=== PATIENT | male | born 1970 | race Caucasian/White ===

== ENCOUNTER 2023-11-08 08:13 | Outpatient (OUT) | payer BC, SELFPAY ==
[2023-11-08 09:13] LABS: Microalbumin Urine Random <1.3 mg/dL (<=30.0)
[2023-11-08 10:45] LABS: Estimated Average Glucose 171 mg/dL; Glycohemoglobin A1C 7.6 % (4.5-6.2)
== END 2023-11-08 08:14 | disposition home or self-care (01) ==
LOC: LAB 08:18
PROVIDERS: PCP Family Medicine; Visit Provider Family Medicine
DX: E11.65 Type 2 diabetes mellitus with hyperglycemia (principal)
CPT/HCPCS: 36415; 82043; 83036

== ENCOUNTER 2024-05-13 09:03 | Outpatient (OUT) | payer BC, SELFPAY ==
--- OUTSIDE RECORDS SUMMARY | 2024-05-13 09:25 | XMS_ITS | CCD ---
Author Organization [facility] Inform ion Partnership [facility] Care Team Providers Care Relay Shop Tester Name Role Phone LUIS ALFREDO, DR BETHANY Castillo Attending Unavailable LUIS ALFREDO, DR BETHANY Castillo Admitting Unavailable ROXANAEREVerenice, DR BETHANY Castillo Primary Care Unavailable LUIS ALFREDO, DR BETHANY Castillo Consulting Unavailable LUIS ALFREDO, DR BETHANY Castillo Admitting Unavailable VASQUEZR, DR BETHANY Castillo Primary Care Unavailable LUIS ALFREDO, DR BETHANY Castillo Consulting Unavailable LUIS ALFREDO, DR BETHANY Castillo Attending Unavailable KiannaGema Unavailable BETHANY LOBATO Attending Unavailable LUIS ALFREDO, BETHANY Attending Unavailable Medications Current Medications Medication Drug Class(es) Dates Sig (Normalized) Sig (Original) atorvastatin (1 source) HMG-CoA Reductase Inhibitor Lipitor Active Childrens Aspirin (1 source) Childrens Aspiri n Active glipiZIDE (1 source) Sulfonylurea glipiZIDE Active Lisinopril (1 source) Angiotensin Converting Enzyme Inhibitor Lisinopril Active metFORMIN (1 source) Biguanide metFORMIN HCl ER Active Multivitamin preparation (1 source) Multivitamin Act elizabeth pioglitazone (1 source) Peroxisome Proliferator Receptor alpha Agonist, Peroxisome Proliferator Receptor gamma Agonist, Thiazolidinedione Pioglitazone HCl Active Problems Problem Classification Problem Date Documented Da te Episodic/Chronic Coagulation and hemorrhagic disorders (1 source) Factor VIII deficiency; 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 Diabetes mellitus with complications (1 source) Type 2 diabetes mellitus with hyperglycemia; Translations: [TYPE 2 DM W/HYPERGLYCEMIA] Onset: 07-13-2022 Chronic Nutritional deficiencies (1 source) Vitamin D deficiency, unspecified; Translations: [VITAMIN D DEFICIENCY UNSPECIFIED] Onset: 07-13-2022 Chronic Other endocrine disorders (1 source) Testicular hypofunction; 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 pyogenes Org specific cx Ql (Throat) Negative cVidya Other [facility] cVidya Other TESTOSTERONE, TOTALon 2022 Testosterone [Mass/Vol] 285 ng/dL Normal 264-916 [facility] Comment on above: Result Comment: Adul t male reference interval is based on a population of healthy nonobese males (BMI <30) between 19 and 39 years old. Keyona et.al. JCEM 2017,102;0898-4742. PMID: [id number]. Performed By: #### T ESTTOT #### [facility] [address] [place] [address] Dr. Bakari Sullivan CBC AUTO DIFFon 03-18-2023 BASO # 0.1 103/ul Normal 0.0-0.1 [facility] Comment on above: Performed By: #### C BC #### [facility] [address] [place] [address] Dr. Bakari Sullivan Basophils/100 WBC (Bld) 0.8 % Normal 0.2-2.0 [facility] Comment on above: Performed By: #### C BC #### [facility] [address] [place] [address] Dr. Bakari Sullivan EO # 0.1 103/ul Normal 0.0-0.7 [facility] Comment on above: Performed By: #### C BC #### [facility] [address] [place] [address] Dr. Bakari Sullivan Eosinophils/100 WBC (Bld) 2.3 % Normal 0.9-7.0 [facility] Comment on above: Performed By: #### C BC #### [facility] [address] [place] [address] Dr. Bakari Sullivan Erythrocyte distribution width (RBC) [Ratio] 14.2 % Normal 11.0-15.0 [facility] Comment on above: Performed By: #### C BC #### [facility] [address] [place] [address] Dr. Bakari Sullivan Hematocrit (Bld) [Volume fraction] 45.2 % Normal 42.0-54.0 [facility] Comment on above: Performed By: #### C BC #### [facility] [address] [place] [address] Dr. Bakari Sullivan Hemoglobin (Bld) [Mass/Vol] 15.0 g/dL Normal 14.0-18.0 [facility] Comment on above: Performed By: #### C BC #### [facility] [address] [place] [address] Dr. Bakari Sullivan IG # 0.03 10e3/ul Normal 0.00-0.03 [facility] Comment on above: Performed By: #### C BC #### [facility] [address] [place] [address] Dr. Bakari Sullivan IG % 0.5 % Normal 0.0-0.5 [facility] Comment on above: Performed By: #### C BC #### [facility] [address] [place] [address] Dr. Bakari Sullivan LYMPH # 2.0 103/ul Normal 1.2-3.8 [facility] Comment on above: Performed By: #### C BC #### [facility] [address] [place] [address] Dr. Bakari Sullivan Lymphocytes/100 WBC (Bld) 31.6 % Normal 20.5-60.0 [facility] Comment on above: Performed By: #### C BC #### [facility] [address] [place] [address] Dr. Bakari Sullivan MANUAL DIFF REQ NO Normal [facility] Comment on above: Performed By: #### C BC #### [facility] [address] [place] [address] Dr. Bakari Sullivan MCH (RBC) [Entitic mass] 26.6 pg Normal 25.9-34.0 [facility] Comment on above: Performed By: #### C BC #### [facility] [address] [place] [address] Dr. Bakari Sullivan MCHC (RBC) [Mass/Vol] 33.2 g/dL Normal 29.9-35.2 [facility] Comment on above: Performed By: #### C BC #### [facility] [address] [place] [address] Dr. Bakari Sullivan MCV (RBC) [Entitic vol] 80.1 fL Normal 80.0-94.0 [facility] Comment on above: Performed By: #### C BC #### [facility] [address] [place] [address] Dr. Bakari Sullivan MONO # 0.5 103/ul Normal 0.3-0.8 [facility] Comment on above: Performed By: #### C BC #### [facility] [address] [place] [address] Dr. Bakari Sullivan Monocytes/100 WBC (Bld) 8.7 % Normal 1.7-12.0 [facility] Comment on above: Performed By: #### C BC #### [facility] [address] [place] [address] Dr. Bakari Sullivan NEUT # 3.5 103/ul Normal 1.4-6.5 [facility] Comment on above: Performed By: #### C BC #### [facility] [address] [place] [address] Dr. Bakari Sullivan Neutrophils/100 WBC (Bld) 56.1 % Normal 43.0-75.0 [facility] Comment on above: Performed By: #### C BC #### [facility] [address] [place] [address] Dr. Bakari Sullivan Platelet mean volume (Bld) [Entitic vol] 9.8 fL Normal 9.5-13.5 [facility] Comment on above: Performed By: #### C BC #### [facility] [address] [place] [address] Dr. Bakari Sullivan PLT 214 103/ul Normal 150-450 [facility] Comment on above: Performed By: #### C BC #### [facility] [address] [place] [address] Dr. Bakari Sullivan RBC 5.64 106/ul Normal 4.70-6.10 [facility] Comment on above: Performed By: #### C BC #### [facility] [address] [place] [address] Dr. Bakari Sullivan WBC 6.2 103/ul Normal 4.0-11.0 [facility] Comment on above: Performed By: #### C BC #### [facility] [address] [place] [address] Dr. Bakari Sullivan GLYCOHEMOGLOBIN A1Con 2022 ADA RECOMMENDATION SEE BELOW Normal [facility] Comment on above: Result Comment: ADA RECOMMENDED LIMIT 4.0 - 6.0 ADA THERAPEUTIC TARGET < 7.0 ACTION SUGGESTED > 7.0 Performed By: #### A 1C #### [facility] [address] [place] [address] Dr. Bakari Sullivan Glucose [Mass/Vol] 183 mg/dL Normal [facility] Comment on above: Performed By: #### A 1C #### [facility] [address] [place] [address] Dr. Bakari Sullivan HbA1c (Bld) [Mass fraction] 8.0 % Critically high 4.5-6.2 [facility] Comment on above: Performed By: #### A 1C #### [facility] [address] [place] [address] Dr. Bakari Sullivan LIPID PROFILEon 03-18-2023 CHOL-HDL RATIO NORM SEE BELOW Normal [facility] Comment on above: Result Comment: 3.3 - 4.4 LOW RISK 4.4 - 7.1 AVERAGE RISK 7.1 - 11.0 MODERATE RISK >11.0 HIGH RISK Performed By: #### C BC #### [facility] [address] [place] [address] Dr. Bakari Sullivan Cholesterol [Mass/Vol] 128 mg/dL Normal <=200 [facility] Comment on above: Performed By: #### C BC #### [facility] [address] [place] [address] Dr. Bakari Sullivan Cholesterol in HDL [Mass/Vol] 53 mg/dL Normal 40-60 [facility] Comment on above: Performed By: #### C BC #### [facility] [address] [address] [address] Bakari Sullivan Cholesterol in LDL [Mass/Vol] 61.4 mg/dL Normal [facility] Comment on above: Performed By: #### C BC #### [facility] [address] [address] [address] Bakari Sullivan Cholesterol.total/Ch olesterol in HDL [Mass ratio] 2.4 {ratio} Normal [facility] Comment on above: Performed By: #### C BC #### [facility] [address] [address] [address] Bakari Sullivan HDL NORMAL > or = 60 mg/dl - LOW CARDIOVASCULAR RISK <40 mg/dl - HIGH CARDIOVASCULAR RISK Normal [facility] Comment on above: Performed By: #### C BC #### [facility] [address] [place] [address] Dr. Bakari Sullivan LDL CALC NORMAL SEE BELOW Normal [facility] Comment on above: Result Comment: <100 mg/dl OPTIMAL 100 - 129 mg/dl NEAR OR ABOVE OPTIMAL 130 - 159 mg/dl BORDERLINE HIGH 160 - 189 mg/dl HIGH >190 mg/dl VERY HIGH Performed By: #### C BC #### [facility] [address] [place] [address] Dr. Bakari Sullivan Triglyceride [Mass/Vol] 68 mg/dL Normal <=150 [facility] Comment on above: Performed By: #### C BC #### [facility] [address] [address] [address] Bakari Sullivan VLDL CALC 13.6 mg/dL Normal [facility] Comment on above: Performed By: #### C BC #### [facility] [address] [address] [address] Bakari Sullivan LIVER PROFILEon 03-18-2023 Albumin [Mass/Vol] 3.5 g/dL Normal 3.4-5.[address] [facility] Comment on above: Performed By: #### C BC #### [facility] [address] [place] [address] Dr. Bakari Sullivan Albumin/Globulin [Mass ratio] 0.9 {ratio} Normal [facility] Comment on above: Performed By: #### C BC #### [facility] [address] [place] [address] Dr. Bakari Sullivan ALP [Catalytic activity/Vol] 65 U/L Normal 46-116 [facility] Comment on above: Performed By: #### C BC #### [facility] [address] [address] [address] Bakari Sullivan ALT [Catalytic activity/Vol] 26 U/L Normal 16-63 [facility] Comment on above: Performed By: #### C BC #### [facility] [address] [address] [address] Bakari Sullivan AST [Catalytic activity/Vol] 17 U/L Normal 15-37 [facility] Comment on above: Performed By: #### C BC #### [facility] [address] [place] [address] Dr. Bakari Sullivan BILI, CONJUGATED 0.2 mg/dL Normal 0.0-0.2 [facility] Comment on above: Performed By: #### C BC #### [facility] [address] [address] [address] Bakari Sullivan Bilirubin [Mass/Vol] 1.1 mg/dL Critically high 0.2-1.0 [facility] Comment on above: Performed By: #### C BC #### [facility] [address] [place] [address] Dr. Bakari Sullivan Globulin (S) [Mass/Vol] 3.8 g/dL Normal [facility] Comment on above: Performed By: #### C BC #### [facility] [address] [place] [address] Dr. Bakari Sullivan Protein [Mass/Vol] 7.3 g/dL Normal 6.4-8.[address] [facility] Comment on above: Performed By: #### C BC #### [facility] [address] [place] [address] Dr. Bakari Sullivan PROF CHEM 8 (BAS METB)on Anion gap [Moles/Vol] 8.4 mmol/L Normal [facility] Comment on above: Performed By: #### C BC #### [facility] [address] [address] [address] Bakari Sullivan Calcium [Mass/Vol] 9.1 mg/dL Normal 8.5-10.[address] [facility] Comment on above: Performed By: #### C BC #### [facility] [address] [address] [address] Bakari Sullivan Chloride [Moles/Vol] 103 mmol/L Normal 98-107 [facility] Comment on above: Performed By: #### C BC #### [facility] [address] [place] [address] Dr. Bakari Sullivan CO2 [Moles/Vol] 28.8 mmol/L Normal 21.0-32.0 [facility] Comment on above: Performed By: #### C BC #### [facility] [address] [place] [address] Dr. Bakari Sullivan Creatinine [Mass/Vol] 0.95 mg/dL Normal 0.70-1.30 [facility] Comment on above: Performed By: #### C BC #### [facility] [address] [place] [address] Dr. Bakari Sullivan EGFR-AF HUNGARIAN >60 Normal >=60 [facility] Comment on above: Performed By: #### C BC #### [facility] [address] [place] [address] Dr. Bakari Sulliavn EGFR-NON AF HUNGARIAN >60 Normal >=60 [facility] Comment on above: Performed By: #### C BC #### [facility] [address] [place] [address] Dr. Bakari Sullivan Glucose [Mass/Vol] 230 mg/dL Critically high 74-106 [facility] Comment on above: Performed By: #### C BC #### [facility] [address] [place] [address] Dr. Bakari Sullivan Potassium [Moles/Vol] 4.2 mmol/L Normal 3.5-5.1 [facility] Comment on above: Performed By: #### C BC #### [facility] [address] [address] [address] Bakari Sullivan Sodium [Moles/Vol] 136 mmol/L Normal 136-[address] [facility] Comment on above: Performed By: #### C BC #### [facility] [id number] Bakari Sullivan Urea nitrogen [Mass/Vol] 16.0 mg/dL Normal 7.0-18.0 [facility] Comment on above: Performed By: #### C BC #### [facility] [address] [address] [address] Bakari Sullivan Urea nitrogen/Creatinine [Mass ratio] 16.8 mg/mg Normal [facility] Comment on above: Performed By: #### C BC #### [facility] [address] [address] [address] Bakari Sullivan TSHon 03-18-2023 TSH 2.528 uIU/mL Normal 0.358-3.740 [facility] Comment on above: Performed By: #### C BC #### [facility] [id number] Bakari Sullivan MICROALBUMIN URINEon 022 Albumin, Urine <3.0 Normal Not Estab. [facility] Comment on above: Result Comment: Ve rified by repeat analysis Performed By: #### M ALBLC #### [facility] [address] [address] [address] Bakari Sullivan TESTOSTERONE, TOTALon 2021 Testosterone [Mass/Vol] 215 ng/dL Critically low 264-916 [facility] Comment on above: Result Comment: Adul t male reference interval is based on a population of healthy nonobese males (BMI <30) between 19 and 39 years old. desiree Rand.al. JCEM 2017,102;2291-3130. PMID: [id number]. Performed By: #### T ESTTOT #### [facility] [address] [address] [address] Bakari Sullivan VIT D 25-OH LABCORPon 2021 Vitamin D, 25-Hydroxy 36.7 ng/mL Normal 30.0-100.0 [facility] Comment on above: Result Comment: Concepcion min D deficiency has been defined by the [place] of [employer] and an Endocrine Society practice guideline as a level of serum 25-OH vitamin D less than 20 ng/mL (1,2). The Endocrine Society went on to further define vitamin D insufficiency as a level between 21 and 29 ng/mL (2). 1. IOM ([place] of [employer]). 2010. Dietary reference intakes for calcium and D. Richard [place]: The National Academies Press. 2. Janet MF, Nancy SÁNCHEZ, Palmoo LERMA, et al. Evaluation, treatment, and prevention of vitamin D deficiency: an Endocrine Society clinical practice guideline. JCEM. 2010; 96(7):1911-30. Performed By: #### V ITADLC #### [facility] [address] [place] [address] Dr. Bakari Sullivan CBC AUTO DIFFon 07-12-2022 BASO # 0.1 103/ul Normal 0.0-0.1 [facility] Comment on above: Performed By: #### C BC #### [facility] [address] [address] [address] Bakari Sullivan Basophils/100 WBC (Bld) 0.9 % Normal 0.2-2.0 [facility] Comment on above: Performed By: #### C BC #### [facility] [address] [place] [address] Dr. Bakari Sullivan EO # 0.1 103/ul Normal 0.0-0.7 [facility] Comment on above: Performed By: #### C BC #### [facility] [address] [address] [address] Bakari Sullivan Eosinophils/100 WBC (Bld) 1.6 % Normal 0.9-7.0 [facility] Comment on above: Performed By: #### C BC #### [facility] [address] [place] [address] Dr. Bakari Sullivan Erythrocyte distribution width (RBC) [Ratio] 14.5 % Normal 11.0-15.0 [facility] Comment on above: Performed By: #### C BC #### [facility] [address] [address] [address] Bakari Sullivan Hematocrit (Bld) [Volume fraction] 47.5 % Normal 42.0-54.0 [facility] Comment on above: Performed By: #### C BC #### [facility] [address] [place] [address] Dr. Bakari Sullivan Hemoglobin (Bld) [Mass/Vol] 15.8 g/dL Normal 14.0-18.0 [facility] Comment on above: Performed By: #### C BC #### [facility] [address] [place] [address] Dr. Bakari Sullivan IG # 0.02 10e3/ul Normal 0.00-0.03 [facility] Comment on above: Performed By: #### C BC #### [facility] [address] [place] [address] Dr. Bakari Sullivan IG % 0.3 % Normal 0.0-0.5 [facility] Comment on above: Performed By: #### C BC #### [facility] [address] [place] [address] Dr. Bakari Sullivan LYMPH # 1.9 103/ul Normal 1.2-3.8 [facility] Comment on above: Performed By: #### C BC #### [facility] [address] [place] [address] Dr. Bakari Sullivan Lymphocytes/100 WBC (Bld) 27.9 % Normal 20.5-60.0 [facility] Comment on above: Performed By: #### C BC #### [facility] [address] [place] [address] Dr. Bakari Sullivan MANUAL DIFF REQ NO Normal [facility] Comment on above: Performed By: #### C BC #### [facility] [address] [place] [address] Dr. Bakari Sullivan MCH (RBC) [Entitic mass] 27.1 pg Normal 25.9-34.0 [facility] Comment on above: Performed By: #### C BC #### [facility] [address] [address] [address] Bakari Sullivan MCHC (RBC) [Mass/Vol] 33.3 g/dL Normal 29.9-35.2 [facility] Comment on above: Performed By: #### C BC #### [facility] [address] [address] [address] Bakari Sullivan MCV (RBC) [Entitic vol] 81.5 fL Normal 80.0-94.0 [facility] Comment on above: Performed By: #### C BC #### [facility] [address] [address] [address] Bakari Sullivan MONO # 0.6 103/ul Normal 0.3-0.8 [facility] Comment on above: Performed By: #### C BC #### [facility] [address] [place] [address] Dr. Bakari Sullivan Monocytes/100 WBC (Bld) 8.4 % Normal 1.7-12.0 [facility] Comment on above: Performed By: #### C BC #### [facility] [address] [place] [address] Dr. Bakari Sullivan NEUT # 4.2 103/ul Normal 1.4-6.5 [facility] Comment on above: Performed By: #### C BC #### [facility] [address] [place] [address] Dr. Bakari Sullivan Neutrophils/100 WBC (Bld) 60.9 % Normal 43.0-75.0 [facility] Comment on above: Performed By: #### C BC #### [facility] [address] [place] [address] Dr. Bakari Sullivan Platelet mean volume (Bld) [Entitic vol] 10.3 fL Normal 9.5-13.5 [facility] Comment on above: Performed By: #### C BC #### [facility] [address] [place] [address] Dr. Bakari Sullivan PLT 237 103/ul Normal 150-450 [facility] Comment on above: Performed By: #### C BC #### [facility] [address] [address] [address] Bakari Sullivan RBC 5.83 106/ul Normal 4.70-6.10 [facility] Comment on above: Performed By: #### C BC #### [facility] [address] [place] [address] Dr. Bakari Sullivan WBC 6.9 103/ul Normal 4.0-11.0 [facility] Comment on above: Performed By: #### C BC #### [facility] [address] [place] [address] Dr. Bakari Sullivan GLYCOHEMOGLOBIN A1Con 2021 ADA RECOMMENDATION SEE BELOW Normal [facility] Comment on above: Result Comment: ADA RECOMMENDED LIMIT 4.0 - 6.0 ADA THERAPEUTIC TARGET < 7.0 ACTION SUGGESTED > 7.0 Performed By: #### C BC #### [facility] [address] [place] [address] Dr. Bakari Sullivan Glucose [Mass/Vol] 143 mg/dL Normal [facility] Comment on above: Performed By: #### C BC #### [facility] [address] [place] [address] Dr. Bakari Sullivan HbA1c (Bld) [Mass fraction] 6.6 % Critically high 4.5-6.2 [facility] Comment on above: Performed By: #### C BC #### [facility] [address] [place] [address] Dr. Bakari Sullivan LIPID PROFILEon 07-12-2022 CHOL-HDL RATIO NORM SEE BELOW Normal [facility] Comment on above: Result Comment: 3.3 - 4.4 LOW RISK 4.4 - 7.1 AVERAGE RISK 7.1 - 11.0 MODERATE RISK >11.0 HIGH RISK Performed By: #### T SH, LIPID, LIVER, BMP #### [facility] [address] [place] [address] Dr. Bakari Sullivan Cholesterol [Mass/Vol] 140 mg/dL Normal <=200 [facility] Comment on above: Performed By: #### T SH, LIPID, LIVER, BMP #### [facility] [address] [place] [address] Dr. Bakari Sullivan Cholesterol in HDL [Mass/Vol] 55 mg/dL Normal 40-60 [facility] Comment on above: Performed By: #### T SH, LIPID, LIVER, BMP #### [facility] [address] [address] [address] Bakari Sullivan Cholesterol in LDL [Mass/Vol] 63.8 mg/dL Normal [facility] Comment on above: Performed By: #### T SH, LIPID, LIVER, BMP #### [facility] [address] [address] [address] Bakari Sullivan Cholesterol.total/Ch olesterol in HDL [Mass ratio] 2.5 {ratio} Normal [facility] Comment on above: Performed By: #### T SH, LIPID, LIVER, BMP #### [facility] [address] [address] [address] Bkaari Sullivan HDL NORMAL > or = 60 mg/dl - LOW CARDIOVASCULAR RISK <40 mg/dl - HIGH CARDIOVASCULAR RISK Normal [facility] Comment on above: Performed By: #### T SH, LIPID, LIVER, BMP #### [facility] [address] [place] [address] Dr. Bakari Sullivan LDL CALC NORMAL SEE BELOW Normal [facility] Comment on above: Result Comment: <100 mg/dl OPTIMAL 100 - 129 mg/dl NEAR OR ABOVE OPTIMAL 130 - 159 mg/dl BORDERLINE HIGH 160 - 189 mg/dl HIGH >190 mg/dl VERY HIGH Performed By: #### T SH, LIPID, LIVER, BMP #### [facility] [address] [address] [address] Bakari Sullivan Triglyceride [Mass/Vol] 106 mg/dL Normal <=150 [facility] Comment on above: Performed By: #### T SH, LIPID, LIVER, BMP #### [facility] [address] [place] [address] Dr. Bakari Sullivan VLDL CALC 21.2 mg/dL Normal [facility] Comment on above: Performed By: #### T SH, LIPID, LIVER, BMP #### [facility] [address] [address] [address] Bakari Sullivan LIVER PROFILEon 07-12-2022 Albumin [Mass/Vol] 4.1 g/dL Normal 3.4-5.[address] [facility] Comment on above: Performed By: #### T SH, LIPID, LIVER, BMP #### [facility] [address] [place] [address] Dr. Bakari Sullivan Albumin/Globulin [Mass ratio] 1.1 {ratio} Normal [facility] Comment on above: Performed By: #### T SH, LIPID, LIVER, BMP #### [facility] [address] [place] [address] Dr. Bakari Sullivan ALP [Catalytic activity/Vol] 73 U/L Normal 46-116 [facility] Comment on above: Performed By: #### T SH, LIPID, LIVER, BMP #### [facility] [address] [place] [address] Dr. Bakari Sullivan ALT [Catalytic activity/Vol] 21 U/L Normal 16-63 [facility] Comment on above: Performed By: #### T SH, LIPID, LIVER, BMP #### [facility] [address] [place] [address] Dr. Bakari Sullivan AST [Catalytic activity/Vol] 17 U/L Normal 15-37 [facility] Comment on above: Performed By: #### T SH, LIPID, LIVER, BMP #### [facility] [address] [place] [address] Dr. Bakari Sullivan BILI, CONJUGATED 0.3 mg/dL Critically high 0.0-0.2 [facility] Comment on above: Performed By: #### T SH, LIPID, LIVER, BMP #### [facility] [address] [place] [address] Dr. Bakari Sullivan Bilirubin [Mass/Vol] 1.6 mg/dL Critically high 0.2-1.0 [facility] Comment on above: Performed By: #### T SH, LIPID, LIVER, BMP #### [facility] [address] [place] [address] Dr. Bakari Sullivan Globulin (S) [Mass/Vol] 3.8 g/dL Normal [facility] Comment on above: Performed By: #### T SH, LIPID, LIVER, BMP #### [facility] [address] [place] [address] Dr. Bakari Sullivan Protein [Mass/Vol] 7.9 g/dL Normal 6.4-8.2 [facility] Comment on above: Performed By: #### T SH, LIPID, LIVER, BMP #### [facility] [address] [place] [address] Dr. Bakari Sullivan PROF CHEM 8 (BAS METB)on Anion gap [Moles/Vol] 13.0 mmol/L Normal [facility] Comment on above: Performed By: #### T SH, LIPID, LIVER, BMP #### [facility] [address] [place] [address] Dr. Bakari Sullivan Calcium [Mass/Vol] 9.3 mg/dL Normal 8.5-10.1 [facility] Comment on above: Performed By: #### T SH, LIPID, LIVER, BMP #### [facility] [address] [place] [address] Dr. Bakari Sullivan Chloride [Moles/Vol] 101 mmol/L Normal 98-107 [facility] Comment on above: Performed By: #### T SH, LIPID, LIVER, BMP #### [facility] [address] [place] [address] Dr. Bakari Sullivan CO2 [Moles/Vol] 28.3 mmol/L Normal 21.0-32.0 [facility] Comment on above: Performed By: #### T SH, LIPID, LIVER, BMP #### [facility] [address] [place] [address] Dr. Bakari Sullivan Creatinine [Mass/Vol] 0.87 mg/dL Normal 0.70-1.30 [facility] Comment on above: Performed By: #### T SH, LIPID, LIVER, BMP #### [facility] [address] [place] [address] Dr. Bakari Sullivan EGFR-AF HUNGARIAN >60 Normal >=60 [facility] Comment on above: Performed By: #### T SH, LIPID, LIVER, BMP #### [facility] [address] [address] [address] Bakari Sullivan EGFR-NON AF HUNGARIAN >60 Normal >=60 [facility] Comment on above: Performed By: #### T SH, LIPID, LIVER, BMP #### [facility] [address] [place] [address] Dr. Bakari Sullivan Glucose [Mass/Vol] 133 mg/dL Critically high 74-106 [facility] Comment on above: Performed By: #### T SH, LIPID, LIVER, BMP #### [facility] [address] [place] [address] Dr. Bakari Sullivan Potassium [Moles/Vol] 4.3 mmol/L Normal 3.5-5.1 [facility] Comment on above: Performed By: #### T SH, LIPID, LIVER, BMP #### [facility] [address] [place] [address] Dr. Bakari Sullivan Sodium [Moles/Vol] 138 mmol/L Normal 136-[address] [facility] Comment on above: Performed By: #### T SH, LIPID, LIVER, BMP #### [facility] [address] [place] [address] Dr. Bakari Sullivan Urea nitrogen [Mass/Vol] 16.0 mg/dL Normal 7.0-18.0 [facility] Comment on above: Performed By: #### T SH, LIPID, LIVER, BMP #### [facility] [address] [place] [address] Dr. Bakari Sullivan Urea nitrogen/Creatinine [Mass ratio] 18.4 mg/mg Normal [facility] Comment on above: Performed By: #### T SH, LIPID, LIVER, BMP #### [facility] [address] [place] [address] Dr. Bakari Sullivan TSHon 07-12-2022 TSH 2.381 uIU/mL Normal 0.358-3.740 [facility] Comment on above: Performed By: #### T YASMIN, LIPID, LIVER, BMP #### [facility] [address] [place] [address] Dr. Bakari Sullivan Vital Signs Date Time Vital Sign Value Performing Clinician Facility 07-29-2023 11:55-0400 Body height 175.26 cm Gema Hutchison Other [facility] Other 07-29-2023 11:55-0400 Body mass index (BMI) [Ratio] 35.44 kg/m2 Gema Hutchison Other [facility] Other 07-29-2023 11:55-0400 Body temperature 98.1 [degF] Gema Hutchison Other [facility] Other 07-29-2023 11:55-0400 Body weight 108.86 kg Gema Hutchison Other [facility] Other 07-29-2023 11:55-0400 Diastolic blood pressure 80 mm[Hg] Gema Lindseymond Other [facility] Other 07-29-2023 11:55-0400 Respiratory rate 18 /min Gema Hutchison Other [facility] Other 07-29-2023 11:55-0400 SaO2% (BldA) [Mass fraction] 98 % Gema Hutchison Other [facility] Other 07-29-2023 11:55-0400 Systolic blood pressure 133 mm[Hg] Gema Kianna Other [facility] Other Encounters Encounter Date Encounter Type Care Provider Facility Start: 04-17-2024 End: 04-17-2024 ambulatory BETHANY NADERER Not Available Start: 10-26-2023 End: 10-26-2023 ambulatory BETHANY NADERER Not Available Start: 07-29-2023 End: 07-29-2023 ambulatory Gema Kianna Other [facility] Other Start: 07-29-2023 Office outpatient vi sit 15 minutes Gema Hutchison [facility] Start: 03-23-2023 Encounter for genera l adult medical examination without abnormal findings DR BETHANY LOBATO [facility] Start: 03-18-2023 End: 03-19-[address] BETHANY LOBATO Facility:[facility] Start: 03-18-2023 End: 03-19-2023 Encounter for general adult medical examination without abnormal findings DR BETHANY LOBATO Facility:[facility] Start: 07-12-2022 End: 07-13-[address] BETHANY LOBATO Facility:[facility] Procedures Date Procedure Procedure Detail Performing Clinician Start: 07-12-[address] BETHANY ROMO Comment on above: Performed By: #### C BC #### [facility] [address] [place] [address] Dr. Bakari Sullivan Payers Date Payer Category Payer Unknown [id number] [id number] 1970 Unknown [id number] 1970 Unknown [id number] 1969 Unknown [id number] 1959 Unknown [id number] Social History Date Type Detail Facility Unknown if ever smoked [facility] Other Sex Assigned At Sex Assigned At Bir [facility] Other Evaluation note 07-29-2023 Note Date & Type Note Facility 07-29-2023 Evaluation note Encounter Date Diagnosis Assessment Notes Jul, Sore throat (ICD-10 - J02.9) Jul, Viral upper respiratory infection (ICD-10 - J06.9) Drink plenty fluids, get plenty of rest. Take Tylenol or Motrin for aches pains or fevers. Consider taking Mucinex and/or Sudafed for congestion. Follow-up with your family physician if no improvement in 2 to 3 days [facility] Other History general Narrative - Reported Note Date & Type Note Facility History general Narrative - Reported Type Medical History diabetes type II Medical History factor 8 bleeding disorder Medical History Hypercholesteremia Medical History HTN (hypertension) [facility] Other Summary Purpose Family History No Family History Records FoundNo Family History Records Found Advance Directives No Advanced Directives Records FoundNo Advanced Directives Records Found Additional Source Comments (unrecognized sect ion and content) No Status Records FoundNo Status Records Found INFORMATION SOURCE (unrecogn ized section and content) DATE CREATED AUTHOR 03/24/2023 [facility] DATE CREATED AUTHOR AUTHOR'S ORGANIZ ATION 04/18/2024 [facility] EPIC REASON FOR VISIT (unrecogniz ed section and content) SORE THROAT, SCRATCHY, RUNNY NOSE FOR RECORDS PERTAINING TO PATIENTS WHO ARE OR HAVE BEEN ENROLLED IN A CHEMICAL DEPENDENCY/SUBSTANCEABUSE PROGRAM, SOME INFORMATION MAY BE OMITTED. This clinical summary was aggregated from multiple sources. Caution should be exercised in using it in the provision of clinical care. This summary normalizes information from multiple sources, and as a consequence, information in this document may materially change the coding, format and clinical context of patient data. In addition, data may be omitted in some cases. CLINICAL DECISIONS SHOULD BE BASED ON THE PRIMARY CLINICAL RECORDS. [employer] provides no warranty or guarantee of the accuracy or completeness of information in this document.
[2024-05-13 09:37] LABS: Basophils Absolute Auto 0.1 10^3/uL (0.0-0.1); Basophils Percent Auto 0.7 % (0.2-2.0); Eosinophils Absolute Auto 0.1 10^3/uL (0.0-0.7); Eosinophils Percent Auto 1.9 % (0.9-7.0); Hematocrit 48.2 % (42.0-54.0); Hemoglobin 15.8 g/dL (14.0-18.0); Immature Granulocytes Abs Auto 0.01 10^3/uL (0.00-0.03); Immature Granulocytes Pct Auto 0.1 % (0.0-0.5); Lymphocytes Absolute Auto 1.8 10^3/uL (1.2-3.8); Lymphocytes Percent Auto 26.6 % (20.5-60.0); Mean Corpuscular HGB Conc 32.8 g/dL (29.9-35.2); Mean Corpuscular Hemoglobin 26.6 pg (25.9-34.0); Mean Corpuscular Volume 81.3 fL (80.0-94.0); Mean Platelet Volume 9.8 fL (9.5-13.5); Monocytes Absolute Auto 0.6 10^3/uL (0.3-0.8); Monocytes Percent Auto 8.9 % (1.7-12.0); Neutrophils Absolute Auto 4.3 10^3/uL (1.4-6.5); Neutrophils Percent Auto 61.8 % (43.0-75.0); Platelet Count 222 10^3/uL (150-450); Red Blood Count 5.93 10^6/uL (4.70-6.10); Red Cell Distribution Width 14.2 % (11.0-15.0); White Blood Count 6.9 10^3/uL (4.0-11.0)
[2024-05-13 09:46] LABS: Estimated Average Glucose 163 mg/dL; Glycohemoglobin A1C 7.3 % (4.5-6.2)
[2024-05-13 11:17] LABS: Prostate Specific Antigen Scrn 1.07 ng/mL (<=4.00)
[2024-05-13 11:34] LABS: Alanine Aminotransferase 23 U/L (16-63); Albumin Globulin Ratio 0.9; Albumin Level 3.7 g/dL (3.4-5.0); Alkaline Phosphatase 73 U/L (46-116); Anion Gap 13.2; Aspartate Amino Transferase 21 U/L (15-37); BUN Creatinine Ratio 21.1; Bilirubin Direct 0.4 mg/dL (0.0-0.2); Bilirubin Total 2.3 mg/dL (0.2-1.0); Calcium 9.1 mg/dL (8.5-10.1); Carbon Dioxide 26.8 mmol/L (21.0-32.0); Chloride 102 mmol/L (98-107); Chol HDL Ratio 2.1; Cholesterol 122 mg/dL (<=200); Estimated GFR (African America >60 (>=60); Estimated GFR (Non-African Ame >60 (>=60); Globulin 3.9 g/dL; Glucose 199 mg/dL (74-106); HDL Cholesterol 57 mg/dL (40-60); Sodium 138 mmol/L (136-145); Thyroid Stimulating Hormone 1.656 uIU/mL (0.358-3.740); Total Protein 7.6 g/dL (6.4-8.2); Triglycerides 70 mg/dL (<=150)
== END 2024-05-13 09:04 | disposition home or self-care (01) ==
LOC: LAB 09:04
PROVIDERS: PCP Family Medicine; Visit Provider Family Medicine
DX: Z00.00 Encounter for general adult medical examination without abnormal findings (principal)
CPT/HCPCS: 36415; 80048; 80061; 80076; 83036; 84443; 85025; G0103

== ENCOUNTER 2024-11-02 08:24 | Outpatient (OUT) | payer BC, SELFPAY ==
--- OUTSIDE RECORDS SUMMARY | 2024-11-02 08:27 | XMS_ITS | CCD ---
Author Organization [facility] Inform ion Partnership [facility] Care Team Providers Care Community Service Technician Name Role Phone LUIS ALFREDO, DR WILLY Castillo Attending Unavailable ROXANAERER, DR WILLY Castillo Admitting Unavailable ROXANAEREVerenice, DR WILLY Castillo Primary Care Unavailable LUIS ALFREDO, DR WILLY Castillo Consulting Unavailable ROXANAEREVerenice, DR WILLY Castillo Admitting Unavailable NADERER, DR WILYL Castillo Primary Care Unavailable LUIS ALFREDO, DR WILLY Castillo Consulting Unavailable LUIS ALFREDO, DR WILLY Castillo Attending Unavailable Gema Hutchison Unavailable Willy Lobato MD Primary Care Provider [phone] Willy Lobato MD Unavailable WILLY LOBATO Attending Unavailable LUIS ALFREDO, WILLY Attending Unavailable LUIS ALFREDO, WILLY Attending Unavailable Medications Current Medications Medication Drug Class(es) Dates Sig (Normalized) Sig (Original) atorvastatin 40 mg oral tablet (7 sources) HMG-CoA Reductase Inhibitor Start: 07-02-2024 take 1 tablet by mouth once daily at bedtime atorvastatin (Lipitor) 40 MG tablet Indications: Hyperlipidemia, unspecified (CMS/HCC) TAKE 1 TABLET BY MOUTH EVERYDAY AT BEDTIME 90 tablet 1 07/02/2024 Active Lipitor Active Childrens Aspirin (1 source) Childrens Aspiri n Active glipiZIDE 10 mg oral tablet (11 sources) Sulfonylurea Start: 10-23-2024 take 1 tablet by mouth once daily glipiZIDE (Glucotrol) 10 MG tablet Indications: Type 2 diabetes mellitus with hyperglycemia, without long-term current use of insulin (CMS/HCC) Take 1 tablet (10 mg) by mouth Daily 10/23/2024 Active Start: 10-23-2024 take 1 tablet by alexandria th once daily glipiZIDE (Glucotrol) 10 MG tablet Indications: Type 2 diabetes mellitus with hyperglycemia, without long-term current use of insulin (CMS/[facility]) Take 1 tablet (10 mg) by mouth Daily 10/23/2024 Active Start: 10-01-2024 End: 10-23-2024 take 1 tablet by mouth twice daily glipiZIDE (Glucotrol) 10 MG tablet Indications: Type 2 diabetes mellitus with hyperglycemia, without long-term current use of insulin (CMS/HCC) TAKE 1 TABLET BY MOUTH TWICE A DAY 180 tablet 3 10/01/2024 10/23/2024 Discontinued (Dose adjustment) Start: 07-19-2024 take 1 tablet by alexandria th once daily glipiZIDE (Glucotrol) 10 MG tablet Indications: Type 2 diabetes mellitus with hyperglycemia, without long-term current use of insulin ([facility]) Take 1 tablet (10 mg) by mouth Daily 07/19/2024 Active Start: 07-19-2024 take 1 tablet by alexand[place] th once daily glipiZIDE (Glucotrol) 10 MG tablet Indications: Type 2 diabetes mellitus with hyperglycemia, without long-term current use of insulin ([facility]) Take 1 tablet (10 mg) by mouth Daily 07/19/2024 Active Start: 10-31-2023 End: 07-19-2024 take 1 tablet by mouth twice daily glipiZIDE (Glucotrol) 10 MG tablet Indications: Type 2 diabetes mellitus with hyperglycemia, without long-term current use of insulin ([facility]) TAKE 1 TABLET BY MOUTH TWICE A DAY 180 tablet 3 10/31/2023 07/19/2024 Discontinued (Dose adjustment) glipiZIDE Active lisinopril 10 mg oral tablet (7 sources) Angiotensin Converting Enzyme Inhibitor Start: 07-04-2024 take 1 tablet by mouth once daily lisinopril 10 MG tablet Indications: Essential (primary) hypertension (CMS/HCC) , Benign essential hypertension (CMS/HCC) TAKE 1 TABLET BY MOUTH EVERY DAY 90 tablet 1 07/04/2024 Active Lisinopril Activ e metFORMIN (1 source) Biguanide metFORMIN HCl ER Active methocarbamol 750 mg oral tablet (6 sources) Muscle Relaxant Start: End: take 1 tablet by mouth four times daily as needed for muscle spasms methocarbamol (Robaxin) 750 MG tablet Indications: Chronic right-sided thoracic back pain Take 1 tablet (750 mg) by mouth 4 (four) times a day as needed for muscle spasms 60 tablet 2 04/17/2024 10/23/2024 Discontinued Multivitamin preparation (1 source) Multivitamin Act elizabeth pioglitazone 30 mg oral tablet (7 sources) Peroxisome Proliferator Receptor alpha Agonist, Peroxisome Proliferator Receptor gamma Agonist, Thiazolidinedione Start: 024 take 1 tablet by mouth once daily pioglitazone (Actos) 30 MG tablet Indications: Type 2 diabetes mellitus with hyperglycemia (CMS/HCC) TAKE 1 TABLET BY MOUTH EVERY DAY 90 tablet 1 07/02/2024 Active Pioglitazone HCl Active 0.25 mg, 0.5 mg dose 1.5 ml semaglutide 1.34 mg/ml pen injector (3 sources) Start: 04-17-2024 End: 07-19-2024 semaglutide (Ozempic, 0.25 or 0.5 MG/DOSE,) 2 MG/1.5ML solution pen-injector Indications: Type 2 diabetes mellitus with hyperglycemia, without long-term current use of insulin (CMS/HCC) 0.25 mg SC weekly x 4 weeks, then 0.5 mg weekly 1 each 3 04/17/2024 07/19/2024 Discontinued semaglutide (Ozempic, 1 MG/DOSE,) 4 MG/3ML solution pen-injector (5 sources) Start: 07-19-2024 inject 1 mg by subcutaneous injection every week semaglutide (Ozempic, 1 MG/DOSE,) 4 MG/3ML solution pen-injector Indications: Type 2 diabetes mellitus with hyperglycemia, without long-term current use of insulin (CMS/HCC) Inject 1 mg under the skin 1 (one) time per week 1 each 5 07/19/2024 Active Problems Active Problems Problem Classification Problem Date Documented Da te Episodic/Chronic Coagulation and hemorrhagic disorders (1 source) Factor VIII deficiency; 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 Diabetes mellitus with complications (11 sources) Type 2 diabetes mellitus with hyperglycemia; Translations: [Hyperglycemia due to type 2 diabetes mellitus] Onset: 07-13-2022 10-26-2023 Chronic Disorders of lipid metabolism (6 sources) Dyslipidemia; Translations: [Hyperlipidemia, unspecified] Onset: 10-26-2023 10-26-2023 Chronic Essential hypertension (10 sources) Benign hypertension; Translations: [Essential (primary) hypertension] Onset: 10-26-2023 10-26-2023 Chronic Other endocrine disorders (1 source) Testicular hypofunction; Translations: [TESTICULAR HYPOFUNCTION] Onset: 03-23-2023 Chronic Other endocrine disorders (6 sources) Testicular hypofunction; Translations: [Testicular hypofunction] Onset: 10-26-2023 10-26-2023 Chronic Other non-traumatic joint disorders (4 sources) Chronic pain of right upper limb; Translations: [Pain in right shoulder] Onset: 10-23-2024 10-23-2024 Episodic Other nutritional; endocrine; and metabolic disorders (7 sources) Body mass index 30+ - obesity; Translations: [Obesity, unspecified] Onset: 07-19-2024 07-19-2024 Chronic Other nutritional; endocrine; and metabolic disorders (4 sources) Obesity caused by energy imbalance; Translations: [Class 1 obesity due to excess calories with serious comorbidity and body mass index (BMI) of 34.0 to 34.9 in adult] Onset: 07-19-2024 10-23-2024 Chronic Other screening for suspected conditions (not mental disorders or infectious disease) (2 sources) Patient encounter status; Translations: [Encounter for screening for malignant neoplasm of colon] 10-23-2024 Episodic Other upper respiratory infections (2 sources) Acute pharyngitis, unspecified; Translations: [Acute upper respiratory infection, unspecified] Episodic Past or Other Problems Problem Classification Problem Date Documented Da te Episodic/Chronic Nutritional deficiencies (7 sources) Vitamin D deficiency, unspecified; Translations: [Vitamin D deficiency] Onset: 07-13-2022 Resolved: 04-17-2024 04-17-2024 Chronic Phlebitis; thrombophlebitis and thromboembolism (6 sources) H/O: Deep vein thrombosis; Translations: [Personal history of other venous thrombosis and embolism] Onset: 10-26-2023 10-26-2023 Episodic Spondylosis; intervertebral disc disorders; other back problems (12 sources) Chronic thoracic back pain; Translations: [Pain in thoracic spine] Onset: 04-17-2024 Resolved: 04-17-2024 04-17-2024 Episodic Results Test Name Value Interpretation Reference Range Facility [facility] 07-29-2023 S. pyogenes Org specific cx Ql (Throat) Negative [employer] Other [employer] Other TESTOSTERONE, TOTALon 2022 Testosterone [Mass/Vol] 285 ng/dL Normal 264-916 [facility] Comment on above: Result Comment: Adul t male reference interval is based on a population of healthy nonobese males (BMI <30) between 19 and 39 years old. Keyona, et.al. JCEM 2017,102;6830-7880. PMID: [id number]. Performed By: #### T ESTTOT #### [facility] [address] [place] [address] Dr. Bakari Sullivan CBC AUTO DIFFon 03-18-2023 BASO # 0.1 103/ul Normal 0.0-0.1 [facility] Comment on above: Performed By: #### C BC #### [facility] [address] [place] [address] Dr. Bakari Sullivan Basophils/100 WBC (Bld) 0.8 % Normal 0.2-2.0 [facility] Comment on above: Performed By: #### C BC #### [facility] [address] [place] [address] Dr. Bakari Sullivan EO # 0.1 103/ul Normal 0.0-0.7 [facility] Comment on above: Performed By: #### C BC #### [facility] [address] [place] [address] Dr. Bakari Sullivan Eosinophils/100 WBC (Bld) 2.3 % Normal 0.9-7.0 [facility] Comment on above: Performed By: #### C BC #### [facility] [address] [place] [address] Dr. Bakari Sullivan Erythrocyte distribution width (RBC) [Ratio] 14.2 % Normal 11.0-15.0 [facility] Comment on above: Performed By: #### C BC #### [facility] [address] [place] [address] Dr. Bakari Sullivan Hematocrit (Bld) [Volume fraction] 45.2 % Normal 42.0-54.0 [facility] Comment on above: Performed By: #### C BC #### [facility] [address] [place] [address] Dr. Bakari Sullivan Hemoglobin (Bld) [Mass/Vol] 15.0 g/dL Normal 14.0-18.0 [facility] Comment on above: Performed By: #### C BC #### [facility] [address] [place] [address] Dr. Bakari Sullivan IG # 0.03 10e3/ul Normal 0.00-0.03 [facility] Comment on above: Performed By: #### C BC #### [facility] [address] [place] [address] Dr. Bakari Sullivan IG % 0.5 % Normal 0.0-0.5 [facility] Comment on above: Performed By: #### C BC #### [facility] [address] [place] [address] Dr. Bakari Sullivan LYMPH # 2.0 103/ul Normal 1.2-3.8 [facility] Comment on above: Performed By: #### C BC #### [facility] [address] [place] [address] Dr. Bakari Sullivan Lymphocytes/100 WBC (Bld) 31.6 % Normal 20.5-60.0 [facility] Comment on above: Performed By: #### C BC #### [facility] [address] [place] [address] Dr. Bakari Sullivan MANUAL DIFF REQ NO Normal [facility] Comment on above: Performed By: #### C BC #### [facility] [address] [place] [address] Dr. Bakari Sullivan MCH (RBC) [Entitic mass] 26.6 pg Normal 25.9-34.0 [facility] Comment on above: Performed By: #### C BC #### [facility] [address] [place] [address] Dr. Bakari Sullivan MCHC (RBC) [Mass/Vol] 33.2 g/dL Normal 29.9-35.2 [facility] Comment on above: Performed By: #### C BC #### [facility] [address] [place] [address] Dr. Bakari Sullivan MCV (RBC) [Entitic vol] 80.1 fL Normal 80.0-94.0 [facility] Comment on above: Performed By: #### C BC #### [facility] [address] [place] [address] Dr. Bakari Sullivan MONO # 0.5 103/ul Normal 0.3-0.8 [facility] Comment on above: Performed By: #### C BC #### [facility] [address] [place] [address] Dr. Bakari Sullivan Monocytes/100 WBC (Bld) 8.7 % Normal 1.7-12.0 [facility] Comment on above: Performed By: #### C BC #### [facility] [address] [place] [address] Dr. Bakari Sullivan NEUT # 3.5 103/ul Normal 1.4-6.5 [facility] Comment on above: Performed By: #### C BC #### [facility] [address] [place] [address] Dr. Bakari Sullivan Neutrophils/100 WBC (Bld) 56.1 % Normal 43.0-75.0 [facility] Comment on above: Performed By: #### C BC #### [facility] [address] [place] [address] Dr. Bakari Sullivan Platelet mean volume (Bld) [Entitic vol] 9.8 fL Normal 9.5-13.5 [facility] Comment on above: Performed By: #### C BC #### [facility] [address] [place] [address] Dr. Bakari Sullivan PLT 214 103/ul Normal 150-450 [facility] Comment on above: Performed By: #### C BC #### [facility] [address] [place] [address] Dr. Bakari Sullivan RBC 5.64 106/ul Normal 4.70-6.10 [facility] Comment on above: Performed By: #### C BC #### [facility] [address] [place] [address] Dr. Bakari Sullivan WBC 6.2 103/ul Normal 4.0-11.0 [facility] Comment on above: Performed By: #### C BC #### [facility] [address] [place] [address] Dr. Bakari Sullivan GLYCOHEMOGLOBIN A1Con 2022 ADA RECOMMENDATION SEE BELOW Normal [facility] Comment on above: Result Comment: ADA RECOMMENDED LIMIT 4.0 - 6.0 ADA THERAPEUTIC TARGET < 7.0 ACTION SUGGESTED > 7.0 Performed By: #### A 1C #### [facility] [address] [place] [address] Dr. Bakari Sullivan Glucose [Mass/Vol] 183 mg/dL Normal [facility] Comment on above: Performed By: #### A 1C #### [facility] [address] [place] [address] Dr. Bakari Sullivan HbA1c (Bld) [Mass fraction] 8.0 % Critically high 4.5-6.2 [facility] Comment on above: Performed By: #### A 1C #### [facility] [address] [place] [address] Dr. Bakari Sullivan LIPID PROFILEon 03-18-2023 CHOL-HDL RATIO NORM SEE BELOW Normal [facility] Comment on above: Result Comment: 3.3 - 4.4 LOW RISK 4.4 - 7.1 AVERAGE RISK 7.1 - 11.0 MODERATE RISK >11.0 HIGH RISK Performed By: #### C BC #### [facility] [address] [place] [address] Dr. Bakari Sullivan Cholesterol [Mass/Vol] 128 mg/dL Normal <=200 [facility] Comment on above: Performed By: #### C BC #### [facility] [address] [place] [address] Dr. Bakari Sullivan Cholesterol in HDL [Mass/Vol] 53 mg/dL Normal 40-60 [facility] Comment on above: Performed By: #### C BC #### [facility] [address] [place] [address] Dr. Bakari Sullivan Cholesterol in LDL [Mass/Vol] 61.4 mg/dL Normal [facility] Comment on above: Performed By: #### C BC #### [facility] [address] [address] [address] Bakari Sullivan Cholesterol.total/Ch olesterol in HDL [Mass ratio] 2.4 {ratio} Normal [facility] Comment on above: Performed By: #### C BC #### [facility] [address] [place] [address] Dr. Bakari Sullivan HDL NORMAL > or = 60 mg/dl - LOW CARDIOVASCULAR RISK <40 mg/dl - HIGH CARDIOVASCULAR RISK Normal [facility] Comment on above: Performed By: #### C BC #### [facility] [address] [address] [address] Bakari Sullivan LDL CALC NORMAL SEE BELOW Normal [facility] Comment on above: Result Comment: <100 mg/dl OPTIMAL 100 - 129 mg/dl NEAR OR ABOVE OPTIMAL 130 - 159 mg/dl BORDERLINE HIGH 160 - 189 mg/dl HIGH >190 mg/dl VERY HIGH Performed By: #### C BC #### [facility] [address] [place] [address] Dr. Bakari Sullivan Triglyceride [Mass/Vol] 68 mg/dL Normal <=150 [facility] Comment on above: Performed By: #### C BC #### [facility] [address] [place] [address] Dr. Bakari Sullivan VLDL CALC 13.6 mg/dL Normal [facility] Comment on above: Performed By: #### C BC #### [facility] [address] [place] [address] Dr. Bakari Sullivan LIVER PROFILEon 03-18-2023 Albumin [Mass/Vol] 3.5 g/dL Normal 3.4-5.0 [facility] Comment on above: Performed By: #### C BC #### [facility] [address] [place] [address] Dr. Bakari Sullivan Albumin/Globulin [Mass ratio] 0.9 {ratio} Normal [facility] Comment on above: Performed By: #### C BC #### [facility] [address] [place] [address] Dr. Bakari Sullivan ALP [Catalytic activity/Vol] 65 U/L Normal 46-116 [facility] Comment on above: Performed By: #### C BC #### [facility] [address] [place] [address] Dr. Bakari Sullivan ALT [Catalytic activity/Vol] 26 U/L Normal 16-63 [facility] Comment on above: Performed By: #### C BC #### [facility] [address] [address] [address] Bakari Sullivan AST [Catalytic activity/Vol] 17 U/L Normal 15-37 [facility] Comment on above: Performed By: #### C BC #### [facility] [address] [address] [address] Bakari Sullivan BILI, CONJUGATED 0.2 mg/dL Normal 0.0-0.[address] [facility] Comment on above: Performed By: #### C BC #### [facility] [address] [address] [address] Bakari Sullivan Bilirubin [Mass/Vol] 1.1 mg/dL Critically high 0.2-1.0 [facility] Comment on above: Performed By: #### C BC #### [facility] [address] [address] [address] Bakari Sullivan Globulin (S) [Mass/Vol] 3.8 g/dL Normal [facility] Comment on above: Performed By: #### C BC #### [facility] [address] [address] [address] Bakari Sullivan Protein [Mass/Vol] 7.3 g/dL Normal 6.4-8.2 [facility] Comment on above: Performed By: #### C BC #### [facility] [address] [address] [address] Bakari Sullivan PROF CHEM 8 (BAS METB)on Anion gap [Moles/Vol] 8.4 mmol/L Normal [facility] Comment on above: Performed By: #### C BC #### [facility] [address] [address] [address] Bakari Sullivan Calcium [Mass/Vol] 9.1 mg/dL Normal 8.5-10.1 [facility] Comment on above: Performed By: #### C BC #### [facility] [address] [place] [address] Dr. Bakari Sullivan Chloride [Moles/Vol] 103 mmol/L Normal 98-107 [facility] Comment on above: Performed By: #### C BC #### [facility] [address] [place] [address] Dr. Bakari Sullivan CO2 [Moles/Vol] 28.8 mmol/L Normal 21.0-32.[address] [facility] Comment on above: Performed By: #### C BC #### [facility] [address] [place] [address] Dr. Bakari Sullivan Creatinine [Mass/Vol] 0.95 mg/dL Normal 0.70-1.30 [facility] Comment on above: Performed By: #### C BC #### [facility] [address] [place] [address] Dr. Bakari Sullivan EGFR-AF DANISH >60 Normal >=[address] [facility] Comment on above: Performed By: #### C BC #### [facility] [address] [place] [address] Dr. Bakari Sullivan EGFR-NON AF DANISH >60 Normal >=60 [facility] Comment on above: Performed By: #### C BC #### [facility] [address] [place] [address] Dr. Bakari Sullivan Glucose [Mass/Vol] 230 mg/dL Critically high 74-106 [facility] Comment on above: Performed By: #### C BC #### [facility] [address] [place] [address] Dr. Bakari Sullivan Potassium [Moles/Vol] 4.2 mmol/L Normal 3.5-5.1 [facility] Comment on above: Performed By: #### C BC #### [facility] [address] [place] [address] Dr. Bakari Sullivan Sodium [Moles/Vol] 136 mmol/L Normal 136-145 [facility] Comment on above: Performed By: #### C BC #### [facility] [address] [address] [address] Bakari Sullivan Urea nitrogen [Mass/Vol] 16.0 mg/dL Normal 7.0-18.0 [facility] Comment on above: Performed By: #### C BC #### [facility] [address] [address] [address] Bakari Sullivan Urea nitrogen/Creatinine [Mass ratio] 16.8 mg/mg Normal [facility] Comment on above: Performed By: #### C BC #### [facility] [address] [address] [address] Bakari Sullivan TSHon 03-18-2023 TSH 2.528 uIU/mL Normal 0.358-3.740 [facility] Comment on above: Performed By: #### C BC #### [facility] [address] [place] [address] Dr. Bakari Sullivan MICROALBUMIN URINEon 022 Albumin, Urine <3.0 Normal Not Estab. [facility] Comment on above: Result Comment: Ve rified by repeat analysis Performed By: #### M ALBLC #### [facility] [address] [place] [address] Dr. Bakari Sullivan TESTOSTERONE, TOTALon 2021 Testosterone [Mass/Vol] 215 ng/dL Critically low 264-916 [facility] Comment on above: Result Comment: Adul t male reference interval is based on a population of healthy nonobese males (BMI <30) between 19 and 39 years old. Keyona et.al. JCEM 2017,102;4798-6407. PMID: [id number]. Performed By: #### T ESTTOT #### [facility] [address] [place] [address] Dr. Bakari Sullivan VIT D 25-OH LABCORPon 2021 Vitamin D, 25-Hydroxy 36.7 ng/mL Normal 30.0-100.0 [facility] Comment on above: Result Comment: Concepcion min D deficiency has been defined by the [place] [employer] and an Endocrine Society practice guideline as a level of serum 25-OH vitamin D less than 20 ng/mL (1,2). The Endocrine Society went on to further define vitamin D insufficiency as a level between 21 and 29 ng/mL (2). 1. IOM ([place] [employer]). 2010. Dietary reference intakes for calcium and D. [place]: The National Academies Press. 2. Janet MF, Nancy NC, [place] LERMA, et al. Evaluation, treatment, and prevention of vitamin D deficiency: an Endocrine Society clinical practice guideline. JCEM. 2010; 96(7):1911-30. Performed By: #### V ITADLC #### [facility] [address] [place] [address] Dr. Bakari Sullivan CBC AUTO DIFFon 07-12-2022 BASO # 0.1 103/ul Normal 0.0-0.1 [facility] Comment on above: Performed By: #### C BC #### [facility] [address] [place] [address] Dr. Bakari Sullivan Basophils/100 WBC (Bld) 0.9 % Normal 0.2-2.0 [facility] Comment on above: Performed By: #### C BC #### [facility] [facility] [address] [place] [address] Dr. Bakari Sullivan EO # 0.1 103/ul Normal 0.0-0.7 [facility] Comment on above: Performed By: #### C BC #### [facility] [address] [place] [address] Dr. Bakari Sullivan Eosinophils/100 WBC (Bld) 1.6 % Normal 0.9-7.0 [facility] Comment on above: Performed By: #### C BC #### [facility] [address] [place] [address] Dr. Bakari Sullivan Erythrocyte distribution width (RBC) [Ratio] 14.5 % Normal 11.0-15.0 [facility] Comment on above: Performed By: #### C BC #### [facility] [address] [place] [address] Dr. Bakari Sullivan Hematocrit (Bld) [Volume fraction] 47.5 % Normal 42.0-54.0 [facility] Comment on above: Performed By: #### C BC #### [facility] [address] [address] [address] Bakari Sullivan Hemoglobin (Bld) [Mass/Vol] 15.8 g/dL Normal 14.0-18.0 [facility] Comment on above: Performed By: #### C BC #### [facility] [address] [address] [address] Bakari Sullivan IG # 0.02 10e3/ul Normal 0.00-0.03 [facility] Comment on above: Performed By: #### C BC #### [facility] [address] [place] [address] Dr. Bakari Sullivan IG % 0.3 % Normal 0.0-0.5 [facility] Comment on above: Performed By: #### C BC #### [facility] [address] [place] [address] Dr. Bakari Sullivan LYMPH # 1.9 103/ul Normal 1.2-3.8 [facility] Comment on above: Performed By: #### C BC #### [facility] [address] [place] [address] Dr. Bakari Sullivan Lymphocytes/100 WBC (Bld) 27.9 % Normal 20.5-60.0 [facility] Comment on above: Performed By: #### C BC #### [facility] [address] [place] [address] Dr. Bakari Sullivan MANUAL DIFF REQ NO Normal [facility] Comment on above: Performed By: #### C BC #### [facility] [address] [place] [address] Dr. Bakari Sullivan MCH (RBC) [Entitic mass] 27.1 pg Normal 25.9-34.0 [facility] Comment on above: Performed By: #### C BC #### [facility] [address] [place] [address] Dr. Bakari Sullivan MCHC (RBC) [Mass/Vol] 33.3 g/dL Normal 29.9-35.2 [facility] Comment on above: Performed By: #### C BC #### [facility] [address] [address] [address] Bakari Sullivan MCV (RBC) [Entitic vol] 81.5 fL Normal 80.0-94.0 [facility] Comment on above: Performed By: #### C BC #### [facility] [address] [address] [address] Bakari Sullivan MONO # 0.6 103/ul Normal 0.3-0.8 The [facility] Comment on above: Performed By: #### C BC #### [facility] [address] [address] [address] Bakari Sullivan Monocytes/100 WBC (Bld) 8.4 % Normal 1.7-12.0 [facility] Comment on above: Performed By: #### C BC #### [facility] [address] [place] [address] Dr. Bakari Sullivan NEUT # 4.2 103/ul Normal 1.4-6.5 [facility] Comment on above: Performed By: #### C BC #### [facility] [address] [place] [address] Dr. Bakari Sullivan Neutrophils/100 WBC (Bld) 60.9 % Normal 43.0-75.0 [facility] Comment on above: Performed By: #### C BC #### [facility] [address] [place] [address] Dr. Bakari Sullivan Platelet mean volume (Bld) [Entitic vol] 10.3 fL Normal 9.5-13.5 The [facility] Comment on above: Performed By: #### C BC #### [facility] [address] [place] [address] Dr. Bakari Sullivan PLT 237 103/ul Normal 150-450 The [facility] Comment on above: Performed By: #### C BC #### [facility] [address] [place] [address] Dr. Bakari Sullivan RBC 5.83 106/ul Normal 4.70-6.10 The [facility] Comment on above: Performed By: #### C BC #### [facility] [address] [address] [address] Bakari Sullivan WBC 6.9 103/ul Normal 4.0-11.0 [facility] Comment on above: Performed By: #### C BC #### [facility] [address] [address] [address] Bakari Sullivan GLYCOHEMOGLOBIN A1Con 2021 ADA RECOMMENDATION SEE BELOW Normal [facility] Comment on above: Result Comment: ADA RECOMMENDED LIMIT 4.0 - 6.0 ADA THERAPEUTIC TARGET < 7.0 ACTION SUGGESTED > 7.0 Performed By: #### C BC #### [facility] [address] [address] [address] Bakari Sullivan Glucose [Mass/Vol] 143 mg/dL Normal [facility] Comment on above: Performed By: #### C BC #### [facility] [address] [place] [address] Dr. Bakari Sullivan HbA1c (Bld) [Mass fraction] 6.6 % Critically high 4.5-6.2 [facility] Comment on above: Performed By: #### C BC #### [facility] [address] [place] [address] Dr. Bakari Sullivan LIPID PROFILEon 07-12-2022 CHOL-HDL RATIO NORM SEE BELOW Normal [facility] Comment on above: Result Comment: 3.3 - 4.4 LOW RISK 4.4 - 7.1 AVERAGE RISK 7.1 - 11.0 MODERATE RISK >11.0 HIGH RISK Performed By: #### T SH, LIPID, LIVER, BMP #### [facility] [address] [place] [address] Dr. Bakari Sullivan Cholesterol [Mass/Vol] 140 mg/dL Normal <=200 [facility] Comment on above: Performed By: #### T SH, LIPID, LIVER, BMP #### [facility] [address] [address] [address] Bakari Sullivan Cholesterol in HDL [Mass/Vol] 55 mg/dL Normal 40-60 [facility] Comment on above: Performed By: #### T SH, LIPID, LIVER, BMP #### [facility] [address] [address] [address] Bakari Sullivan Cholesterol in LDL [Mass/Vol] 63.8 mg/dL Normal [facility] Comment on above: Performed By: #### T SH, LIPID, LIVER, BMP #### [facility] [address] [place] [address] Dr. Bakari Sullivan Cholesterol.total/Ch olesterol in HDL [Mass ratio] 2.5 {ratio} Normal [facility] Comment on above: Performed By: #### T SH, LIPID, LIVER, BMP #### [facility] [address] [place] [address] Dr. Bakari Sullivan HDL NORMAL > or = 60 mg/dl - LOW CARDIOVASCULAR RISK <40 mg/dl - HIGH CARDIOVASCULAR RISK Normal [facility] Comment on above: Performed By: #### T YASMIN, LIPID, LIVER, BMP #### [facility] [address] [place] [address] Dr. Bakari Sullivan LDL CALC NORMAL SEE BELOW Normal [facility] Comment on above: Result Comment: <100 mg/dl OPTIMAL 100 - 129 mg/dl NEAR OR ABOVE OPTIMAL 130 - 159 mg/dl BORDERLINE HIGH 160 - 189 mg/dl HIGH >190 mg/dl VERY HIGH Performed By: #### T YASMIN, LIPID, LIVER, BMP #### [facility] [address] [place] [address] Dr. Bakari Sullivan Triglyceride [Mass/Vol] 106 mg/dL Normal <=150 [facility] Comment on above: Performed By: #### T YASMIN, LIPID, LIVER, BMP #### [facility] [address] [place] [address] Dr. Bakari Sullivan VLDL CALC 21.2 mg/dL Normal [facility] Comment on above: Performed By: #### T SH, LIPID, LIVER, BMP #### [facility] [address] [place] [address] Dr. Bakari Sullivan LIVER PROFILEon 07-12-2022 Albumin [Mass/Vol] 4.1 g/dL Normal 3.4-5.0 [facility] Comment on above: Performed By: #### T SH, LIPID, LIVER, BMP #### [facility] [address] [address] [address] Bakari Sullivan Albumin/Globulin [Mass ratio] 1.1 {ratio} Normal [facility] Comment on above: Performed By: #### T SH, LIPID, LIVER, BMP #### [facility] [address] [address] [address] Bakari Sullivan ALP [Catalytic activity/Vol] 73 U/L Normal 46-116 [facility] Comment on above: Performed By: #### T SH, LIPID, LIVER, BMP #### [facility] [address] [place] [address] Dr. Bakari Sullivan ALT [Catalytic activity/Vol] 21 U/L Normal 16-63 [facility] Comment on above: Performed By: #### T SH, LIPID, LIVER, BMP #### [facility] [address] [place] [address] Dr. Bakari Sullivan AST [Catalytic activity/Vol] 17 U/L Normal 15-37 [facility] Comment on above: Performed By: #### T SH, LIPID, LIVER, BMP #### [facility] [address] [place] [address] Dr. Bakari Sullivan BILI, CONJUGATED 0.3 mg/dL Critically high 0.0-0.2 [facility] Comment on above: Performed By: #### T SH, LIPID, LIVER, BMP #### [facility] [address] [place] [address] Dr. Bakari Sullivan Bilirubin [Mass/Vol] 1.6 mg/dL Critically high 0.2-1.0 [facility] Comment on above: Performed By: #### T SH, LIPID, LIVER, BMP #### [facility] [address] [place] [address] Dr. Bakari Sullivan Globulin (S) [Mass/Vol] 3.8 g/dL Normal [facility] Comment on above: Performed By: #### T SH, LIPID, LIVER, BMP #### [facility] [address] [place] [address] Dr. Bakari Sullivan Protein [Mass/Vol] 7.9 g/dL Normal 6.4-8.2 [facility] Comment on above: Performed By: #### T SH, LIPID, LIVER, BMP #### [facility] [address] [address] [address] Bakari Sullivan PROF CHEM 8 (BAS METB)on Anion gap [Moles/Vol] 13.0 mmol/L Normal [facility] Comment on above: Performed By: #### T SH, LIPID, LIVER, BMP #### [facility] [address] [place] [address] Dr. Bakari Sullivan Calcium [Mass/Vol] 9.3 mg/dL Normal 8.5-10.1 [facility] Comment on above: Performed By: #### T SH, LIPID, LIVER, BMP #### [facility] [address] [place] [address] Dr. Bakari Sullivan Chloride [Moles/Vol] 101 mmol/L Normal 98-107 The [facility] Comment on above: Performed By: #### T SH, LIPID, LIVER, BMP #### [facility] [address] [place] [address] Dr. Bakari Sullivan CO2 [Moles/Vol] 28.3 mmol/L Normal 21.0-32.0 [facility] Comment on above: Performed By: #### T SH, LIPID, LIVER, BMP #### [facility] [address] [place] [address] Dr. Bakari Sullivan Creatinine [Mass/Vol] 0.87 mg/dL Normal 0.70-1.30 The [facility] Comment on above: Performed By: #### T SH, LIPID, LIVER, BMP #### [facility] [address] [place] [address] Dr. Bakari Sullivan EGFR-AF DANISH >60 Normal >=60 [facility] Comment on above: Performed By: #### T SH, LIPID, LIVER, BMP #### [facility] [address] [place] [address] Dr. Bakari Sullivan EGFR-NON AF DANISH >60 Normal >=60 The [facility] Comment on above: Performed By: #### T SH, LIPID, LIVER, BMP #### [facility] [address] [address] [address] Bakari Sullivan Glucose [Mass/Vol] 133 mg/dL Critically high 74-106 [facility] Comment on above: Performed By: #### T SH, LIPID, LIVER, BMP #### [facility] [address] [address] [address] Bakari Sullivan Potassium [Moles/Vol] 4.3 mmol/L Normal 3.5-5.1 [facility] Comment on above: Performed By: #### T SH, LIPID, LIVER, BMP #### [facility] [address] [address] [address] Bakari Sullivan Sodium [Moles/Vol] 138 mmol/L Normal 136-145 [facility] Comment on above: Performed By: #### T SH, LIPID, LIVER, BMP #### [facility] [address] [place] [address] Dr. Bakari Sullivan Urea nitrogen [Mass/Vol] 16.0 mg/dL Normal 7.0-18.0 [facility] Comment on above: Performed By: #### T SH, LIPID, LIVER, BMP #### [facility] [address] [address] [address] Bakari Sullivan Urea nitrogen/Creatinine [Mass ratio] 18.4 mg/mg Normal [facility] Comment on above: Performed By: #### T SH, LIPID, LIVER, BMP #### [facility] [address] [address] [address] Bakari Sullivan TSHon 07-12-2022 TSH 2.381 uIU/mL Normal 0.358-3.740 [facility] Comment on above: Performed By: #### T SH, LIPID, LIVER, BMP #### [facility] [address] [address] [address] Bakari Sullivan Vital Signs Date Time Vital Sign Value Performing Clinician Facility 10-23-2024 09:18-0500 Body height 175.3 cm Willy Lobato MD Work Phone: [facility] 10-23-2024 09:18-0500 Body mass index (BMI) [Ratio] 34.7 kg/m2 Willy Lobato MD Work Phone: [facility] 10-23-2024 09:18-0500 Body temperature 97.11 [degF] Willy Lobato MD Work Phone: [facility] 10-23-2024 09:18-0500 Body weight 106.59 kg Willy Lobato MD Work Phone: [facility] 10-23-2024 09:18-0500 Diastolic blood pressure 66 mm[Hg] Willy Lobato MD Work Phone: [facility] 10-23-2024 09:18-0500 Heart rate 75 /min Willy Lobato MD Work Phone: [facility] 10-23-2024 09:18-0500 Respiratory rate 18 /min Willy Lobato MD Work Phone: [facility] 10-23-2024 09:18-0500 SaO2% (BldA) [Mass fraction] 99 % Willy Lobato MD Work Phone: [facility] 10-23-2024 09:18-0500 Systolic blood pressure 116 mm[Hg] Willy Lobato MD Work Phone: [facility] 07-19-2024 10:18-0400 Body height 175.3 cm Willy Lobato MD Work Phone: [facility] 07-19-2024 10:18-0400 Body mass index (BMI) [Ratio] 35.59 kg/m2 Willy Lobato MD Work Phone: [facility] 07-19-2024 10:18-0400 Body temperature 97.11 [degF] Willy Lobato MD Work Phone: [facility] 07-19-2024 10:18-0400 Body weight 109.32 kg Willy Lobato MD Work Phone: [facility] 07-19-2024 10:18-0400 Diastolic blood pressure 66 mm[Hg] Willy Lobato MD Work Phone: [facility] 07-19-2024 10:18-0400 Heart rate 85 /min Willy Lobato MD Work Phone: [facility] 07-19-2024 10:18-0400 Respiratory rate 18 /min Willy Lobato MD Work Phone: [facility] 07-19-2024 10:18-0400 SaO2% (BldA) [Mass fraction] 98 % Willy Lobato MD Work Phone: [facility] 07-19-2024 10:18-0400 Systolic blood pressure 132 mm[Hg] Willy Lobato MD Work Phone: [facility] 07-29-2023 11:55-0400 Body height 175.26 cm Gema Kianna Other [employer] Other 07-29-2023 11:55-0400 Body mass index (BMI) [Ratio] 35.44 kg/m2 Gema Kianna Other [employer] Other 07-29-2023 11:55-0400 Body temperature 98.1 [degF] Gema Kianna Other [employer] Other 07-29-2023 11:55-0400 Body weight 108.86 kg Gema Kianna Other [employer] Other 07-29-2023 11:55-0400 Diastolic blood pressure 80 mm[Hg] Gema Kianna Other [employer] Other 07-29-2023 11:55-0400 Respiratory rate 18 /min Gema Kianna Other [employer] Other 07-29-2023 11:55-0400 SaO2% (BldA) [Mass fraction] 98 % Gema Hutchison Other [employer] Other 07-29-2023 11:55-0400 Systolic blood pressure 133 mm[Hg] Gema Hutchison Other [employer] Other Encounters Encounter Date Encounter Type Care Provider Facility Start: 10-23-2024 End: 10-23-2024 [employer] Willy Lobato MD Work Phone: [facility] Start: 10-23-2024 End: 10-23-2024 [employer] Willy Lobato MD Work Phone: [facility] Start: 10-23-2024 End: 10-23-2024 Office outpatient visit 25 minutes Willy Lobato MD Work Phone: [facility] Comment on above: Type 2 diabetes helena itus with hyperglycemia, without long-term current use of insulin (CMS/HCC) (Primary Dx); Benign hypertension (CMS/HCC); Chronic right shoulder pain; Class 1 obesity due to excess calories with serious comorbidity and body mass index (BMI) of 34.0 to 34.9 in adult; Colon cancer screening Start: 10-23-2024 End: 10-23-2024 ambulatory WILLY LOBATO Not Available Start: 07-19-2024 End: 07-19-2024 [employer] Willy Lobato MD Work Phone: [facility] Start: 07-19-2024 End: 07-19-2024 [employer] Willy Lobato MD Work Phone: [facility] Start: 07-19-2024 End: 07-19-2024 Office outpatient visit 25 minutes Willy Lobato MD Work Phone: [facility] Comment on above: Type 2 diabetes helena itus with hyperglycemia, without long-term current use of insulin (CMS/HCC) (Primary Dx); Benign hypertension (CMS/HCC); Obesity (BMI 30-39.9); Body mass index (BMI) 36.0-36.9, adult Start: 07-19-2024 End: 07-19-2024 ambulatory WILLY LOBATO Not Available Start: 04-17-2024 End: 04-17-2024 ambulatory WILLY LOBATO Not Available Start: 10-26-2023 Patient encounter procedure Willy Lobato MD Work Phone: [facility] Start: 07-29-2023 End: 07-29-2023 ambulatory Gema Hutchison Other [employer] Other Start: 07-29-2023 Office outpatient vi sit 15 minutes Gema Hutchison [facility] Start: 03-23-2023 Encounter for genera l adult medical examination without abnormal findings DR WILLY LOBATO [facility] Start: 03-18-2023 End: 03-19-[address] WILLY LOBATO Facility:[facility] Start: 03-18-2023 End: 03-19-2023 Encounter for general adult medical examination without abnormal findings DR WILLY LOBATO Facility:[facility] Start: 07-12-2022 End: 07-13-[address] WILLY LOBATO Facility:[facility] Procedures Date Procedure Procedure Detail Performing Clinician Start: 07-12-[address] WILLY ROMO Comment on above: Performed By: #### C BC #### [facility] [address] [place] [address] Dr. Bakari Sullivan Plan of Treatment Date Care Activity Detail Author Start: 06-19-2025 Glaucoma screening Diabetes: R etinopathy Screening [facility] Start: 04-22-2025 End: 04-22-2025 Patient encounter procedure 04/22/2025 9:15 AM EDT Office Visit [facility] [address] [place] [id number] Willy Lobato MD [address] [place] [phone] [facility] Start: 11-15-2024 Hemoglobin A1c measurement Diabetes: Hemoglobin A1C [facility] Start: 11-08-2024 Urine screening for protein Diabetes: Urine Protein Screening [facility] Start: 10-23-2024 End: 10-23-2025 Hemoglobin A1c/Hemoglobin.total in Blood Hemoglobin A1c Lab Routine Type 2 diabetes mellitus with hyperglycemia, without long-term current use of insulin ([facility]) Expected: 10/23/2024 (Approximate), Expires: 10/23/2025 [facility] Work Phone: Comment on above: Expected: 10/23/2024 (Approximate), Expires: 10/23/2025 Start: 10-23-2024 End: 10-23-2025 Noninvasive colorectal cancer DNA and occult blood screening [Presence] in Stool Cologuard colon cancer screening Lab Routine Colon cancer screening Expected: 10/23/2024 (Approximate), Expires: 10/23/2025 [facility] Comment on above: Expected: 10/23/2024 (Approximate), Expires: 10/23/2025 Start: 10-23-2024 End: 10-23-2024 Patient encounter procedure [facility] Comment on above: Arrived Start: 07-28-2024 Screening for malign ant neoplasm of colon [facility] Start: 07-19-2024 End: 07-19-2024 Patient encounter procedure 07/19/2024 10:15 AM EDT Office Visit [facility] [address] [place] [address] Willy Lobato MD [address] [place] [address] Arrived [facility] Comment on above: Arrived Start: 07-14-2024 Influenza vaccination Influenza Vacc ine (#1) [facility] Start: 10-06-2018 Hemoglobin A1c measurement Diabetes: Hemoglobin A1C [facility] Start: 1979 Glaucoma screening Diabetes: R etinopathy Screening [facility] Start: 1969 Screening for malign ant neoplasm of colon [facility] Payers Date Payer Category Payer [facility] [id number] 2023 Unknown BCBS BCBS [id number] [id number] 2023-Present [phone] [address] [place] [address] [id number] 1969 Unknown [id number] 1969 Unknown [id number] 1969 Unknown [id number] 1969 Unknown [id number] 1969 Unknown [id number] 1959 Unknown [id number] Social History Date Type Detail Facility Unknown if ever smoked [employer] Other Start: 04-16-2024 End: 04-17-2024 Sex Assigned At [facility] Start: 11-20-2023 Tobacco smoking status NHIS Ex-smoker [facility] History of tobacco use Current smoker [facility] History of tobacco use Cigarette Smoker [facility] Start: 11-20-2023 Tobacco use and exposure Smokeless tobacco non-user [facility] Start: 04-17-2024 End: 07-19-2024 Alcoholic beverage intake Current drinker of alcohol (finding) [facility] Start: 04-16-2024 End: 04-17-2024 History of Social function [facility] Do you belong to any clubs or organizations such as muslim groups, unions, fraternal or athletic groups, or school groups? No [facility] Are you now , , , , never or living with a partner? [facility] How often to you hav e a drink containing alcohol? Never [facility] How many standard dr inks containing alcohol do you have on a typical day? Patient does not drink [facility] How hard is it for y ou to pay for the very basics like food, housing, medical care, and heating Not very hard [facility] Do you feel stress - tense, restless, nervous, or anxious, or unable to sleep at night because your mind is troubled all the time - these days [OSQ] Rather much [facility] (I/We) worried wheroel er (my/our) food would run out before (I/we) got money to buy more. Never true [facility] Start: 11-20-2023 Alcohol Comment caffeine intake : 1-2 cups per day [facility] Start: 1970 Sex assigned at Male [facility] Start: 10-22-2023 Gender identity Identifies as male gender (finding) [facility] Start: 10-22-2023 Sexual orientation Heterosexual (finding) [facility] History of Present illness Narrative 10-23-2024 Willy Lobato MD - 10/23/2024 10:13 AM Miguel Lobato MD - 10/23/2024 10:13 AM Miguel Lobato MD - 10/23/2024 10:12 AM Miguel Lobato MD - 10/23/2024 10:12 AM EST Note Date & Type Note Facility 10-23-2024 History of Presen t illness Narrative Associated Problem(s): Type 2 diabetes mellitus with hyperglycemia, without long-term current use of insulin ([facility]) BS controlled and due for A1C. Stick to ADA diet and limit carbs. Associated Problem(s): Class 1 obesity due to excess calories with serious comorbidity and body mass index (BMI) of 34.0 to 34.9 in adult Weight down 11 pounds. Associated Problem(s): Chronic right shoulder pain Pain for months and likely muscular. Follow with chiropractor. Associated Problem(s): Benign hypertension (CMS/HCC) BP controlled and monitor PRN. Images from the original note were not included. Subjective Patient ID: Francisco Britton is a 54 y.o. male who presents for Follow-up (3 m) and Shoulder Pain (Right shoulder). Follow up DM, HTN, and weight. BS improved with increased ozempic and 87-280. BS typically around 120-150. Tries to eat well and stick to ADA diet. Denies signs of elevated BS such as polyuria, polyphagia or polydipsia. Checking BP PRN and typically controlled. BP normal today. Taking medication daily and tolerating without side effects. C/o pain in right shoulder for months. No fall, injury or trauma. Pain in top shoulder and up towards neck. Full ROM but pain to raise arm. Starting to avoid using arm due to pain and mild weakness. Scheduled with chiropractor later today. Weight down 6 pounds since last visit. Tries to walk and stay active. Tries to watch diet and eat healthy. Increased fruits and vegetables. Smaller portions and limits snacking. Tries to limit total daily calories. Review of Systems Constitutional: Negative for fatigue. Respiratory: Negative for cough, shortness of breath and wheezing. Cardiovascular: Negative for chest pain and palpitations. Gastrointestinal: Negative for abdominal pain, diarrhea, nausea and vomiting. Genitourinary: Negative for dysuria. Objective Physical Exam Constitutional: General: He is not in acute distress. Appearance: Normal appearance. HENT: Head: Normocephalic. Right Ear: Tympanic membrane and ear canal normal. Left Ear: Tympanic membrane and ear canal normal. Eyes: Extraocular Movements: Extraocular movements intact. Pupils: Pupils are equal, round, and reactive to light. Cardiovascular: Rate and Rhythm: Normal rate and regular rhythm. Heart sounds: No murmur heard. No friction rub. No gallop. Pulmonary: Breath sounds: Normal breath sounds. No wheezing, rhonchi or rales. Abdominal: General: Bowel sounds are normal. There is no distension. Palpations: Abdomen is soft. Tenderness: There is no abdominal tenderness. There is no guarding or rebound. Musculoskeletal: Left lower leg: No edema. Neurological: Mental Status: He is alert. Assessment/Plan Problem List Items Addressed This Visit Benign hypertension (CMS/HCC) BP controlled and monitor PRN. Type 2 diabetes mellitus with hyperglycemia, without long-term current use of insulin ([facility]) - Primary BS controlled and due for A1C. Stick to ADA diet and limit carbs. Relevant Medications glipiZIDE (Glucotrol) 10 MG tablet Other Relevant Orders Hemoglobin A1c Class 1 obesity due to excess calories with serious comorbidity and body mass index (BMI) of 34.0 to 34.9 in adult Weight down 11 pounds. Chronic right shoulder pain Pain for months and likely muscular. Follow with chiropractor. Other Visit Diagnoses Colon cancer screening Relevant Orders Cologuard colon cancer screening documented in this encounter [facility] History of Present illness Narrative 07-19-2024 Willy Lobato MD - 07/19/2024 10:53 AM Mirta Lobato MD - 07/19/2024 10:52 AM Mirta Lobato MD - 07/19/2024 10:52 AM Mirta Lobato MD - 07/19/2024 10:15 AM EDT Note Date & Type Note Facility 07-19-2024 History of Presen t illness Narrative Associated Problem(s): Type 2 diabetes mellitus with hyperglycemia, without long-term current use of insulin ([facility]) BS improved and starting to go low. Decrease glipizide to once a day and take with food. Increase ozempic. Likely will be able to stop glipizide in future. Associated Problem(s): Obesity (BMI 30-39.9) Weight down 5 pounds. Associated Problem(s): Benign hypertension (CMS/HCC) BP controlled and monitor PRN. Images from the original note were not included. Subjective Patient ID: Francisco Britton is a 54 y.o. male who presents for Follow-up (3 m). Follow up DM, HTN, and weight. Patient feels well today. Started ozempic last visit and BS much improved. Now BS typically 120-130. Last A1C 7.3. Notice appetite decreased and not eating as much. Reports 2 occasions with low BS from not eating. Tries to stick to ADA diet and limit carbs. Denies signs of elevated BS such as polyuria, polyphagia or polydipsia. Weight down 5 pounds since last visit. Checking BP PRN and typically controlled. BP normal today. Taking medication daily and tolerating without side effects. Review of Systems Constitutional: Negative for fatigue. Respiratory: Negative for cough, shortness of breath and wheezing. Cardiovascular: Negative for chest pain and palpitations. Gastrointestinal: Negative for abdominal pain, diarrhea, nausea and vomiting. Genitourinary: Negative for dysuria. Objective Physical Exam Constitutional: General: He is not in acute distress. Appearance: Normal appearance. HENT: Head: Normocephalic. Right Ear: Tympanic membrane and ear canal normal. Left Ear: Tympanic membrane and ear canal normal. Eyes: Extraocular Movements: Extraocular movements intact. Pupils: Pupils are equal, round, and reactive to light. Cardiovascular: Rate and Rhythm: Normal rate and regular rhythm. Heart sounds: No murmur heard. No friction rub. No gallop. Pulmonary: Breath sounds: Normal breath sounds. No wheezing, rhonchi or rales. Abdominal: General: Bowel sounds are normal. There is no distension. Palpations: Abdomen is soft. Tenderness: There is no abdominal tenderness. There is no guarding or rebound. Musculoskeletal: Left lower leg: No edema. Neurological: Mental Status: He is alert. Assessment/Plan Problem List Items Addressed This Visit Benign hypertension (CMS/HCC) BP controlled and monitor PRN. Type 2 diabetes mellitus with hyperglycemia, without long-term current use of insulin ([facility]) - Primary BS improved and starting to go low. Decrease glipizide to once a day and take with food. Increase ozempic. Likely will be able to stop glipizide in future. Relevant Medications glipiZIDE (Glucotrol) 10 MG tablet semaglutide (Ozempic, 1 MG/DOSE,) 4 MG/3ML solution pen-injector Obesity (BMI 30-39.9) Weight down 5 pounds. documented in this encounter [facility] Evaluation note 07-29-2023 Note Date & Type [...] no improvement in 2 to 3 days [employer] Other Evaluation note Note Date & Type Note Facility Evaluation note Diagnosis Type 2 diabetes mellitus with hyperglycemia, without long-term current use of insulin ([facility])- Primary Annual physical exam Routine general medical examination at a health care facility Benign hypertension (CMS/HCC) Essential hypertension, benign Type 2 diabetes mellitus with hyperglycemia, without long-term current use of insulin (CMS/HCC)- Primary Benign hypertension (CMS/HCC) Essential hypertension, benign Chronic right-sided thoracic back pain Annual physical exam Routine general medical examination at a health care facility Body mass index [BMI] 36.0-36.9, adult (Z68.36) Type 2 diabetes mellitus with hyperglycemia, without long-term current use of insulin (CMS/HCC)- Primary Benign hypertension (CMS/HCC) Essential hypertension, benign Obesity (BMI 30-39.9) Body mass index (BMI) 36.0-36.9, adult Type 2 diabetes mellitus with hyperglycemia, without long-term current use of insulin (CMS/HCC)- Primary Benign hypertension (CMS/HCC) Essential hypertension, benign Chronic right shoulder pain Pain in joint, shoulder region Class 1 obesity due to excess calories with serious comorbidity and body mass index (BMI) of 34.0 to 34.9 in adult Colon cancer screening Special screening for malignant neoplasms, colon documented in this encounter [facility] Evaluation note Note Date & Type Note Facility Evaluation note Diagnosis Type 2 diabetes mellitus with hyperglycemia, without long-term current use of insulin (CMS/HCC)- Primary Benign hypertension (CMS/HCC) Essential hypertension, benign Obesity (BMI 30-39.9) Body mass index (BMI) 36.0-36.9, adult documented in this encounter [facility] History general Narrative - Reported Note Date & Type Note Facility History general Narrative - Reported Type Medical History diabetes type II Medical History factor 8 bleeding disorder Medical History Hypercholesteremia Medical History HTN (hypertension) [employer] Other Summary Purpose Family History No Family History Records FoundNo Family History Records Found Advance Directives No Advanced Directives Records FoundNo Advanced Directives Records Found Additional Source Comments (unrecognized sect ion and content) No Status Records FoundNo Status Records Found INFORMATION SOURCE (unrecogn ized section and content) DATE CREATED AUTHOR 03/24/2023 Elenita Carlson [facility] DATE CREATED AUTHOR 'S ORGANIZ ATION 10/26/2024 [facility] EPIC REASON FOR VISIT (unrecogniz ed section and content) Reason Comments Follow-up 3 m Shoulder Pain Right shoulder Reason Comments Follow-up 3 m Care Teams (unrecognized sec tion and content) Community Service Technician Relationship Specialty Start Date End Date Willy Lobato MD [address] [place] [address] PCP - General Family Medicine 04/17/24 Willy Lobato MD [address] [place] [address] [facility] 08[facility]13/24 Community Service Technician Relationship Specialty Start Date End Date Willy Lobato MD [address] [place] [address] PCP - [facility] 04/17/24 Willy Lobato MD [address] [place] [address] PCP [facility] 08/13/24 Community Service Technician Relationship Specialty Start Date End Date Willy Lobato MD [address] [place] [address] PCP - [facility] 04/17/24 Community Service Technician Relationship Specialty Start Date End Date Willy Lobato MD [address] [place] [address] PCP - [facility] 04/17/24 FOR RECORDS PERTAINING TO PATIENTS WHO ARE [...] BE BASED ON THE PRIMARY CLINICAL RECORDS. [facility]. provides no warranty or guarantee of the accuracy or completeness of information in this document.
[2024-11-02 08:47] LABS: Estimated Average Glucose 114 mg/dL; Glycohemoglobin A1C 5.6 % (4.5-6.2)
== END 2024-11-02 08:25 | disposition home or self-care (01) ==
LOC: LAB 08:26
PROVIDERS: PCP Family Medicine; Visit Provider Family Medicine
DX: E11.65 Type 2 diabetes mellitus with hyperglycemia (principal)
CPT/HCPCS: 36415; 83036

== ENCOUNTER 2025-04-26 09:00 | Outpatient (OUT) | payer BC, SELFPAY ==
--- OUTSIDE RECORDS SUMMARY | 2025-04-26 09:03 | XMS_ITS | Encounter Summary ---
Author Organization [facility] Address [address] [place] [address] Care Team Providers Care Foreign Language Interpreter Name Role Phone Willy Gunderson MD Primary Care Provider [phone] Encounter Details Date Type Department Care Team (Late st Contact Info) Description 04/22/2025 Orders Only [facility] [address] [place] [address] Willy Gunderson MD [address] [place] [address] Social History Tobacco Use Types Packs/Day Years Used Date Smoking Tobacco: Former Cigarettes Smokeless Tobacco: Never Alcohol Use Standard Drinks/Week Comments Yes 1 (1 standard drink = 0.6 oz pure alcohol) caffeine intake : 1-2 cups per day Social Connection and Isolation Panel [NHANES] A nswer Date Recorded In a typical week, how many times do you talk on the phone with family, friends, or neighbors? Never 04/16/2024 How often do you get together with friends or re latives? Never 04/16/2024 How often do you attend judaism or anabaptist serv ices? Never 04/16/2024 Do you belong to any clubs o r organizations such as judaism groups, unions, fraternal or athletic groups, or school groups? No 04/16/2024 How often do you attend meet ings of the clubs or organizations you belong to? Never 04/16/2024 Are you , , di vorced, , never , or living with a partner? 04/16/2024 AUDIT-C Answer Date Recorded Q1: How often do you have a drink containing alcohol? Never 04/16/2024 Q2: How many drinks containi ng alcohol do you have on a typical day when you are drinking? Patient does not drink Q3: How often do you have si x or more drinks on one occasion? Never 04/16/2024 Overall Financial Resource Strain (CARDIA) Answe r Date Recorded How hard is it for you to pa y for the very basics like food, housing, medical care, and heating? Not very hard 04/16/2024 [facility] [place] of Occupat ional Health - Occupational Stress Questionnaire Answer Date Recorded Do you feel stress - tense, restless, nervous, or anxious, or unable to sleep at night because your mind is troubled all the time - these days? Rather much 04/16/2024 Exercise Vital Sign Answer Date Recorde d On average, how many days pe r week do you engage in moderate to strenuous exercise (like a brisk walk)? 5 days 04/16/2024 On average, how many minutes do you engage in exercise at this level? 120 min 04/16/2024 Hunger Vital Sign Answer Date Recorded Within the past 12 months, y ou worried that your food would run out before you got the money to buy more. Never true 04/16/20 24 Within the past 12 months, t he food you bought just didn't last and you didn't have money to get more. Never true 04/16/2024 PRAPARE - Transportation Answer Date Re corded In the past 12 months, has l ack of transportation kept you from medical appointments or from getting medications? No 02/2024 In the past 12 months, has l ack of transportation kept you from meetings, work, or from getting things needed for daily living? No 04/16/2024 Housing Stability Vital Sign Answer Heath e Recorded In the last 12 months, was t here a time when you were not able to pay the mortgage or rent on time? No 04/16/2024 In the last 12 months, how many places have you lived? 1 04/16/2024 In the last 12 months, was t here a time when you did not have a steady place to sleep or slept in a senior living (including now)? No 04/16/2024 Sex and Gender Information Value Date Recorded Sex Assigned at Male 10/22/2023 6:58 PM EST Legal Sex Male 7:26 PM EDT Gender Identity Male 10/22/2023 6:58 PM EST Sexual Orientation Straight 10/22/2023 6: 58 PM EST documented as of this encounter Plan of Treatment Upcoming Encounters Date Type Department Care Team (Late st Contact Info) Description 04/28/2025 4:30 PM EDT Evaluation [facility] [address] [facility] [address] [place] [address] Zafar Anne T, PT [address] [facility] [address] [place] [address] 05/12/2025 2:30 PM EDT Office Visit [facility] [address] [place] [phone] Jermaine Barron, AVIONICS ENGINEER [address] [place] [address] 10/22/2025 7:15 AM EST Office Visit [facility] [address] [place] [phone] Willy Gunderson MD [address] [place] [address] documented as of this encounter Procedures Procedure Name Priority Date/Time Associated Diagnosis Comments DIABETIC RETINOPATHY SCREENING - OU - BOTH EYES Routine 04/22/2025 10:38 AM EDT documented in this encounter Results * Diabetic Retinopathy Screening - OU - Both Eyes (04/22/2025 10:38 AM EDT) Anatomical Region Laterality Modality Head Other Willy Gunderson MD OPHTH PHOTOGRAPHY Final Result documented in this encounter Visit Diagnoses Not on filedocumented in this encounter Care Teams Foreign Language Interpreter Relationship Specialty Start Date End Date Willy Gunderson MD [address] [place] [address] PCP - General Family Medicine 04/17/24 documented as of this encounter
--- OUTSIDE RECORDS SUMMARY | 2025-04-26 09:03 | XMS_ITS | Encounter Summary ---
Author Organization [facility] Address [address] [place] [address] Care Team Providers Care Industrial Machinery Mechanic Name Role Phone Willy Gunderson MD Primary Care Provider [phone] Encounter Details Date Type Department Care Team (Latest Contact Info) Description 04/23/2025 Travel Social History Tobacco Use Types Packs/Day Years [...] Never 04/16/2024 How often do you attend latter-day or mu-ism serv ices? Never 04/16/2024 Do you belong to any clubs o r organizations such as latter-day groups, unions, fraternal or athletic groups, or [...] care, and heating? Not very hard 04/16/2024 [facility] [place] of Occupat ional Health - Occupational Stress [...] place to sleep or slept in a long-term (including now)? No 04/16/2024 Sex and Gender [...] Evaluation [facility] [address] [facility] [address] [place] [address] Omid Zafar Nancy, PT [address] [facility] [address] [place] [address] 05/12/2025 2:30 PM EDT Office Visit [facility] [address] [place] [phone] Jermaine Barron, FRONT END SPECIALIST [address] [facility], [place] [phone] 10/22/2025 7:15 AM EST Office Visit [facility] [address] [place] [address] Willy Gunderson MD [address] [place] [address] documented as of this encounter Visit Diagnoses Not on filedocumented in this encounter Care Teams Industrial Machinery Mechanic Relationship Specialty Start Date End Date Willy Gunderson MD [address] [place] [address] PCP - General Family Medicine 04/17/24 documented as of this encounter
--- OUTSIDE RECORDS SUMMARY | 2025-04-26 09:03 | XMS_ITS | Encounter Summary ---
Author Organization [facility] Address [address] [place] [address] Care Team Providers Care Basketball Commentator Name Role Phone Willy Gunderson MD Primary Care Provider [phone] Encounter Details Date Type Department Care Team (Late st Contact Info) Description 04/22/2025 [facility] [address] [place] [address] Willy Gunderson MD [address] [place] [address] Social History Tobacco Use Types Packs/Day Years [...] Never 04/16/2024 How often do you attend worship or bahai serv ices? Never 04/16/2024 Do you belong to any clubs o r organizations such as worship groups, unions, fraternal or athletic groups, or [...] care, and heating? Not very hard 04/16/2024 [facility] [place] of Occupat ional Health - Occupational Stress [...] place to sleep or slept in a alf (including now)? No 04/16/2024 Sex and Gender [...] Evaluation [facility] [address] [facility] [address] [place] [address] Zafar Anne, PT [address] [facility] [address] [place] [address] 05/12/2025 2:30 PM EDT Office Visit [facility] [address] [place] [phone] Jermaine Barron, PRINTING PLATE MAKER [address] [place] [address] 10/22/2025 7:15 AM EST Office Visit [facility] [address] [place] [address] Willy Gunderson MD [address] [place] [address] documented as of this encounter Visit Diagnoses Not on filedocumented in this encounter Care Teams Basketball Commentator Relationship Specialty Start Date End Date Willy Gunderson MD [address] [place] [address] PCP - General Family Medicine 04/17/24 documented as of this encounter
--- OUTSIDE RECORDS SUMMARY | 2025-04-26 09:03 | XMS_ITS | Encounter Summary ---
Author Organization [facility] Address [address] [place] [address] Care Team Providers Care Round Up Ring Hand Name Role Phone Willy Gunderson MD Primary Care Provider [phone] Willy Gunderson MD Unavailable Encounter Details Date Type Department Care Team (Late st Contact Info) Description 05/13/2024 Orders Only [facility] [address] [place] [address] Willy Gunderson MD [address] [place] [address] Social History Tobacco Use Types Packs/Day Years [...] Never 04/16/2024 How often do you attend episcopal or buddhist serv ices? Never 04/16/2024 Do you belong to any clubs o r organizations such as episcopal groups, unions, fraternal or athletic groups, or [...] care, and heating? Not very hard 04/16/2024 [facility] [place] of Occupat ional Health - Occupational Stress [...] place to sleep or slept in a [place] (including now)? No 04/16/2024 Sex and Gender [...] Evaluation [facility] [address] [facility] [address] [place] [address] Zafar Anne, PT [address] [facility] [address] [place] [address] 05/12/2025 2:30 PM EDT Office Visit [facility] [address] [place] [phone] Jermaine Barron, AQUATIC DIRECTOR [address] [place] [address] 10/22/2025 7:15 AM EST Office Visit [facility] [address] [place] [address] Willy Gunderson MD [address] [place] [address] documented as of this encounter Visit Diagnoses Not on filedocumented in this encounter Care Teams Round Up Ring Hand Relationship Specialty Start Date End Date Willy Gunderson MD [address] [place] [address] PCP - General Family Medicine 04/17/24 Willy Gunderson MD [address] [place] [address] PCP - [facility] [employer] 08/13/24 documented as of this encounter
--- OUTSIDE RECORDS SUMMARY | 2025-04-26 09:03 | XMS_ITS | Clinical Summary ---
Author Organization [facility] Healthcare Address [address] [place] [address] Care Team Providers Care Assistive Technology Specialist Name Role Phone Willy Gunderson MD Primary Care Provider [phone] Allergies No known active allergies Medications pioglitazone (Actos) 30 MG tabletIndications :Type 2 diabetes mellitus with hyperglycemia (HCC) TAKE 1 TABLET BY MOUTH EVERY DAY 90 tablet 1 12/30/19 25 Active atorvastatin (Lipitor) 40 MG tabletIndications :Hyperlipidemia, unspecified TAKE 1 TABLET BY MOUTH EVERYDAY AT BEDTIME 90 tablet 1 12/30/19 25 Active lisinopril 10 MG tabletIndications :Essential (primary) hypertension,Kendrick gn essential hypertension TAKE 1 TABLET BY MOUTH EVERY DAY 90 tablet 1 12/30/19 25 Active aspirin 81 MG EC tablet Take 81 mg by mouth Daily Active Semaglutide, 2 MG/DOSE, (Ozempic, 2 MG/DOSE,) 8 MG/3ML solution pen-injectorIndic ations:Type 2 diabetes mellitus with hyperglycemia, without long-term current use of insulin (HCC) Inject 2 mg under the skin 1 (one) time per week 3 mL 5 04/22/20 25 Active glipiZIDE (Glucotrol) 10 MG tabletIndications :Type 2 diabetes mellitus with hyperglycemia, without long-term current use of insulin (HCC) Take 1 tablet (10 mg) by mouth Daily 10/23/20 24 025 Discontinued semaglutide (Ozempic, 1 MG/DOSE,) 4 MG/3ML solution pen-injectorIndic ations:Type 2 diabetes mellitus with hyperglycemia, without long-term current use of insulin (HCC) INJECT 1 MG UNDER THE SKIN 1 (ONE) TIME PER WEEK 3 mL 5 12/25/19 25 025 Discontinued Active Problems Problem Noted Date Diagnosed Date Chronic right shoulder pain 10/23/2024 Assessment & Plan (04/22/2025 10:02 AM EDT): Continued pain and start PT. Refer to ortho for possible injection. Assessment & Plan (10/23/2024 10:12 AM EST): Pain for months and likely muscular. Follow with chiropractor. Class 1 obesity due to exces s calories with serious comorbidity and body mass index (BMI) of 34.0 to 34.9 in adult 07/19/2024 Assessment & Plan (04/22/2025 10:02 AM EDT): Weight loss indicated. Assessment & Plan (10/23/2024 10:13 AM EST): Weight down 11 pounds. Assessment & Plan (07/19/2024 10:52 AM EDT): Weight down 5 pounds. Chronic right-sided thoracic back pain Assessment & Plan (04/17/2024 7:40 AM EDT): Increased pain and likely muscular. Start robaxin PRN. Use heat and massage PRN. Benign hypertension 10/26/2023 Assessment & Plan (04/22/2025 10:02 AM EDT): BP controlled and monitor PRN. Assessment & Plan (10/23/2024 10:12 AM EST): BP controlled and monitor PRN. Assessment & Plan (07/19/2024 10:52 AM EDT): BP controlled and monitor PRN. Assessment & Plan (04/17/2024 7:39 AM EDT): BP controlled and monitor PRN. Assessment & Plan (10/26/2023 11:36 AM EST): BP controlled and monitor PRN. Dyslipidemia 10/26/2023 History of deep vein thrombosis (DVT) of lower e xtremity 10/26/2023 Primary hypogonadism in male 10/26/2023 Type 2 diabetes mellitus wit h hyperglycemia, without long-term current use of insulin 10/26/2023 Assessment & Plan (04/22/2025 10:03 AM EDT): BS controlled and due for A1C. Weight unchanged and increase ozempic. Stop glipizide. Stick to ADA diet and limit carbs. Assessment & Plan (10/23/2024 10:13 AM EST): BS controlled and due for A1C. Stick to ADA diet and limit carbs. Assessment & Plan (07/19/2024 10:53 AM EDT): BS improved and starting to go low. Decrease glipizide to once a day and take with food. Increase ozempic. Likely will be able to stop glipizide in future. Assessment & Plan (04/17/2024 7:40 AM EDT): BS not controlled and stop januvia. Start ozempic. Due for A1C. Stick to ADA diet and limit carbs. Assessment & Plan (10/26/2023 11:36 AM EST): Reports BS controlled and due for A1C. C/o diarrhea from metformin and stop. Add januvia. Stick to ADA diet and limit carbs. Annual physical exam 10/26/2023 Assessment & Plan (04/22/2025 10:02 AM EDT): Due for labs. Discussed proper diet and regular aerobic exercise. Need aerobic exercise 5-6 days a week for 30 minutes at a time. Smaller portions and limit total calories. Cologuard normal in October 2024. Tetanus every 10 years. Advised not to smoke. Assessment & Plan (10/26/2023 11:36 AM EST): Reviewed labs from summer. Discussed proper diet and regular aerobic exercise. Need aerobic exercise 5-6 days a week for 30 minutes at a time. Smaller portions and limit total calories. Cologuard normal in 2020. Tetanus every 10 years. Advised not to smoke. Discussed daily Aspirin therapy. Resolved Problems Problem Noted Date Diagnosed Date Resolved Date Right-sided low back pain without sciatica 04/17/2024 04/17/2024 Vitamin D deficiency 10/26/2023 024 Encounters Date Type Department Care Team Description 04/23/2025 Travel 04/22/2025 9:15 AM EDT Office Visit [facility] [address] [place] [address] Willy Gunderson MD Annual physical exam (Primary Dx); Type 2 diabetes mellitus with hyperglycemia, without long-term current use of insulin (HCC); Benign hypertension ; Class 1 obesity due to excess calories with serious comorbidity and body mass index (BMI) of 34.0 to 34.9 in adult; Chronic right shoulder pain 04/22/2025 Orders Only [facility] [address] [place] [address] Willy Gunderson MD 04/22/2025 Bamboo flowsheet [facility] [address] [place] [address] Willy Gunderson MD 04/15/2025 Travel from Last 3 Months Family History Medical History Relation Name Comments No Known Problems Daughter Diabetes Father Hypertension Father Prostate cancer Father Breast cancer Mother Heart murmur Mother Lymphoma Mother Diabetes Other siblings Breast cancer Sister Relation Name Status Comments Brother 1 brother Daughter 1 daughter Father Alive Mother Other siblings Sister 3 sisters Social History Tobacco Use Types Packs/Day Years Used Date Smoking Tobacco: Former Cigarettes Smokeless Tobacco: Never Tobacco Cessation:Counseling Given: Not Answered Alcohol Use Standard Drinks/Week Comments Yes 1 [...] Never 04/16/2024 How often do you attend religion or roman catholic serv ices? Never 04/16/2024 Do you belong to any clubs o r organizations such as religion groups, unions, fraternal or athletic groups, or [...] care, and heating? Not very hard 04/16/2024 [facility] [place] of Occupat ional Health - Occupational Stress [...] place to sleep or slept in a fpc (including now)? No 04/16/2024 Sex and Gender Information Value Date Recorded Sex Assigned at Male 10/22/2023 6:58 PM EST Legal Sex Male 7:26 PM EDT Gender Identity Male 10/22/2023 6:58 PM EST Sexual Orientation Straight 10/22/2023 6: 58 PM EST Last Filed Vital Signs Vital Sign Reading Time Taken Comments Blood Pressure 118/70 04/22/2025 9:19 AM EDT Pulse 74 04/22/2025 9:19 AM EDT Temperature 36.4 C (97.5 F) 04/22/2025 9:19 AM EDT Respiratory Rate 18 04/22/2025 9:19 AM EDT Oxygen Saturation 98% 04/22/2025 9:19 AM EDT Inhaled Oxygen Concentration - - Weight 107 kg (235 lb) 04/22/2025 9:19 AM EDT Height 175.3 cm (5' 9 ) 04/22/2025 9:19 AM EDT Body Mass Index 34.7 04/22/2025 9:19 AM EDT Plan of Treatment Upcoming Encounters Date Type Department Care Team (Late st Contact Info) Description 04/28/2025 4:30 PM EDT Evaluation [facility] [address] [facility] [address] [place] [phone] Zafar Anne T, PT [address] [facility] [address] [place] [address] 05/12/2025 2:30 PM EDT Office Visit [facility] [address] [address] Jermaine Barron, CONTENT DEVELOPER [address] [place] [address] 10/22/2025 7:15 AM EST Office Visit [facility] [address] [place] [address] Willy Gunderson MD [address] [place] [address] Health Maintenance Due Date Last Done Comments CT Colonography 1969 Colonoscopy 1969 FIT 1969 FOBT 1969 Sigmoidoscopy 1969 Diabetes: Urine Protein Screening 11/08/2024 023, 07/06/2018 Diabetes: Hemoglobin A1C 11/15/2024 024, 07/06/2018, 07/06/2018, Additional history exists Influenza Vaccine (Season Ended) 2025 Diabetes: Retinopathy Screening 04/22/2027 04/22/2025, 01/20/2025, 06/19/2023 Colorectal Cancer Screening 11/07/2027 FIT-DNA 11/07/2027 11/07/2024, 07/28/2021 Procedures Procedure Name Priority Date/Time Associated Diagnosis Comments DIABETIC RETINOPATHY SCREENING - OU - BOTH EYES Routine 04/22/2025 10:38 AM EDT LAB COLOGUARD COLON CANCER SCREEN Routine 11/07/2024 6:30 AM EST Colon cancer screening HEMOGLOBIN A1C* Routine 07/06/2018 12:00 PM EDT MICROALBUMIN / CREATININE URINE RATIO Routine 07/06/2018 from Last 3 Months or Most Recently Relevant to Health Maintenance Results * Diabetic Retinopathy Screening - OU - Both Eyes (04/22/2025 10:38 AM EDT) Anatomical Region Laterality Modality Head Other Willy Gunderson MD OPHTH PHOTOGRAPHY Final Result * Cologuard?? colon cancer screening (11/07/2024 6:30 AM EST) NONINV COLON CA DNA+OCC BLD SCRN STL-IMP Negative Negative 11/15/2024 1:27 PM EST [facility] (CLIA #:[id number]) Comment: NEGATIVE TEST RESULT. A negative Cologuard result indicates a low likelihood that a colorectal cancer (CRC) or advanced adenoma (adenomatous polyps with more advanced pre-malignant features) is present. The chance that a person with a negative Cologuard test has a colorectal cancer is less than 1 in 1500 (negative predictive value >99.9%) or has an advanced adenoma is less than 5.3% (negative predictive value 94.7%). These data are based on a prospective cross-sectional study of 10,000 individuals at average risk for colorectal cancer who were screened with both Cologuard and colonoscopy. (Trevor Garcia al, N Engl J Med 2014;370(14):8716-2886) The normal value (reference range) for this assay is negative. COLOGUARD RE-SCREENING RECOMMENDATION: Periodic colorectal cancer screening is an important part of preventive healthcare for asymptomatic individuals at average risk for colorectal cancer. Following a negative Cologuard result, the [place] [employer] Society and U.S. Multi-Society Task Force screening guidelines recommend a Cologuard re-screening interval of 3 years. References: [place] [employer] Guideline for Colorectal Cancer Screening: https://www.cancer.org/cancer/qceww-iiljcm-juzzcy/zjiiubvlr-qcsmehmnu-uomstwh/ac s-rec ommendations.html.; Leandro DK, Jyotsna CR, Quique FarrK, Colorectal Cancer Screening: Recommendations for Physicians and Patients from the U.S. Multi-Society Task Force on Colorectal Cancer Screening , Am J Gastroenterology 2017; 112:8895-2972. TEST DESCRIPTION: Composite algorithmic analysis of stool DNA-biomarkers with hemoglobin immunoassay. Quantitative values of individual biomarkers are not reportable and are not associated with individual biomarker result reference ranges. Cologuard is intended for colorectal cancer screening of adults of either sex, 45 years or older, who are at average-risk for colorectal cancer (CRC). Cologuard has been approved for use by the U.S. FDA. The performance of Cologuard was established in a cross sectional study of average-risk adults aged 50-84. Cologuard performance in patients ages 45 to 49 years was estimated by sub-group analysis of near-age groups. Colonoscopies performed for a positive result may find as the most clinically significant lesion: colorectal cancer [4.0%], advanced adenoma (including sessile serrated polyps greater than or equal to 1cm diameter) [20%] or non- advanced adenoma [31%]; or no colorectal neoplasia [45%]. These estimates are derived from a prospective cross-sectional screening study of 10,000 individuals at average risk for colorectal cancer who were screened with both Cologuard and colonoscopy. (Trevor Vilchis et al, N Engl J Med 2014;370(14):6500-9488.) Cologuard may produce a false negative or false positive result (no colorectal cancer or precancerous polyp present at colonoscopy follow up). A negative Cologuard test result does not guarantee the absence of CRC or advanced adenoma (pre-cancer). The current Cologuard screening interval is every 3 years. ([place] [employer] and U.S. Multi-Society Task Force). Cologuard performance data in a 10,000 patient pivotal study using colonoscopy as the reference method can be accessed at the following location: www.OnGreen.BigBarn/results. Additional description of the Cologuard test process, warnings and precautions can be found at www.WorkWith.meogAlien Technologyrd.BigBarn. Stool specimen (specimen) 11/07/2024 6:30 AM EST 11/11/2024 11:00 AM EST Willy Gunderson MD LAB MOLECULAR DIAGNOSTICS ORDERA BLES Final Result .[facility] (CLIA #:[id number]) [address] [id number], [facility] (CLIA #:[id number]) [address] [id number] * HEMOGLOBIN A1C* (07/06/2018 12:00 PM EDT) Pathologist [facility] GENERIC LEGACY COMPONENT INTERNAL 7.0 [facility] NONXML LABS 07/06/2018 12:0 0 PM EDT Aniceto Carl ECW LABS Final Result Performing Organization Address [facility] de Phone Number [facility] NONXML LABS * Microalbumin / creatinine urine ratio (07/06/2018) 2176 149 20 - 370 [facility] 3779 0.4 NOT ESTABLISHED [facility] 4064 2.7 0.0 - 29.9 [facility] Comment: THE ADA (DIABETES CARE 26:S94-S98, 2003) DEFINES ABNORMALITIES IN ALBUMIN EXCRETION FOLLOWS: CATEGORY RESULT (MCG/MG CREATININE) -------- NORMAL <30 MICROALBUMINURIA 30 - 299 CLINICAL ALBUMINURIA > OR = 300 THE ADA RECOMMENDS THAT AT LEAST TWO OF THREE SPECIMENS COLLECTED WITHIN A 3-6 MONTH PERIOD BE ABNORMAL BEFORE CONSIDERING A PATIENT TO BE WITHIN A DIAGNOSTICS CATEGORY. 07/06/2018 Aniceto Carl LAB URINE ORDERABLES Final Resul t Performing Organization Address [facility] de Phone Number [facility] from Last 3 Months or Most Recently Relevant to Health [place] [address] [facility] Care Teams Assistive Technology Specialist Relationship Specialty Start Date End Date Willy Gunderson MD [address] [place] [phone] PCP - General Family Medicine 04/17/24
--- OUTSIDE RECORDS SUMMARY | 2025-04-26 09:03 | XMS_ITS | Clinical Summary ---
Author Organization [facility] Address [id number] [address] [place] [address] Care Team Providers Care Public Relations Studies Director Name Role Phone Aniceto Carl MD Primary Care Provider [phone] Allergies No known active allergies Medications canagliflozin (INVOKANA) 100 mg tablet Take 100 mg by mouth daily. Active sitaGLIPtin (JANUVIA) 100 mg tablet Take 100 mg by mouth daily. Active Active Problems No known active problems Family History Medical History Relation Name Comments Cancer Mother Relation Name Status Comments Mother Social History Tobacco Use Types Packs/Day Years Used Date Smoking Tobacco: Former Childcare Answer Date Recorded Childcare Unknown 04/24/2019 Employment Answer Date Recorded Employment Unknown 04/24/2019 Purpose - Life Answer Date Recorded Purpose and direction in life Unknown Sex and Gender Information Value Date Recorded Sex Assigned at Not on file Legal Sex Male 12:05 PM EDT Gender Identity Not on file Sexual Orientation Not on file Last Filed Vital Signs Vital Sign Reading Time Taken Comments Blood Pressure 142/96 03/15/2017 4:43 PM EDT Pulse 88 03/15/2017 4:43 PM EDT Temperature - - Respiratory Rate 20 03/15/2017 4:43 PM EDT Oxygen Saturation - - Inhaled Oxygen Concentration - - Weight 96.2 kg (212 lb) 03/15/2017 4:43 PM EDT Height 177.8 cm (5' 10 ) 03/15/2017 4:43 PM EDT Body Mass Index 30.42 03/15/2017 4:43 PM EDT Plan of Treatment Health Maintenance Due Date Last Done Comments Depression Screening 1981 Tobacco Screening 1981 Adult BMI Screening 1987 DTaP,Tdap and Td Vaccines (1 - Tdap) 1988 Zoster (Shingles) Vaccine (1 of 2) 2019 Influenza Vaccine 07/14/2025 Goals Goal Patient Goal Type Associated Problems Recent Progress Patient-Stated? Author Reduce carb intake to 60-75 grams per meal Diet No Adrianne Beckham RN Note: Evaluation of progress towards goal: new goal Increase physical activity Lifestyle No Adrianne Beckham RN Note: Evaluation of progress towards goal: goal is to exercise 30 min 3 to 5 times weekly Medical Devices Not on file Insurance [employer] Care Teams Public Relations Studies Director Relationship Specialty Start Date End Date Aniceto Carl MD [address] [place] [address] PCP - General Family Medicine 03/15/17
--- OUTSIDE RECORDS SUMMARY | 2025-04-26 09:03 | XMS_ITS | Encounter Summary ---
Author Organization [facility] Address [address] [place] [address] Care Team Providers Care Christian Science Healer Name Role Phone Willy Gunderson MD Primary Care Provider [phone] Willy Gunderson MD Unavailable Encounter Details Date Type Department Care Team (Late st Contact Info) Description 01/20/2025 Orders Only [facility] [address] [place] [address] Willy Gunderson MD [address] [place] [address] Social History Tobacco Use Types Packs/Day Years [...] How often do you attend latter-day or yarsani serv ices? Never 04/16/2024 Do you belong [...] care, and heating? Not very hard 04/16/2024 [facility] [place] of Occupat ional Health - Occupational Stress [...] place to sleep or slept in a jail (including now)? No 04/16/2024 Sex and Gender [...] EDT Evaluation [facility] [address] [facility] [address] [place] [address] Zafar Anne, PT [address] [facility] [address] [place] [address] 05/12/2025 2:30 PM EDT Office Visit [facility] [address] [place] [phone] Jermaine Barron, CANAL LOCK TENDER CHIEF OPERATOR [address] [place] [address] 10/22/2025 7:15 AM EST Office Visit [facility] [address] [place] [phone] Willy Gunderson MD [address] [place] [address] documented as of this encounter Procedures Procedure Name Priority Date/Time Associated Diagnosis Comments DIABETIC RETINOPATHY SCREENING - OU - BOTH EYES Routine 01/20/2025 4:34 PM EDT documented in this encounter Results * Diabetic Retinopathy Screening - OU - Both Eyes (01/20/2025 4:34 PM EDT) Anatomical Region Laterality Modality Head Other Willy Gunderson MD OPHTH PHOTOGRAPHY Final Result documented in this encounter Visit Diagnoses Not on filedocumented in this encounter Care Teams Christian Science Healer Relationship Specialty Start Date End Date Willy Gunderson MD [address] [place] [address] PCP - General Family Medicine 04/17/24 Willy Gunderson MD [address] [place] [address] PCP - [employer] 08/13/24 documented as of this encounter
--- OUTSIDE RECORDS SUMMARY | 2025-04-26 09:03 | XMS_ITS | Encounter Summary ---
Author Organization [facility] Address [address] [place] [address] Care Team Providers Care Sr Account Executive Name Role Phone Willy Gunderson MD Primary Care Provider [phone] Encounter Details Date Type Department Care Team (Latest Contact Info) Description 04/15/2025 Travel Social History Tobacco Use Types Packs/Day [...] Never 04/16/2024 How often do you attend hinduism or cheondoism serv ices? Never 04/16/2024 Do you belong to any clubs o r organizations such as hinduism groups, unions, fraternal or athletic groups, or [...] care, and heating? Not very hard 04/16/2024 [facility] of Occupat ional Health - Occupational Stress [...] place to sleep or slept in a half-way (including now)? No 04/16/2024 Sex and Gender [...] Evaluation [facility] [address] [facility] [address] [place] [address] Omid Zafar Nancy, PT [address] [facility] [address] [place] [address] 05/12/2025 2:30 PM EDT Office Visit [facility] [address] [place] [phone] Jermaine Barron, PRACTICE MANAGER [address] [place], [place] [phone] 10/22/2025 7:15 AM EST Office Visit [facility] [address] [place] [phone] Willy Gunderson MD [address] [place] [address] documented as of this encounter Visit Diagnoses Not on filedocumented in this encounter Care Teams Sr Account Executive Relationship Specialty Start Date End Date Willy Gunderson MD [address] [place] [address] PCP - General Family Medicine 04/17/24 documented as of this encounter
--- OUTSIDE RECORDS SUMMARY | 2025-04-26 09:04 | XMS_ITS | CCD ---
Author Organization [facility] Inform ion Partnership [facility] Care Team Providers Care Utility System Repairer Name Role Phone DR WILLY LOBATO Attending Unavailable LUIS ALFREDO, DR WILLY Csatillo Admitting Unavailable LUIS ALFREDO, DR WILLY Castillo Primary Care Unavailable LUIS ALFREDO, DR WILLY Castillo Consulting Unavailable LUIS ALFREDO, DR WILLY Castillo Admitting Unavailable LUIS ALFREDO, DR WILLY Castillo Primary Care Unavailable LUIS ALFREDO, DR WILLY Castillo Consulting Unavailable LUIS ALFREDO, DR WILLY Castillo Attending Unavailable Gema Hutchison Unavailable Willy Lobato MD Primary Care Provider Willy Lobato MD Unavailable Simone Torre M.D. Attending Provider WILLY LOBATO Attending Unavailable LUIS ALFREDO, WILLY Attending Unavailable WILLY LOBATO Attending Unavailable Medications Current Medications Medication Drug Class(es) Dates Sig (Normalized) Sig (Original) aspirin 81 mg delayed release oral tablet (2 sources) Platelet Aggregation Inhibitor, Nonsteroidal Anti-inflammatory Drug take 1 tablet by mouth once daily aspirin 81 MG EC tablet Take 81 mg by mouth Daily Active atorvastatin 40 mg oral tablet (12 sources) HMG-CoA Reductase Inhibitor Start: 12-30-2024 take 1 tablet by mouth once daily at bedtime atorvastatin (Lipitor) 40 MG tablet Indications: Hyperlipidemia, unspecified (CMS/HCC) TAKE 1 TABLET BY MOUTH EVERYDAY AT BEDTIME 90 tablet 1 12/30/2024 Active Start: 07-02-2024 take 1 tablet by alexandria th once daily at bedtime atorvastatin (Lipitor) 40 MG tablet Indications: Hyperlipidemia, unspecified (CMS/HCC) TAKE 1 TABLET BY MOUTH EVERYDAY AT BEDTIME 90 tablet 1 07/02/2024 Active Lipitor Active Childrens Aspirin (1 source) Childrens Aspiri n Active glipiZIDE 10 mg oral tablet (16 sources) Sulfonylurea Start: 10-23-2024 End: 04-22-2025 take 1 tablet by mouth once daily glipiZIDE (Glucotrol) 10 MG tablet Indications: Type 2 diabetes mellitus with hyperglycemia, without long-term current use of insulin (CMS/HCC) Take 1 tablet (10 mg) by mouth Daily 10/23/2024 04/22/2025 Discontinued Start: 10-01-2024 End: 10-23-2024 take 1 tablet [...] glipiZIDE Active lisinopril 10 mg oral tablet (12 sources) Angiotensin Converting Enzyme Inhibitor Start: 12-30-2024 take 1 tablet by mouth once daily lisinopril 10 MG tablet Indications: Essential (primary) hypertension (CMS/HCC) , Benign essential hypertension (CMS/HCC) TAKE 1 TABLET BY MOUTH EVERY DAY 90 tablet 1 12/30/2024 Active Start: 07-04-2024 take 1 tablet by alexandria th once daily lisinopril 10 MG tablet Indications: [...] Act elizabeth pioglitazone 30 mg oral tablet (12 sources) Peroxisome Proliferator Receptor alpha Agonist, Peroxisome Proliferator Receptor gamma Agonist, Thiazolidinedione Start: take 1 tablet by mouth once daily pioglitazone (Actos) 30 MG tablet Indications: Type 2 diabetes mellitus with hyperglycemia (CMS/HCC) TAKE 1 TABLET BY MOUTH EVERY DAY 90 tablet 1 12/30/2024 Active Start: 07-02-2024 take 1 tablet by alexandria th once daily pioglitazone (Actos) 30 MG tablet [...] weekly 1 each 3 04/17/2024 07/19/2024 Discontinued Semaglutide (1 source) Start: 01-21-2025 Semaglutide (O zempic) 1 mg/dose (4 mg/3 mL) pen injector Active MG SUBCUT January 21, 2025 12:00am semaglutide (Ozempic, 1 MG/DOSE,) 4 MG/3ML solution pen-injector (9 sources) Start: 12-25-2024 End: 04-22-2025 inject 1 mg by subcutaneous injection every week semaglutide (Ozempic, 1 MG/DOSE,) 4 MG/3ML solution pen-injector Indications: Type 2 diabetes mellitus with hyperglycemia, without long-term current use of insulin (CMS/HCC) INJECT 1 MG UNDER THE SKIN 1 (ONE) TIME PER WEEK 3 mL 5 12/25/2024 04/22/2025 Discontinued Start: 12-25-2024 inject 1 mg by subcu taneous injection every week semaglutide (Ozempic, 1 MG/DOSE,) 4 MG/3ML solution pen-injector Indications: Type 2 diabetes mellitus with hyperglycemia, without long-term current use of insulin (CMS/HCC) INJECT 1 MG UNDER THE SKIN 1 (ONE) TIME PER WEEK 3 mL 5 12/25/2024 Active Start: 07-19-2024 inject 1 mg by subcu taneous injection every week semaglutide (Ozempic, 1 MG/DOSE,) 4 MG/3ML solution pen-injector Indications: Type 2 diabetes mellitus with hyperglycemia, without long-term current use of insulin (CMS/HCC) Inject 1 mg under the skin 1 (one) time per week 1 each 5 07/19/2024 Active Semaglutide, 2 MG/DOSE, (Ozempic, 2 MG/DOSE,) 8 MG/3ML solution pen-injector (2 sources) Start: 04-22-2025 inject 2 mg by subcutaneous injection every week Semaglutide, 2 MG/DOSE, (Ozempic, 2 MG/DOSE,) 8 MG/3ML solution pen-injector Indications: Type 2 diabetes mellitus with hyperglycemia, without long-term current use of insulin (CMS/HCC) Inject 2 mg under the skin 1 (one) time per week 3 mL 04/22/2025 Active Problems Active Problems Problem Classification Problem Date Documented Da te Episodic/Chronic Coagulation and hemorrhagic disorders (1 source) Factor VIII deficiency; 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 Diabetes mellitus with complications (17 sources) Type 2 diabetes mellitus with hyperglycemia; Translations: [Hyperglycemia due to type 2 diabetes mellitus] Onset: 07-13-2022 10-26-2023 Chronic Disorders of lipid metabolism (10 sources) Dyslipidemia; Translations: [Hyperlipidemia, unspecified] Onset: 10-26-2023 10-26-2023 Chronic Essential hypertension (16 sources) Benign hypertension; Translations: [Essential (primary) hypertension] Onset: 10-26-2023 10-26-2023 Chronic Other endocrine disorders (1 source) Testicular hypofunction; Translations: [TESTICULAR HYPOFUNCTION] Onset: 03-23-2023 Chronic Other endocrine disorders (10 sources) Testicular hypofunction; Translations: [Testicular hypofunction] Onset: 10-26-2023 10-26-2023 Chronic Other non-traumatic joint disorders (10 sources) Chronic pain of right upper limb; Translations: [Pain in right shoulder] Onset: 10-23-2024 10-23-2024 Episodic Other nutritional; endocrine; and metabolic disorders (7 sources) Body mass index 30+ - obesity; Translations: [Obesity, unspecified] Onset: 07-19-2024 07-19-2024 Chronic Other nutritional; endocrine; and metabolic disorders (10 sources) Obesity caused by energy imbalance; Translations: [...] Translations: [Acute upper respiratory infection, unspecified] Episodic Unclassified (4 sources) Chronic pain of right upper limb 04-22-2025 Past or Other Problems Problem Classification Problem Date Documented Da te Episodic/Chronic Nutritional deficiencies (11 sources) Vitamin D deficiency, unspecified; Translations: [Vitamin D deficiency] Onset: 07-13-2022 Resolved: 04-17-2024 04-17-2024 Chronic Phlebitis; thrombophlebitis and thromboembolism (10 sources) H/O: Deep vein thrombosis; Translations: [Personal history of other venous thrombosis and embolism] Onset: 10-26-2023 10-26-2023 Episodic Spondylosis; intervertebral disc disorders; other back problems (20 sources) Chronic thoracic back pain; Translations: [Pain in thoracic spine] Onset: 04-17-2024 Resolved: 04-17-2024 04-17-2024 Episodic Results Test Name Value Interpretation Reference Range Facility [facility] HEMOGLOBIN A1Con 024 Glucose [Mass/Vol] 114 mg/dL [facility] HbA1c (Bld) [Mass fraction] 5.6 % 4.5 - 6.2 % [facility] Comment on above: ADA RECOMMENDED LIMI T 4.0 - 6.0 ADA THERAPEUTIC TARGET < 7.0 ACTION SUGGESTED > 7.0 [facility] Quick Strepon 07-29-2023 S. pyogenes Org specific cx Ql (Throat) Negative [employer] Other Quick Strep [facility] [employer] Other TESTOSTERONE, TOTALon 2022 Testosterone [Mass/Vol] 285 ng/dL Normal 264-916 [facility] Comment on above: Result Comment: Adul t male reference interval is based on a population of healthy nonobese males (BMI <30) between 19 and 39 years old. Keyona et.al. JCEM 2017,102;4639-9270. PMID: [id number]. Performed By: #### T ESTTOT #### [facility] [address] [place] [address] Dr. Bakari Sullivan CBC AUTO DIFFon 03-18-2023 BASO # 0.1 103/ul Normal 0.0-0.1 [facility] Comment on above: Performed By: #### C BC #### [facility] [address] [place] [address] Dr. Bakari Sullivan Basophils/100 WBC (Bld) 0.8 % Normal 0.2-2.0 [facility] Comment on above: Performed By: #### C BC #### [facility] [address] [place] [address] Dr. Bakari Sullivan EO # 0.1 103/ul Normal 0.0-0.7 [facility] Comment on above: Performed By: #### C BC #### [facility] [address] [place] [address] Dr. Bakari Sullivan Eosinophils/100 WBC (Bld) 2.3 % Normal 0.9-7.0 [facility] Comment on above: Performed By: #### C BC #### [facility] [address] [place] [address] Dr. Bakari Sullivan Erythrocyte distribution width (RBC) [Ratio] 14.2 % Normal 11.0-15.0 [facility] Comment on above: Performed By: #### C BC #### [facility] [address] [place] [address] Dr. Bakari Sullivan Hematocrit (Bld) [Volume fraction] 45.2 % Normal 42.0-54.0 [facility] Comment on above: Performed By: #### C BC #### [facility] [address] [place] [address] Dr. Bakari Sullivan Hemoglobin (Bld) [Mass/Vol] 15.0 g/dL Normal 14.0-18.0 [facility] Comment on above: Performed By: #### C BC #### [facility] [address] [place] [address] Dr. Bakari Sullivan IG # 0.03 10e3/ul Normal 0.00-0.03 [facility] Comment on above: Performed By: #### C BC #### [facility] [address] [place] [address] Dr. Bakari Sullivan IG % 0.5 % Normal 0.0-0.5 [facility] Comment on above: Performed By: #### C BC #### [facility] [address] [place] [address] Dr. Bakari Sullivan LYMPH # 2.0 103/ul Normal 1.2-3.8 [facility] Comment on above: Performed By: #### C BC #### [facility] [address] [place] [address] Dr. Bakari Sullivan Lymphocytes/100 WBC (Bld) 31.6 % Normal 20.5-60.0 [facility] Comment on above: Performed By: #### C BC #### [facility] [address] [place] [address] Dr. Bakari Sullivan MANUAL DIFF REQ NO Normal [facility] Comment on above: Performed By: #### C BC #### [facility] [address] [address] [address] Bakari Sullivan MCH (RBC) [Entitic mass] 26.6 pg Normal 25.9-34.0 [facility] Comment on above: Performed By: #### C BC #### [facility] [address] [address] [address] Bakari Sullivan MCHC (RBC) [Mass/Vol] 33.2 g/dL Normal 29.9-35.2 [facility] Comment on above: Performed By: #### C BC #### [facility] [address] [place] [address] Dr. Bakari Sullivan MCV (RBC) [Entitic vol] 80.1 fL Normal 80.0-94.0 [facility] Comment on above: Performed By: #### C BC #### [facility] [address] [place] [address] Dr. Bakari Sullivan MONO # 0.5 103/ul Normal 0.3-0.8 [facility] Comment on above: Performed By: #### C BC #### [facility] [address] [place] [address] Dr. Bakari Sullivan Monocytes/100 WBC (Bld) 8.7 % Normal 1.7-12.0 [facility] Comment on above: Performed By: #### C BC #### [facility] [address] [place] [address] Dr. Bakari Sullivan NEUT # 3.5 103/ul Normal 1.4-6.5 [facility] Comment on above: Performed By: #### C BC #### [facility] [address] [place] [address] Dr. Bakari Sullivan Neutrophils/100 WBC (Bld) 56.1 % Normal 43.0-75.0 [facility] Comment on above: Performed By: #### C BC #### [facility] [address] [place] [address] Dr. Bakari Sullivan Platelet mean volume (Bld) [Entitic vol] 9.8 fL Normal 9.5-13.5 [facility] Comment on above: Performed By: #### C BC #### [facility] [address] [place] [address] Dr. Bakari Sullivan PLT 214 103/ul Normal 150-450 [facility] Comment on above: Performed By: #### C BC #### [facility] [address] [place] [address] Dr. Bakari Sullivan RBC 5.64 106/ul Normal 4.70-6.10 [facility] Comment on above: Performed By: #### C BC #### [facility] [address] [place] [address] Dr. Bakari Sullivan WBC 6.2 103/ul Normal 4.0-11.0 [facility] Comment on above: Performed By: #### C BC #### [facility] [address] [place] [address] Dr. Bakari Sullivan GLYCOHEMOGLOBIN A1Con 2022 ADA RECOMMENDATION SEE BELOW Normal [facility] Comment on above: Result Comment: ADA RECOMMENDED LIMIT 4.0 - 6.0 ADA THERAPEUTIC TARGET < 7.0 ACTION SUGGESTED > 7.0 Performed By: #### A 1C #### [facility] [address] [place] [address] Dr. Bakari Sullivan Glucose [Mass/Vol] 183 mg/dL Normal [facility] Comment on above: Performed By: #### A 1C #### [facility] [address] [place] [address] Dr. Bakari Sullivan HbA1c (Bld) [Mass fraction] 8.0 % Critically high 4.5-6.2 [facility] Comment on above: Performed By: #### A 1C #### [facility] [address] [place] [address] Dr. Bakari Sullivan LIPID PROFILEon 03-18-2023 CHOL-HDL RATIO NORM SEE BELOW Normal [facility] Comment on above: Result Comment: 3.3 - 4.4 LOW RISK 4.4 - 7.1 AVERAGE RISK 7.1 - 11.0 MODERATE RISK >11.0 HIGH RISK Performed By: #### C BC #### [facility] [address] [address] [address] Bakari Sullivan Cholesterol [Mass/Vol] 128 mg/dL Normal <=200 [facility] Comment on above: Performed By: #### C BC #### [facility] [address] [address] [address] Bakari Sullivan Cholesterol in HDL [Mass/Vol] 53 mg/dL Normal 40-60 [facility] Comment on above: Performed By: #### C BC #### [facility] [address] [address] [address] Bakari Sullivan Cholesterol in LDL [Mass/Vol] 61.4 mg/dL Normal [facility] Comment on above: Performed By: #### C BC #### [facility] [address] [address] [address] Bakari Sullivan Cholesterol.total/Ch olesterol in HDL [Mass ratio] 2.4 {ratio} Normal [facility] Comment on above: Performed By: #### C BC #### [facility] [address] [address] [address] Bakari Sullivan HDL NORMAL > or = 60 mg/dl - LOW CARDIOVASCULAR RISK <40 mg/dl - HIGH CARDIOVASCULAR RISK Normal [facility] Comment on above: Performed By: #### C BC #### [facility] [address] [address] [address] Bakari Sullivan LDL CALC NORMAL SEE BELOW Normal [facility] Comment on above: Result Comment: <100 mg/dl OPTIMAL 100 - 129 mg/dl NEAR OR ABOVE OPTIMAL 130 - 159 mg/dl BORDERLINE HIGH 160 - 189 mg/dl HIGH >190 mg/dl VERY HIGH Performed By: #### C BC #### [facility] [address] [address] [address] Bakari Sullivan Triglyceride [Mass/Vol] 68 mg/dL Normal <=150 [facility] Comment on above: Performed By: #### C BC #### [facility] [address] [address] [address] Bakari Sullivan VLDL CALC 13.6 mg/dL Normal [facility] Comment on above: Performed By: #### C BC #### [facility] [address] [place] [address] Dr. Bakari Sullivan LIVER PROFILEon 03-18-2023 Albumin [Mass/Vol] 3.5 g/dL Normal 3.4-5.0 [facility] Comment on above: Performed By: #### C BC #### [facility] [address] [place] [address] Dr. Bakari Sullivan Albumin/Globulin [Mass ratio] 0.9 {ratio} Normal [facility] Comment on above: Performed By: #### C BC #### [facility] [address] [place] [address] Dr. Bakari Sullivan ALP [Catalytic activity/Vol] 65 U/L Normal 46-116 [facility] Comment on above: Performed By: #### C BC #### [facility] [address] [place] [address] Dr. Bakari Sullivan ALT [Catalytic activity/Vol] 26 U/L Normal 16-63 [facility] Comment on above: Performed By: #### C BC #### [facility] [address] [place] [address] Dr. Bakari Sullivan AST [Catalytic activity/Vol] 17 U/L Normal 15-37 [facility] Comment on above: Performed By: #### C BC #### [facility] [address] [place] [address] Dr. Bakari Sullivan BILI, CONJUGATED 0.2 mg/dL Normal 0.0-0.2 [facility] Comment on above: Performed By: #### C BC #### [facility] [address] [place] [address] Dr. Bakari Sullivan Bilirubin [Mass/Vol] 1.1 mg/dL Critically high 0.2-1.0 [facility] Comment on above: Performed By: #### C BC #### [facility] [address] [place] [address] Dr. Bakari Sullivan Globulin (S) [Mass/Vol] 3.8 g/dL Normal [facility] Comment on above: Performed By: #### C BC #### [facility] [address] [place], [place] [id number] Dr. Bakari Sullivan Protein [Mass/Vol] 7.3 g/dL Normal 6.4-8.2 [facility] Comment on above: Performed By: #### C BC #### [facility] [address] [place] [address] Dr. Bakari Sullivan PROF CHEM 8 (BAS METB)on Anion gap [Moles/Vol] 8.4 mmol/L Normal [facility] Comment on above: Performed By: #### C BC #### [facility] [address] [place] [address] Dr. Bakari Sullivan Calcium [Mass/Vol] 9.1 mg/dL Normal 8.5-10.1 [facility] Comment on above: Performed By: #### C BC #### [facility] [address] [place] [address] Dr. Bakari Sullivan Chloride [Moles/Vol] 103 mmol/L Normal 98-107 [facility] Comment on above: Performed By: #### C BC #### [facility] [address] [place] [address] Dr. Bakari Sullivan CO2 [Moles/Vol] 28.8 mmol/L Normal 21.0-32.0 [facility] Comment on above: Performed By: #### C BC #### [facility] [address] [place] [address] Dr. Bakari Sullivan Creatinine [Mass/Vol] 0.95 mg/dL Normal 0.70-1.30 [facility] Comment on above: Performed By: #### C BC #### [facility] [address] [place] [address] Dr. Bakari Sullivan EGFR-AF THAI >60 Normal >=60 [facility] Comment on above: Performed By: #### C BC #### [facility] [address] [place] [address] Dr. Bakari Sullivan EGFR-NON AF THAI >60 Normal >=60 [facility] Comment on above: Performed By: #### C BC #### [facility] [address] [place] [address] Dr. Bakari Sullivan Glucose [Mass/Vol] 230 mg/dL Critically high 74-106 [facility] Comment on above: Performed By: #### C BC #### [facility] [address] [address] [address] Bakari Sullivan Potassium [Moles/Vol] 4.2 mmol/L Normal 3.5-5.1 [facility] Comment on above: Performed By: #### C BC #### [facility] [address] [address] [address] Bakari Sullivan Sodium [Moles/Vol] 136 mmol/L Normal 136-145 [facility] Comment on above: Performed By: #### C BC #### [facility] [address] [address] [address] Bakari Sullivan Urea nitrogen [Mass/Vol] 16.0 mg/dL Normal 7.0-18.0 [facility] Comment on above: Performed By: #### C BC #### [facility] [address] [address] [address] Bakari Sullivan Urea nitrogen/Creatinine [Mass ratio] 16.8 mg/mg Normal [facility] Comment on above: Performed By: #### C BC #### [facility] [address] [address] [address] Bakari Sullivan TSHon 03-18-2023 TSH 2.528 uIU/mL Normal 0.358-3.740 [facility] Comment on above: Performed By: #### C BC #### [facility] [address] [address] [address] Bakari Sullivan MICROALBUMIN URINEon 022 Albumin, Urine <3.0 Normal Not Estab. [facility] Comment on above: Result Comment: Ve rified by repeat analysis Performed By: #### M ALBLC #### [facility] [address] [place] [address] Dr. Bakari Sullivan TESTOSTERONE, TOTALon 2021 Testosterone [Mass/Vol] 215 ng/dL Critically low 264-916 [facility] Comment on above: Result Comment: Adul t male reference interval is based on a population of healthy nonobese males (BMI <30) between 19 and 39 years old. Keyona, et.al. JCEM 2017,102;6928-4869. PMID: [id number]. Performed By: #### T ESTTOT #### [facility] [address] [address] [address] Bakari Sullivan VIT D 25-OH LABCORPon 2021 Vitamin D, 25-Hydroxy 36.7 ng/mL Normal 30.0-100.0 [facility] Comment on above: Result Comment: Concepcion min D deficiency has been defined by the [place] [employer] and an Endocrine Society practice guideline as a level of serum 25-OH vitamin D less than 20 ng/mL (1,2). The Endocrine Society went on to further define vitamin D insufficiency as a level between 21 and 29 ng/mL (2). 1. IOM ([place] [employer]). 2010. Dietary reference intakes for calcium and D. Richard [place]: The National Academies Press. 2. Janet MF, Nancy NC, [place] LERMA, et al. Evaluation, treatment, and prevention of vitamin D deficiency: an Endocrine Society clinical practice guideline. JCEM. 2010; 96(7):1911-30. Performed By: #### V ITADLC #### [facility] [address] [place] [address] Dr. Bakari Sullivan CBC AUTO DIFFon 07-12-2022 BASO # 0.1 103/ul Normal 0.0-0.1 [facility] Comment on above: Performed By: #### C BC #### [facility] [address] [place] [address] Dr. Bakari Sullivan Basophils/100 WBC (Bld) 0.9 % Normal 0.2-2.0 [facility] Comment on above: Performed By: #### C BC #### [facility] [address] [place] [address] Dr. Bakari Sullivan EO # 0.1 103/ul Normal 0.0-0.7 [facility] Comment on above: Performed By: #### C BC #### [facility] [address] [place] [address] Dr. Bakari Sullivan Eosinophils/100 WBC (Bld) 1.6 % Normal 0.9-7.0 [facility] Comment on above: Performed By: #### C BC #### [facility] [address] [place] [address] Dr. Bakari Sullivan Erythrocyte distribution width (RBC) [Ratio] 14.5 % Normal 11.0-15.0 [facility] Comment on above: Performed By: #### C BC #### [facility] [address] [place] [address] Dr. Bakari Sullivan Hematocrit (Bld) [Volume fraction] 47.5 % Normal 42.0-54.0 [facility] Comment on above: Performed By: #### C BC #### [facility] [address] [place] [address] Dr. Bakari Sullivan Hemoglobin (Bld) [Mass/Vol] 15.8 g/dL Normal 14.0-18.0 [facility] Comment on above: Performed By: #### C BC #### [facility] [address] [place] [address] Dr. Bakari Sullivan IG # 0.02 10e3/ul Normal 0.00-0.03 [facility] Comment on above: Performed By: #### C BC #### [facility] [address] [place] [address] Dr. Bakari Sullivan IG % 0.3 % Normal 0.0-0.5 [facility] Comment on above: Performed By: #### C BC #### [facility] [address] [place] [address] Dr. Bakari Sullivan LYMPH # 1.9 103/ul Normal 1.2-3.8 [facility] Comment on above: Performed By: #### C BC #### [facility] [address] [place] [address] Dr. Bakari Sullivan Lymphocytes/100 WBC (Bld) 27.9 % Normal 20.5-60.0 [facility] Comment on above: Performed By: #### C BC #### [facility] [address] [place] [address] Dr. Bakari Sullivan MANUAL DIFF REQ NO Normal [facility] Comment on above: Performed By: #### C BC #### [facility] [address] [place] [address] Dr. Bakari Sullivan MCH (RBC) [Entitic mass] 27.1 pg Normal 25.9-34.0 [facility] Comment on above: Performed By: #### C BC #### [facility] [address] [place] [address] Dr. Bakari Sullivan MCHC (RBC) [Mass/Vol] 33.3 g/dL Normal 29.9-35.2 [facility] Comment on above: Performed By: #### C BC #### [facility] [address] [place] [address] Dr. Bakari Sullivan MCV (RBC) [Entitic vol] 81.5 fL Normal 80.0-94.0 [facility] Comment on above: Performed By: #### C BC #### [facility] [address] [place] [address] Dr. Bakari Sullivan MONO # 0.6 103/ul Normal 0.3-0.8 [facility] Comment on above: Performed By: #### C BC #### [facility] [address] [place] [address] Dr. Bakari Sullivan Monocytes/100 WBC (Bld) 8.4 % Normal 1.7-12.0 [facility] Comment on above: Performed By: #### C BC #### [facility] [address] [place] [address] Dr. Bakari Sullivan NEUT # 4.2 103/ul Normal 1.4-6.5 [facility] Comment on above: Performed By: #### C BC #### [facility] [address] [place] [address] Dr. Bakari Sullivan Neutrophils/100 WBC (Bld) 60.9 % Normal 43.0-75.0 [facility] Comment on above: Performed By: #### C BC #### [facility] [address] [place] [address] Dr. Bakari Sullivan Platelet mean volume (Bld) [Entitic vol] 10.3 fL Normal 9.5-13.5 [facility] Comment on above: Performed By: #### C BC #### [facility] [address] [place] [address] Dr. Bakari Sullivan PLT 237 103/ul Normal 150-450 [facility] Comment on above: Performed By: #### C BC #### [facility] [address] [place] [address] Dr. Bakari Sullivan RBC 5.83 106/ul Normal 4.70-6.10 [facility] Comment on above: Performed By: #### C BC #### [facility] [address] [place] [address] Dr. Bakari Sullivan WBC 6.9 103/ul Normal 4.0-11.0 [facility] Comment on above: Performed By: #### C BC #### [facility] [address] [place] [address] Dr. Bakari Sullivan GLYCOHEMOGLOBIN A1Con 2021 ADA RECOMMENDATION SEE BELOW Normal [facility] Comment on above: Result Comment: ADA RECOMMENDED LIMIT 4.0 - 6.0 ADA THERAPEUTIC TARGET < 7.0 ACTION SUGGESTED > 7.0 Performed By: #### C BC #### [facility] [address] [place] [address] Dr. Bakari Sullivan Glucose [Mass/Vol] 143 mg/dL Normal [facility] Comment on above: Performed By: #### C BC #### [facility] [address] [place] [address] Dr. Bakari Sullivan HbA1c (Bld) [Mass fraction] 6.6 % Critically high 4.5-6.2 [facility] Comment on above: Performed By: #### C BC #### [facility] [address] [place] [address] Dr. Bakari Sullivan LIPID PROFILEon 07-12-2022 CHOL-HDL RATIO NORM SEE BELOW Normal [facility] Comment on above: Result Comment: 3.3 - 4.4 LOW RISK 4.4 - 7.1 AVERAGE RISK 7.1 - 11.0 MODERATE RISK >11.0 HIGH RISK Performed By: #### T SH, LIPID, LIVER, BMP #### [facility] [address] [address] [address] Bakari Sullivan Cholesterol [Mass/Vol] 140 mg/dL Normal <=200 [facility] Comment on above: Performed By: #### T SH, LIPID, LIVER, BMP #### [facility] [address] [address] [address] Bakari Sullivan Cholesterol in HDL [Mass/Vol] 55 mg/dL Normal 40-60 [facility] Comment on above: Performed By: #### T SH, LIPID, LIVER, BMP #### [facility] [address] [address] [address] Bakari Sullivan Cholesterol in LDL [Mass/Vol] 63.8 mg/dL Normal [facility] Comment on above: Performed By: #### T SH, LIPID, LIVER, BMP #### [facility] [address] [address] [address] Bakari Sullivan Cholesterol.total/Ch olesterol in HDL [Mass ratio] 2.5 {ratio} Normal [facility] Comment on above: Performed By: #### T SH, LIPID, LIVER, BMP #### [facility] [address] [address] [address] Bakari Sullivan HDL NORMAL > or = 60 mg/dl - LOW CARDIOVASCULAR RISK <40 mg/dl - HIGH CARDIOVASCULAR RISK Normal [facility] Comment on above: Performed By: #### T SH, LIPID, LIVER, BMP #### [facility] [address] [address] [address] Bakari Sullivan LDL CALC NORMAL SEE BELOW Normal [facility] Comment on above: Result Comment: <100 mg/dl OPTIMAL 100 - 129 mg/dl NEAR OR ABOVE OPTIMAL 130 - 159 mg/dl BORDERLINE HIGH 160 - 189 mg/dl HIGH >190 mg/dl VERY HIGH Performed By: #### T SH, LIPID, LIVER, BMP #### [facility] [address] [address] [address] Bakari Sullivan Triglyceride [Mass/Vol] 106 mg/dL Normal <=150 [facility] Comment on above: Performed By: #### T SH, LIPID, LIVER, BMP #### [facility] [address] [address] [address] Bakari Sullivan VLDL CALC 21.2 mg/dL Normal [facility] Comment on above: Performed By: #### T SH, LIPID, LIVER, BMP #### [facility] [address] [place] [address] Dr. Bakari Sullivan LIVER PROFILEon 07-12-2022 Albumin [Mass/Vol] 4.1 g/dL Normal 3.4-5.0 [facility] Comment on above: Performed By: #### T SH, LIPID, LIVER, BMP #### [facility] [address] [place] [address] Dr. Bakari Sullivan Albumin/Globulin [Mass ratio] 1.1 {ratio} Normal [facility] Comment on above: Performed By: #### T SH, LIPID, LIVER, BMP #### [facility] [address] [place] [address] Dr. Bakari Sullivan ALP [Catalytic activity/Vol] 73 U/L Normal 46-116 [facility] Comment on above: Performed By: #### T SH, LIPID, LIVER, BMP #### [facility] [address] [place] [address] Dr. Bakari Sullivan ALT [Catalytic activity/Vol] 21 U/L Normal 16-63 [facility] Comment on above: Performed By: #### T SH, LIPID, LIVER, BMP #### [facility] [address] [place] [address] Dr. Bakari Sullivan AST [Catalytic activity/Vol] 17 U/L Normal 15-37 [facility] Comment on above: Performed By: #### T SH, LIPID, LIVER, BMP #### [facility] [address] [place] [address] Dr. Bakari Sullivan BILI, CONJUGATED 0.3 mg/dL Critically high 0.0-0.2 [facility] Comment on above: Performed By: #### T SH, LIPID, LIVER, BMP #### [facility] [address] [place] [address] Dr. Bakari Sullivan Bilirubin [Mass/Vol] 1.6 mg/dL Critically high 0.2-1.0 [facility] Comment on above: Performed By: #### T SH, LIPID, LIVER, BMP #### [facility] [address] [address] [address] Bakari Sullivan Globulin (S) [Mass/Vol] 3.8 g/dL Normal [facility] Comment on above: Performed By: #### T SH, LIPID, LIVER, BMP #### [facility] [address] [address] [address] Bakari Sullivan Protein [Mass/Vol] 7.9 g/dL Normal 6.4-8.2 [facility] Comment on above: Performed By: #### T SH, LIPID, LIVER, BMP #### [facility] [address] [place] [address] Dr. Bakari Sullivan PROF CHEM 8 (BAS METB)on Anion gap [Moles/Vol] 13.0 mmol/L Normal [facility] Comment on above: Performed By: #### T SH, LIPID, LIVER, BMP #### [facility] [address] [place] [address] Dr. Bakari Sullivan Calcium [Mass/Vol] 9.3 mg/dL Normal 8.5-10.1 [facility] Comment on above: Performed By: #### T SH, LIPID, LIVER, BMP #### [facility] [address] [address] [address] Bakari Sullivan Chloride [Moles/Vol] 101 mmol/L Normal 98-107 [facility] Comment on above: Performed By: #### T SH, LIPID, LIVER, BMP #### [facility] [address] [address] [address] Bakari Sullivan CO2 [Moles/Vol] 28.3 mmol/L Normal 21.0-32.0 [facility] Comment on above: Performed By: #### T SH, LIPID, LIVER, BMP #### [facility] [address] [address] [address] Bakari Sullivan Creatinine [Mass/Vol] 0.87 mg/dL Normal 0.70-1.30 [facility] Comment on above: Performed By: #### T SH, LIPID, LIVER, BMP #### [facility] [address] [place] [address] Dr. Bakari Sullivan EGFR-AF THAI >60 Normal >=60 [facility] Comment on above: Performed By: #### T SH, LIPID, LIVER, BMP #### [facility] [address] [address] [address] Bakari Sullivan EGFR-NON AF THAI >60 Normal >=60 [facility] Comment on above: Performed By: #### T SH, LIPID, LIVER, BMP #### [facility] [address] [place] [address] Dr. Bakari Sullivan Glucose [Mass/Vol] 133 mg/dL Critically high 74-106 [facility] Comment on above: Performed By: #### T SH, LIPID, LIVER, BMP #### [facility] [address] [place] [address] Dr. Bakari Sullivan Potassium [Moles/Vol] 4.3 mmol/L Normal 3.5-5.1 [facility] Comment on above: Performed By: #### T SH, LIPID, LIVER, BMP #### [facility] [address] [place] [address] Dr. Bakari Sullivan Sodium [Moles/Vol] 138 mmol/L Normal 136-145 [facility] Comment on above: Performed By: #### T SH, LIPID, LIVER, BMP #### [facility] [address] [place] [address] Dr. Bakari Sullivan Urea nitrogen [Mass/Vol] 16.0 mg/dL Normal 7.0-18.0 [facility] Comment on above: Performed By: #### T SH, LIPID, LIVER, BMP #### [facility] [address] [place] [address] Dr. Bakari Sullivan Urea nitrogen/Creatinine [Mass ratio] 18.4 mg/mg Normal [facility] Comment on above: Performed By: #### T SH, LIPID, LIVER, BMP #### [facility] [address] [place] [address] Dr. Bakari Sullivan TSHon 07-12-2022 TSH 2.381 uIU/mL Normal 0.358-3.740 [facility] Comment on above: Performed By: #### T SH, LIPID, LIVER, BMP #### [facility] [address] [address] [address] Bakari Sullivan Vital Signs Date Time Vital Sign Value Performing Clinician Facility 04-22-2025 09:040 Body height 175.3 cm Willy Lobato MD Work Phone: [facility] 04-22-2025 09:19-0400 Body mass index (BMI) [Ratio] 34.7 kg/m2 Willy Lobato MD Work Phone: [facility] 04-22-2025 09:19-0400 Body temperature 97.5 [degF] Willy Lobato MD Work Phone: [facility] 04-22-2025 09:19-0400 Body weight 106.59 kg Willy Lobato MD Work Phone: [facility] 04-22-2025 09:19-0400 Diastolic blood pressure 70 mm[Hg] Willy Lobato MD Work Phone: [facility] 04-22-2025 09:19-0400 Heart rate 74 /min Wilyl Lobato MD Work Phone: [facility] 04-22-2025 09:19-0400 Respiratory rate 18 /min Willy Lobato MD Work Phone: [facility] 04-22-2025 09:19-0400 SaO2% (BldA) [Mass fraction] 98 % Willy Lobato MD Work Phone: [facility] 04-22-2025 09:19-0400 Systolic blood pressure 118 mm[Hg] Willy Lobato MD Work Phone: [facility] 01-21-2025 11:18-0400 Body height 175.26 cm Simone Torre M.D. Work Phone: [facility] 01-21-2025 11:18-0400 Body mass index (BMI) [Ratio] 34.2 kg/m2 Simone Torre M.D. Work Phone: [facility] 01-21-2025 11:18-0400 Body temperature 97.9 [degF] Simone Torre M.D. Work Phone: [facility] 01-21-2025 11:18-0400 Body weight 105.23 kg Simone Torre M.D. Work Phone: [facility] 01-21-2025 11:18-0400 Diastolic blood pressure 80 mm[Hg] Simone Torre M.D. Work Phone: [facility] 01-21-2025 11:18-0400 Heart rate 84 /min Simone Torre M.D. Work Phone: [facility] 01-21-2025 11:18-0400 Respiratory rate 18 /min Simone Torre M.D. Work Phone: [facility] 01-21-2025 11:18-0400 SaO2% (BldA) [Mass fraction] 99 % Simone Torre M.D. Work Phone: [facility] 01-21-2025 11:18-0400 Systolic blood pressure 127 mm[Hg] Simone Torre M.D. Work Phone: [facility] 10-23-2024 09:18-0500 Body height 175.3 cm Willy Lobato MD Work Phone: [facility] 10-23-2024 09:18-0500 Body mass index (BMI) [Ratio] 34.7 kg/m2 Willy Lobato MD Work Phone: [facility] 10-23-2024 09:18-0500 Body temperature 97.11 [degF] Willy Lobato MD Work Phone: [facility] 10-23-2024 09:18-0500 Body weight 106.59 kg Willy Lobato MD Work Phone: [facility] 10-23-2024 09:18-0500 Diastolic blood pressure 66 mm[Hg] Willy Lobato MD Work Phone: [facility] 10-23-2024 09:18-0500 Heart rate 75 /min Willy Lobato MD Work Phone: [facility] 10-23-2024 09:18-0500 Respiratory rate 18 /min Willy Lobato MD Work Phone: [facility] 10-23-2024 09:18-0500 SaO2% (BldA) [Mass fraction] 99 % Willy Lobato MD Work Phone: [facility] 10-23-2024 09:18-0500 Systolic blood pressure 116 mm[Hg] Willy Lobato MD Work Phone: [facility] 07-19-2024 10:18-0400 Body height 175.3 cm Willy Lobato MD Work Phone: [facility] 07-19-2024 10:18-0400 Body mass index (BMI) [Ratio] 35.59 kg/m2 Willy Lobato MD Work Phone: [facility] 07-19-2024 10:18-0400 Body temperature 97.11 [degF] Willy Lobato MD Work Phone: [facility] 07-19-2024 10:18-0400 Body weight 109.32 kg Willy Lobato MD Work Phone: [facility] 07-19-2024 10:18-0400 Diastolic blood pressure 66 mm[Hg] Willy Lobato MD Work Phone: [facility] 07-19-2024 10:18-0400 Heart rate 85 /min Willy Lobato MD Work Phone: [facility] 07-19-2024 10:18-0400 Respiratory rate 18 /min Willy Lobato MD Work Phone: [facility] 07-19-2024 10:18-0400 SaO2% (BldA) [Mass fraction] 98 % Willy Lobato MD Work Phone: [facility] 07-19-2024 10:18-0400 Systolic blood pressure 132 mm[Hg] Willy Lobato MD Work Phone: [facility] 07-29-2023 11:55-0400 Body height 175.26 cm Gema Kianna Other [facility] Other 07-29-2023 11:55-0400 Body mass index (BMI) [Ratio] 35.44 kg/m2 Gema Kianna Other [facility] Other 07-29-2023 11:55-0400 Body temperature 98.1 [degF] Gema Kianna Other [facility] Other 07-29-2023 11:55-0400 Body weight 108.86 kg Gema Kianna Other [facility] Other 07-29-2023 11:55-0400 Diastolic blood pressure 80 mm[Hg] Gema Kianna Other [facility] Other 07-29-2023 11:55-0400 Respiratory rate 18 /min Gema Kianna Other [facility] Other 07-29-2023 11:55-0400 SaO2% (BldA) [Mass fraction] 98 % Gema Kianna Other [facility] Other 07-29-2023 11:55-0400 Systolic blood pressure 133 mm[Hg] Gema Kianna Other [facility] Other Encounters Encounter Date Encounter Type Care Provider Facility Start: 04-22-2025 End: 04-22-2025 Bamboo flowsheet Willy Lobato MD Work Phone: [facility] Start: 04-22-2025 End: 04-22-2025 Bamboo flowsheet Willy Lobato MD Work Phone: [facility] Start: 04-22-2025 End: 04-22-2025 Patient encounter procedure Willy Lobato MD Work Phone: [facility] Start: 04-22-2025 End: 04-22-2025 Periodic preventive med est patient 40-64yrs Willy Lobato MD Work Phone: [facility] Comment on above: Annual physical exam (Primary Dx); Type 2 diabetes mellitus with hyperglycemia, without long-term current use of insulin (CMS/HCC); Benign hypertension (CMS/HCC); Class 1 obesity due to excess calories with serious comorbidity and body mass index (BMI) of 34.0 to 34.9 in adult; Chronic right shoulder pain Start: 04-22-2025 End: 04-22-2025 ambulatory WILLY LOBATO Not Available Start: 01-21-2025 End: 01-21-2025 ambulatory Simone Torre M.D. Work Phone: [facility] Work Phone: Start: 01-21-2025 End: 01-21-2025 Patient encounter procedure Simone Torre M.D. Work Phone: [facility] Work Phone: Start: 11-02-2024 End: 11-02-2024 Clinisync Result Encounter Willy Lobato MD Work Phone: [facility] Unsolicited Start: 11-02-2024 End: 11-02-2024 Clinisync Result Encounter Willy Lobato MD Work Phone: [facility] Unsolicited Start: 10-23-2024 End: 10-23-2024 Bamboo flowsheet Willy Lobato MD Work Phone: [facility] Start: 10-23-2024 End: 10-23-2024 Bamboo Mobilligyheet Willy Lobato MD Work Phone: [facility] Start: 10-23-2024 End: 10-23-2024 Office outpatient visit 25 minutes Willy Lobato MD Work Phone: [facility] Comment on above: Type 2 diabetes [...] LOBATO Not Available Start: 07-19-2024 End: 07-19-2024 Bamboo Mobilligyheet Willy Lobato MD Work Phone: [facility] Start: 07-19-2024 End: 07-19-2024 Bamboo Mobilligyheet Willy Lobato MD Work Phone: [facility] Start: 07-19-2024 End: 07-19-2024 Office outpatient visit 25 minutes Willy Lobato MD Work Phone: [facility] Comment on above: Type 2 diabetes helena itus with hyperglycemia, without long-term current use of insulin (CMS/HCC) (Primary Dx); Benign hypertension (CMS/HCC); Obesity (BMI 30-39.9); Body mass index (BMI) 36.0-36.9, adult Start: 07-19-2024 End: 07-19-2024 ambulatory WILLY LOBATO Not Available Start: 10-26-2023 Patient encounter procedure Willy Lobato MD Work Phone: [facility] Start: 07-29-2023 End: 07-29-2023 ambulatory Gema Hutchison Other [facility] Other Start: 07-29-2023 Office outpatient vi sit 15 minutes Gema Hutchison [facility] Start: 03-23-2023 Encounter for genera l adult medical examination without abnormal findings DR WILLY LOBATO [facility] Start: 03-18-2023 End: 03-19-[address] WILLY LOBATO Facility:[facility] Start: 03-18-2023 End: 03-19-2023 Encounter for general adult medical examination without abnormal findings DR WILLY LOBATO Facility:[facility] Start: 07-12-2022 End: 07-13-[address] WILLY LOBATO Facility:[facility] Start: 06-28-2004 Evaluation and management of inpatient Simone Torre M.D. Work Phone: [facility] Work Phone: Procedures Date Procedure Procedure Detail Performing Clinician Start: 11-02-2024 MLR HEMOGLOBIN A1C Willy Lobato MD Work Phone: Start: 07-12-[address] WILLY ROMO Comment on above: Performed By: #### C BC #### [facility] [address] [place] [address] Dr. Bakari Sullivan Plan of Treatment Date Care Activity Detail Author Start: 11-07-2027 Screening for malign ant neoplasm of colon [facility] Start: 01-20-2027 Glaucoma screening Diabetes: R etinopathy Screening [facility] Start: 10-22-2025 End: 10-22-2025 Patient encounter procedure 10/22/2025 7:15 AM EST Office Visit [facility] [address] [place] [id number] Willy Lobato MD [address] [place] [address] [facility] Start: 07-14-2025 Influenza vaccination Influenz a Vaccine (Season Ended) [facility] Start: 06-19-2025 Glaucoma screening Diabetes: R etinopathy Screening [facility] Start: 04-22-2025 End: 04-22-2026 Basic metabolic 1998 panel - Serum or Plasma Basic metabolic panel Lab Routine Annual physical exam Expected: 04/22/2025 (Approximate), Expires: 04/22/2026 [facility] Comment on above: Expected: 04/22/2025 (Approximate), Expires: 04/22/2026 Start: 04-22-2025 End: 04-22-2026 CBC W Auto Differential panel - Blood CBC and differential Lab Routine Annual physical exam Expected: 04/22/2025 (Approximate), Expires: 04/22/2026 [facility] Comment on above: Expected: 04/22/2025 (Approximate), Expires: 04/22/2026 Start: 04-22-2025 End: 04-22-2026 Hemoglobin A1c/Hemoglobin.total in Blood Hemoglobin A1c Lab Routine Annual physical exam Expected: 04/22/2025 (Approximate), Expires: 04/22/2026 [facility] Comment on above: Expected: 04/22/2025 (Approximate), Expires: 04/22/2026 Start: 04-22-2025 End: 04-22-2026 Hepatic function 2000 panel - Serum or Plasma Hepatic function panel Lab Routine Annual physical exam Expected: 04/22/2025 (Approximate), Expires: 04/22/2026 [facility] Comment on above: Expected: 04/22/2025 (Approximate), Expires: 04/22/2026 Start: 04-22-2025 End: 04-22-2026 Lipid 1996 panel - Serum or Plasma Lipid panel Lab Routine Annual physical exam Expected: 04/22/2025 (Approximate), Expires: 04/22/2026 [facility] Comment on above: Expected: 04/22/2025 (Approximate), Expires: 04/22/2026 Start: 04-22-2025 End: 04-22-2026 Microalbumin/Creatinine panel in random Urine Microalbumin / creatinine, urine ratio Lab Routine Annual physical exam Expected: 04/22/2025 (Approximate), Expires: 04/22/2026 [facility] Work Phone: Comment on above: Expected: 04/22/2025 (Approximate), Expires: 04/22/2026 Start: 04-22-2025 End: 04-22-2026 Prostate specific Ag [Mass/volume] in Serum or Plasma PSA Lab Routine Annual physical exam Expected: 04/22/2025 (Approximate), Expires: 04/22/2026 [facility] Comment on above: Expected: 04/22/2025 (Approximate), Expires: 04/22/2026 Start: 04-22-2025 End: 04-22-2026 Thyrotropin [Units/volume] in Serum or Plasma TSH Lab Routine Annual physical exam Expected: 04/22/2025 (Approximate), Expires: 04/22/2026 [facility] Comment on above: Expected: 04/22/2025 (Approximate), Expires: 04/22/2026 Start: 04-22-2025 End: 04-22-2025 Patient encounter procedure VIDAL SAMANIEGO Comment on above: Arrived Start: 11-15-2024 Hemoglobin A1c measurement Diabetes: Hemoglobin A1C [facility] Start: 11-08-2024 Urine screening for protein Diabetes: Urine Protein Screening [facility] Start: 10-23-2024 End: 10-23-2025 Hemoglobin A1c/Hemoglobin.total in Blood Hemoglobin A1c Lab Routine Type 2 diabetes mellitus with hyperglycemia, without long-term current use of insulin ([facility]) Expected: 10/23/2024 (Approximate), Expires: 10/23/2025 [facility] Work Phone: Comment on above: Expected: 10/23/2024 (Approximate), Expires: 10/23/2025 Start: 10-23-2024 End: 10-23-2025 Noninvasive colorectal cancer DNA and occult blood screening [Presence] in Stool Cologuard colon cancer screening Lab Routine Colon cancer screening Expected: 10/23/2024 (Approximate), Expires: 10/23/2025 [facility] Comment on above: Expected: 10/23/2024 (Approximate), Expires: 10/23/2025 Start: 10-23-2024 End: 10-23-2024 Patient encounter procedure [facility] Comment on above: Arrived Start: 07-28-2024 Screening for malign ant neoplasm of colon [facility] Start: 07-19-2024 End: 07-19-2024 Patient encounter procedure 07/19/2024 10:15 AM EDT Office Visit [facility]AL SPENCER [address] [place] [phone] Willy Lobato MD [address] [place] [address] Arrived [facility] Comment on above: Arrived Start: 07-14-2024 Influenza vaccination Influenza Vacc ine (#1) [facility] Start: 10-06-2018 Hemoglobin A1c measurement Diabetes: Hemoglobin A1C [facility] Start: 1979 Glaucoma screening Diabetes: R etinopathy Screening [facility] Start: 1969 Screening for malign ant neoplasm of colon [facility] Payers Date Payer Category Payer [facility] BCBS Memb er Subscriber Plan / Payer (Effective 2023-Present) Name: Reba Sandro A Relation to Subscriber: Self Name: Sandro Britton Payer ID: Not on file Type: Not on file Address: [address] [place] [id number] 2023 Unknown BCBS BCBS xxxxxx [id number] 2023-Present [phone] [address] [place] [id number] 1969 Unknown [id number] 1969 Unknown [id number] 1969 Unknown [id number] 1969 Unknown [id number] 1969 Unknown [id number] 1959 Unknown [id number] Social History Date Type Detail Facility Unknown if ever smoked [facility] Other Start: 04-16-2024 End: 04-22-2025 Sex Assigned At [facility] Start: 11-20-2023 Tobacco smoking status MOIS Ex-smoker [facility] History of tobacco use Current smoker [facility] History of tobacco use Cigarette Smoker [facility] Start: 11-20-2023 Tobacco use and exposure Smokeless tobacco non-user [facility] Start: 07-19-2024 End: 04-22-2025 Alcoholic beverage intake Current drinker of alcohol (finding) [facility] Start: 04-16-2024 End: 04-22-2025 History of Social function [facility] Do you belong to any clubs or organizations such as yazidism groups, unions, [employer] or athletic groups, or school groups? No [...] [OSQ] Rather much [facility] (I/We) worried bret er (my/our) food would run out before (I/we) got money to buy more. Never true [facility] Start: 11-20-2023 Alcohol Comment caffeine intake : 1-2 cups per day [facility] Start: 1970 Sex assigned at Male [facility] Start: 10-22-2023 Gender identity Identifies as male gender (finding) [facility] Start: 10-22-2023 Sexual orientation Heterosexual (finding) [facility] Start: 01-21-2025 Tobacco smoking status NHIS Never smoked tobacco (finding) [facility] Start: 01-21-2025 Sex Male (finding) [facility] History of Present illness Narrative 04-22-2025 Willy Lobato MD - 04/22/2025 10:02 AM Mirta Lobato MD - 04/22/2025 10:02 AM Mirta Lobato MD - 04/22/2025 10:02 AM Mirta Lobato MD - 04/22/2025 10:02 AM EDT Note Date & Type Note Facility 04-22-2025 History of Presen t illness Narrative Associated Problem(s): Type 2 diabetes mellitus with hyperglycemia, without long-term current use of insulin (CMS/HCC) BS controlled and due for A1C. Weight unchanged and increase ozempic. Stop glipizide. Stick to ADA diet and limit carbs. Associated Problem(s): Class 1 obesity due to excess calories with serious comorbidity and body mass index (BMI) of 34.0 to 34.9 in adult Weight loss indicated. Associated Problem(s): Chronic right shoulder pain Continued pain and start PT. Refer to ortho for possible injection. Associated Problem(s): Benign hypertension (CMS/HCC) BP controlled and monitor PRN. Associated Problem(s): Annual physical exam Due for labs. Discussed proper diet and regular aerobic exercise. Need aerobic exercise 5-6 days a week for 30 minutes at a time. Smaller portions and limit total calories. Cologuard normal in October 2024. Tetanus every 10 years. Advised not to smoke. Images from the original note were not included. Subjective Patient ID: Francisco Britton is a 54 y.o. male who presents for Follow-up (6m) and Shoulder Injury (Right shoulder and arm). Presents for annual PE. Weight down 11 pounds in past year. Taking ozempic and not eating as much. Tries to walk and stay active. Tries to watch diet and eat healthy. Increased fruits and vegetables. Smaller portions and limits snacking. Tries to limit total daily calories. Due for labs. BS improved and last A1C 5.6. Notice occasional low BS since increased ozempic but decreasing glipizide helped. Checking BP PRN and typically controlled. BP normal today. Taking medication daily and tolerating without side effects. Right shoulder pain unchanged. Continues to have pain in top shoulder and up towards neck. Full ROM but pain to raise arm. Not able to sleep on side. Pain to raise arm or lift. Seen by chiropractor and x-ray obtained. Told nothing more to be done from chiropractor standpoint. Review of Systems Constitutional: Negative for fatigue. [...] There is no guarding or rebound. Musculoskeletal: General: Normal range of motion. Left lower leg: No edema. Neurological: General: No focal deficit present. Mental Status: He is alert. Cranial Nerves: No cranial nerve deficit. Deep Tendon Reflexes: Reflexes normal. Assessment/Plan Problem List Items Addressed This Visit Benign hypertension ([facility]) BP controlled and monitor PRN. Type 2 diabetes mellitus with hyperglycemia, without long-term current use of insulin ([facility]) BS controlled and due for A1C. Weight unchanged and increase ozempic. Stop glipizide. Stick to ADA diet and limit carbs. Relevant Medications Semaglutide, 2 MG/DOSE, (Ozempic, 2 MG/DOSE,) 8 MG/3ML solution pen-injector Annual physical exam - Primary Due for labs. Discussed proper diet and regular aerobic exercise. Need aerobic exercise 5-6 days a week for 30 minutes at a time. Smaller portions and limit total calories. Cologuard normal in October 2024. Tetanus every 10 years. Advised not to smoke. Relevant Orders Microalbumin / creatinine, urine ratio Hemoglobin A1c Basic metabolic panel CBC and differential Hepatic function panel Lipid panel PSA TSH Class 1 obesity due to excess calories with serious comorbidity and body mass index (BMI) of 34.0 to 34.9 in adult Weight loss indicated. Chronic right shoulder pain Continued pain and start PT. Refer to ortho for possible injection. Relevant Orders Ambulatory referral to Orthopaedic Surgery Ambulatory referral to Physical Therapy documented in this encounter [facility] History [...] hyperglycemia, without long-term current use of insulin ([facility]) BS controlled and due for A1C. Stick [...] List Items Addressed This Visit Benign hypertension ([facility]/HCC) BP controlled and monitor PRN. Type 2 diabetes mellitus with hyperglycemia, without long-term current use of insulin (CMS/HCC) - Primary BS controlled and due for [...] without long-term current use of insulin (CMS/HCC) BS improved and starting to go low. [...] without long-term current use of insulin (CMS/HCC) - Primary BS improved and starting to go low. Decrease glipizide to once a day and take with food. Increase ozempic. Likely will be able to stop glipizide in future. Relevant Medications glipiZIDE (Glucotrol) 10 MG tablet semaglutide (Ozempic, 1 MG/DOSE,) 4 MG/3ML solution pen-injector Obesity (BMI 30-39.9) Weight down 5 pounds. documented in this encounter [facility] Evaluation note 07-29-2023 Note Date & [...] no improvement in 2 to 3 days [facility] Other Evaluation note Note Date & Type Note Facility Evaluation note Diagnosis Type 2 diabetes mellitus with hyperglycemia, without long-term current use of insulin (CMS/HCC)- Primary Annual physical exam Routine general medical [...] malignant neoplasms, colon documented in this encounter [facility] Evaluation note Note Date & Type Note Facility Evaluation note Diagnosis Type 2 diabetes mellitus with hyperglycemia, without long-term current use of insulin (CMS/HCC)- Primary Benign hypertension (CMS/HCC) Essential hypertension, benign Obesity (BMI 30-39.9) Body mass index (BMI) 36.0-36.9, adult documented in this encounter [facility] Evaluation note Note Date & Type Note Facility Evaluation note No assessment information [facility] Work Phone: Evaluation note Note Date & Type Note Facility Evaluation note Diagnosis Type 2 diabetes mellitus with hyperglycemia, without long-term current use of insulin (CMS/HCC)- Primary Annual physical exam Routine general medical [...] screening Special screening for malignant neoplasms, colon Annual physical exam- Primary Routine general medical examination at a health care facility Type 2 diabetes mellitus with hyperglycemia, without long-term current use of insulin (CMS/HCC) Benign hypertension (CMS/HCC) Essential hypertension, benign Class 1 obesity due to excess calories with serious comorbidity and body mass index (BMI) of 34.0 to 34.9 in adult Chronic right shoulder pain Pain in joint, shoulder region documented in this encounter [facility] History general Narrative - Reported Note Date & Type Note Facility History general Narrative - Reported Type Medical History diabetes type II Medical History factor 8 bleeding disorder Medical History Hypercholesteremia Medical History HTN (hypertension) [facility] Other Summary Purpose Family History No Family History Records Found Relationship Condition Age at Onset Recorded Date/T kenny father Hypertension Unknown Diabetes mellitus Unknown Unknown History of stroke Unknown family member Unknown mother Unknown Malignant neoplasm Unknown sister Malignant neoplasm Unknown Advance Directives No Advanced Directives Records Found Advance Directive Response Recorded Date/ Time Advance Directives No January 21 11:06am Chief Complaint and Reason for Visit Chief Complaint Admit Date ^ June 28, 2004 5: 16am sinus congestion, cough January 21, 2025 11:06am Additional Source Comments (unrecognized sect ion and content) No Status Records FoundNo Status Records Found INFORMATION SOURCE (unrecogn ized section and content) DATE CREATED AUTHOR 03/24/2023 [facility] DATE CREATED AUTHOR AUTHOR'S ORGANIZ ATION 04/23/2025 [facility] EPIC REASON FOR VISIT (unrecogniz ed section and content) Reason Comments Follow-up 3 m Shoulder Pain Right shoulder Reason Comments Follow-up 3 m Reason Comments Follow-up 6m Shoulder Injury Right shoulder and a rm Care Teams (unrecognized sec tion and content) Utility System Repairer Relationship Specialty Start Date End Date Willy Lobato MD [address] [place] [address] PCP - General Family Medicine 04/17/24 Willy Lobato MD [address] [place] [address] PCP - [employer] 08/13/24 Utility System Repairer Relationship Specialty Start Date End Date Willy Lobato MD [address] [place] [phone] PCP - General Family Medicine 04/17/24 Willy Lobato MD [address] [place] [phone] PCP - [employer] 08/13/24 Utility System Repairer Relationship Specialty Start Date End Date Willy Lobato MD [address] [place] [phone] PCP - General Family Medicine 04/17/24 Utility System Repairer Relationship Specialty Start Date End Date Willy Lobato MD [address] [place] [phone] PCP - General Family Medicine 04/17/24 Utility System Repairer Relationship Specialty Start Date End Date Willy Lobato MD [address] [place] [phone] PCP - General Family Medicine 04/17/24 Willy Lobato MD [address] [place] [phone] PCP - [employer] 08/13/24 Team Status: Active Member Role Status Dates Willy Lobato MD Primary Care Provider Active Team Status: Active Member Role Status Dates Simone Torre M.D. Attending Provider Active Start: June 28, 2004 Team Status: Inactive Member Role Status Dates Willy Lobato MD Primary Care Provider Active S tart: January 21, 2025 End: January 21, 2025 Lucy Lugo APRN Attending Provider Active Start: January 21, 2025 End: January 21, 2025 Utility System Repairer Relationship Specialty Start Date End Date Willy Lobato MD [address] [place] [address] PCP - General Family Medicine 04/17/24 Utility System Repairer Relationship Specialty Start Date End Date Willy Lobato MD [address] [place] [phone] PCP - General Family Medicine 04/17/24 Goals (unrecognized section and content) Goals may be documented in a n alternate section FOR RECORDS PERTAINING TO PATIENTS WHO ARE [...] BE BASED ON THE PRIMARY CLINICAL RECORDS. [employer] provides no warranty or guarantee of the accuracy or completeness of information in this document.
[2025-04-26 09:30] LABS: Basophils Percent Auto 0.6 % (0.2-2.0); Eosinophils Absolute Auto 0.1 10^3/uL (0.0-0.7); Eosinophils Percent Auto 1.7 % (0.9-7.0); Hematocrit 46.8 % (42.0-54.0); Immature Granulocytes Abs Auto 0.01 10^3/uL (0.00-0.03); Immature Granulocytes Pct Auto 0.2 % (0.0-0.5); Lymphocytes Absolute Auto 1.8 10^3/uL (1.2-3.8); Mean Corpuscular HGB Conc 34.2 g/dL (29.9-35.2); Mean Corpuscular Hemoglobin 27.9 pg (25.9-34.0); Mean Corpuscular Volume 81.5 fL (80.0-94.0); Mean Platelet Volume 9.5 fL (9.5-13.5); Monocytes Absolute Auto 0.6 10^3/uL (0.3-0.8); Neutrophils Absolute Auto 3.8 10^3/uL (1.4-6.5); Neutrophils Percent Auto 59.5 % (43.0-75.0); Platelet Count 245 10^3/uL (150-450); Red Blood Count 5.74 10^6/uL (4.70-6.10); Red Cell Distribution Width 13.9 % (11.0-15.0); White Blood Count 6.3 10^3/uL (4.0-11.0)
[2025-04-26 10:13] LABS: Creatinine Urine Random 170.69 mg/dL (20.00-300.00); Microalbumin Urine Random <1.3 mg/dL (<=30.0)
[2025-04-26 10:15] LABS: Estimated Average Glucose 117 mg/dL; Glycohemoglobin A1C 5.7 % (4.5-6.2)
[2025-04-26 10:26] LABS: Prostate Specific Antigen Scrn 1.35 ng/mL (<=4.00)
[2025-04-26 10:27] LABS: Alanine Aminotransferase 22 U/L (16-63); Albumin Level 3.7 g/dL (3.4-5.0); Alkaline Phosphatase 85 U/L (46-116); Anion Gap 15.5; Aspartate Amino Transferase 21 U/L (15-37); BUN Creatinine Ratio 22.1; Bilirubin Direct 0.3 mg/dL (0.0-0.2); Bilirubin Total 1.5 mg/dL (0.2-1.0); Calcium 9.3 mg/dL (8.5-10.1); Carbon Dioxide 26.7 mmol/L (21.0-32.0); Chloride 103 mmol/L (98-107); Cholesterol 120 mg/dL (<=200); Estimated GFR (African America >60 (>=60 mL/min/1.73m^2); Estimated GFR (Non-African Ame >60 (>=60 mL/min/1.73m^2); Globulin 3.8 g/dL; Glucose 119 mg/dL (74-106); HDL Cholesterol 61 mg/dL (40-60); Potassium 4.2 mmol/L (3.5-5.1); Sodium 141 mmol/L (136-145); Thyroid Stimulating Hormone 1.879 uIU/mL (0.358-3.740); Total Protein 7.5 g/dL (6.4-8.2); Triglycerides 42 mg/dL (<=150); VLDL CHOLESTEROL 8.4 mg/dL
== END 2025-04-26 09:01 | disposition home or self-care (01) ==
PROVIDERS: PCP Family Medicine; Visit Provider Family Medicine
DX: Z00.00 Encounter for general adult medical examination without abnormal findings (principal)
CPT/HCPCS: 36415; 80048; 80061; 80076; 82043; 82570; 83036; 84443; 85025; G0103

== ENCOUNTER 2025-11-01 08:56 | Outpatient (OUT) | payer BC, SELFPAY ==
--- OUTSIDE RECORDS SUMMARY | 2025-10-22 03:08 | XMS_ITS | Continuity of Care Document ---
Author Organization [facility] Address [address] [place] [address] Phone Care Team Providers Care Ore Tester Name Role Phone Simone Torre M.D. Attending Provider + Willy Gunderson MD Primary Care Provider [phone] Willy Gunderson MD Attending Provider [phone] Care Teams Patient Care Team Team Status: Active Member Role/Relationship Status Dates Willy Gunderson MD Primary Care Provider Active Visit Care Team Team Status: Active Member Role/Relationship Status Dates Simone Torre M.D. Attending Provider Active Start: June 28, 2004 Patient Care Team Team Status: Inactive Member Role/Relationship Status Dates Willy Gunderson MD Primary Care Provider Active S tart: October 22, 2025 End: October 22, 2025Marc PATRICIA Gundersonttending ProviderActiveStart: October 22, 2025 End: October 22, 2025 Chief Complaint and Reason for Visit Chief Complaint Admit Date ^ June 28, 2004 5: 16am Established Patient October 22, 2025 7:13am Reason for Visit Admit Date Benign hypertension October 22, 2025 7:13am Internal derangement of right shoulder D ec2024 7:13am Obesity October 22, 2025 7:13am Type 2 diabetes mellitus wit h hyperglycemia, without long-term current use October 22, 2025 7:13am Allergies, Adverse Reactions, Alerts Allergen Type Severity Reaction Last Updated Verified Status No Known Allergies Allergy Unknown October 22, 2025 7:25amYesActive Social History Smoking Status Status Start Date End Date Date of Observa tion Ex-smoker (finding) October 22, 2025 7:29am Observation Status Observation Response Date of Response Legal Sex Male (finding) Sex Assigned At BirthMaleJune 1969 Family History Relationship Condition Age at Onset Recorded Date/T kenny father Hypertension Unknown Diabetes mellitusUnknownDeceasedUnknownHistory of strokeUnknownfamily member DeceasedUnknownmotherDeceasedUnknownMalignant neoplasmUnknownsisterMalignant neoplasmUnknown Problems Active Problems Problem Diagnosis/Recorded Date Onset Date Stat us Benign hypertension October 22, 2025 6:49am Unknown Active Dyslipidemia October 22, 2025 6:50am Unknown A ctive Internal derangement of right shoulder October 22, 2025 7:53am Unknown Active Annual physical exam October 22, 2025 7:50am Unknow n Active Primary hypogonadism in male October 22, 2025 6:50a m Unknown Active Type 2 diabetes mellitus wit h hyperglycemia, without long-term current use of insulin October 22, 2025 6:51am Unknown Active Chronic right-sided thoracic back pain October 22, 2025 6:51am Unknown Active History of deep vein thrombo sis (DVT) of lower extremity October 22, 2025 6:50am Unknown Active Chronic right shoulder pain October 22, 2025 6:51am Unknown Active Obesity October 22, 2025 7:51am Unknown A ctive Inactive/Resolved Problems Problem Diagnosis/Recorded Date Onset Date Stat Acute viral bronchitis January 21, 2025 1:33pm Unknown Resolved Medications Medication Status Dose Units Route Directions Qty Days Refills S tart Date Stop Date End Date Reason(s) Instructions Adherence Semaglutide (Ozempic) 1 mg/d ose (4 mg/3 mL) pen injector Discontinued 1 MG SUBCUT every week 9 2024 4:58pmNov2024 2:47pmSemaglutide (Ozempic) 1 mg/dose (4 mg/3 mL) pen kfoficvcNzabez1WHHRAGLXlyuih vnag09OfzlkdoxOctober 06, 2025 2:47pmComplies with drug therapyPioglitazone 30 mg tabletActiveMGPOMarch 2024 11:00pmComplies with drug therapyLisinopril 10 mg tabletActiveMGPOMarch 2024 11:00pmComplies with drug therapyGlipizide 10 mg tabletDiscontinuedMG POMarch 2024 11:00pmDecember 2024 7:26amAtorvastatin 40 mg tablet ActiveMGPOJan 2024 11:00pmComplies with drug therapySemaglutide (Ozempic) 1 mg/dose (4 mg/3 mL) pen injectorDiscontinuedMGSUBCUTSelect [facility] 2024 11:00pmNovember 2024 4:58pmMethylprednisolone (Medrol (Cecil)) 4 mg tablets,dose klqaNpdpypcpgabv8AAmza package fmbynsxxjt913Hfbqp 2024 11:00pmDesoutheast [facility] 2024 7:27amPO PER PKG DIR for 6 daysBenzonatate 200 mg khkwujvLlbzscarvsad638FNZWYoqwm times daily as needed for gyeil09881Ombis 2024 11:00pmDehen[facility]2024 7:26amGlipizide 10 mg lqclcnLjyjggvvnxzz0RQZU October 22, 2025 7:26amDeceencompass [facility] 2024 8:00amGlipizide 5 mg tabletActive5 MGPODailySanta [facility]2024 12:00amComplies with drug therapy Vital Signs Vital Reading Result Reference Range Collection Date/Time Height 69 [in_i] October 22, 2025 7:64iqGxuuex097.76 kghenry ford [facility] hospital2024 7:29amBody Tlgmmhjmlih49.2 [degF]97.6-99.0[facility]2024 7:29amHeart Rate81 /wlw95-392 October 22, 2025 7:29amRespiratory rate16 /tel01-45Ofryysqy 10th, 2025 7:29am Oxygen saturation by Pulse rkarsxfm64 %95-1002024 7:29amBP Viwaykwa656 mm[Hg]100-1402024 7:29amBP Poplqhskz75 mm[Hg]60-100 October 22, 2025 7:29amBMI (Body Mass Index)34.7 kg/o3Xviexqlg2024 7:29am Advance Directives Advance Directive Response Recorded Date/ Time Advance Directives No January 21 025 10:06am Insurance Providers Guarantor Sandro Britton , III Address [address] [place] [address] [place] [address]Wxglzug Info.Home Phone: Coverage Status Update:2025 Payer Group Member ID Coverage Type Subscriber Relationship to Subscriber Effective Date Expiration Date Vee LATHAM Id: [id number] A Lisa , III Id: [id number] [address] [place] [address] Home Phone: Self Encounters Encounter Location(s) Arrival/Admit Date Discharge/Departure Date Discharge/Departure Disposition Provider(s) Admitted Inpatient -[address] [place] [address] June 28, 2004 5:16am SIMONE Toroed Physician/Provider Office Visit-[facility] Family [facility]2024 7:13amDeceencompass [facility] rehabilitation [facility] 2024 8:07amDischarged to home care or self care (routine discharge)Willy Gunderson MD Recent Diagnosis Onset Date Admit Date Benign hypertension Unknown October 7:13am Internal derangement of right shoulder Unknown October 22, 2025 7:13am Obesity Unknown October 22, 025 7:13am Type 2 diabetes mellitus wit h hyperglycemia, without long-term current use Unknown October 22, 2025 7:13 am Assessments Diagnosis Onset Date Resolution Status Admit Date Benign hypertension acuteDe2024 7:13amInternal derangement of right shoulderacute October 22, 2025 7:13amObesityacuteDe2024 7:13amType 2 diabetes mellitus with hyperglycemia, without long-term current useacuteOctober 22, 2025 7:13am Plan of Treatment Future Tests Future scheduled test information is unavailable Pending Tests Pending diagnostic test information is unavailable Future Visits Future appointment information is unavailable Future Procedures Procedure Name Ordered Date Scheduled Date A1C with Estimated Average Glu October 22 8:00am Future Medications Future medication information is unavailable Patient Instructions Patient instructions are unavailable
--- OUTSIDE RECORDS SUMMARY | 2025-11-01 09:01 | XMS_ITS | Clinical Summary ---
Author Organization [facility] Address [address] [place] [address] Care Team Providers Care Architect Marine Name Role Phone Willy Gunderson MD Primary Care Provider [phone] Allergies No known active allergies Medications MedicationSigDispense QuantityRefillsLast FilledStart DateEnd DateStatus aspirin 81 MG EC tablet Take 81 mg by mouth DailyActive Semaglutide, 2 MG/DOSE, (Ozempic, 2 MG/DOSE,) 8 MG/3ML solution pen-injector Indications:Type 2 diabetes mellitus with hyperglycemia, without long-term current use of insulin (HCC)Inject 2 mg under the skin 1 (one) time per week 3 mL 5Active glipiZIDE (Glucotrol) 5 MG tablet Take 5 mg by mouth in the morning and 5 mg in the evening. Take before meals. Active lisinopril 10 MG tablet Indications:Essential (primary) hypertension,Benign essential hypertensionTAKE 1 TABLET BY MOUTH EVERY DAY 90 tablet 5Active pioglitazone (Actos) 30 MG tablet Indications:Type 2 diabetes mellitus with hyperglycemia (HCC)TAKE 1 TABLET BY MOUTH EVERY DAY 90 tablet 5Active atorvastatin (Lipitor) 40 MG tablet Indications:Hyperlipidemia, unspecifiedTAKE 1 TABLET BY MOUTH EVERYDAY AT BEDTIME 90 tablet 5Active Active Problems ProblemNoted DateDiagnosed DateChronic right shoulder pain10/23/2024 Assessment & Plan (04/22/2025 10:02 AM EDT): Continued pain and start PT. Refer to ortho for possible injection. Assessment & Plan (10/23/2024 10:12 AM EST): Pain for months and likely muscular. Follow with chiropractor. Class 1 obesity due to excess calories with serious comorbidity and body mass index (BMI) of 34.0 to 34.9 in adult07/19/2024 Assessment & Plan (04/22/2025 10:02 AM EDT): Weight loss indicated. Assessment & Plan (10/23/2024 10:13 AM EST): Weight down 11 pounds. Assessment & Plan (07/19/2024 10:52 AM EDT): Weight down 5 pounds. Chronic right-sided thoracic back pain04/17/2024 Assessment & Plan (04/17/2024 7:40 AM EDT): Increased pain and likely muscular. Start robaxin PRN. Use heat and massage PRN. Benign mehdabdpkgjn36/14/2023 Assessment & Plan (04/22/2025 10:02 AM EDT): BP controlled and monitor PRN. Assessment & Plan (10/23/2024 10:12 AM EST): BP controlled and monitor PRN. Assessment & Plan (07/19/2024 10:52 AM EDT): BP controlled and monitor PRN. Assessment & Plan (04/17/2024 7:39 AM EDT): BP controlled and monitor PRN. Assessment & Plan (10/26/2023 11:36 AM EST): BP controlled and monitor PRN. Rzvyjtcislrw87/14/2023History of deep vein thrombosis (DVT) of lower extremity 10/26/2023rimary hypogonadism in male10/26/2023Type 2 diabetes mellitus with hyperglycemia, without long-term current use of ydrjfeq9810/26/2023 Assessment & Plan (04/22/2025 10:03 AM EDT): [...] ADA diet and limit carbs. Annual physical exam10/26/2023 Assessment & Plan (04/22/2025 10:02 AM EDT): [...] smoke. Discussed daily Aspirin therapy. Resolved Problems ProblemNoted DateDiagnosed DateResolved DateRight-sided low back pain without aclthlam98/03/2024Vitamin D paeinakajt92/14/202306/03/2024 Encounters DateTypeDepartmentCare MwnsNxphnpbvynu65/14/2025 8:15 AM EDTOffice Visit [facility] [address] [place] [address] Jr. Isreal Valderrama, DO Internal derangement of right shoulder (Primary Dx); Chronic right shoulder pain08/26/2025amboo flowsheet [facility] [address] [place] [address] Jr. Isreal Valderrama, DO 08/26/20258166Zknfej10/08/2025Travelfrom Last 3 Months Family History Medical HistoryRelationNameCommentsNo Known ProblemsDaughterDiabetesFather HypertensionFatherProstate cancerFatherBreast cancerMotherHeart murmurMother LymphomaMotherDiabetesOthersiblingsBreast cancerSisterRelationNameStatusComments Brother1 brotherDaughter1 daughterFatherAliveMotherDeceasedOthersiblingsSister3 sisters Social History Tobacco UseTypesPacks/DayYears UsedDateSmoking Tobacco: FormerCigarettes Smokeless Tobacco: Never Tobacco Cessation:Counseling Given: Not Answered Alcohol UseStandard Drinks/WeekCommentsYes1 (1 standard drink = 0.6 oz pure alcohol)caffeine intake : 1-2 cups per daySocial Connection and Isolation Panel AnswerDate RecordedIn a typical week, how many times do you talk on the phone with family, friends, or neighbors?Never04/16/2024How often do you get together with friends or relatives?Never04/16/2024How often do you attend anabaptism or synagogue services?Never04/16/2024o you belong to any clubs or organizations such as anabaptism groups, unions, fraternal or athletic groups, or school groups?No 04/16/2024How often do you attend meetings of the clubs or organizations you belong to?Never04/16/2024re you , , , , never , or living with a partner?Ultplys3604/16/2024UDIT-CAnswerDate RecordedQ1: How often do you have a drink containing alcohol?Never04/16/2024Q2: How many drinks containing alcohol do you have on a typical day when you are drinking? Patient does not drink04/16/2024Q3: How often do you have six or more drinks on one occasion?Never04/16/2024Overall Financial Resource Strain (CARDIA)AnswerDate RecordedHow hard is it for you to pay for the very basics like food, housing, medical care, and heating?Not very hard04/16/2024[facility] [place] [facility] - Occupational Stress QuestionnaireAnswerDate RecordedDo you feel stress - tense, restless, nervous, or anxious, or unable to sleep at night because yourmind is troubled all the time - these days?Rather much04/16/2024 Exercise Vital SignAnswerDate RecordedOn average, how many days per week do you engage in moderate to strenuous exercise (like a brisk walk)?5 days04/16/2024On average, how many minutes do you engage in exercise at this level?120 min 04/16/2024Hunger Vital SignAnswerDate RecordedWithin the past 12 months, you worried that your food would run out before you got the money to buymore.Never true04/16/2024Within the past 12 months, the food you bought just didn't last and you didn't have money to get more.Never true04/16/2024RAPARE - TransportationAnswerDate RecordedIn the past 12 months, has lack of transportation kept you from medical appointments or from getting medications?No 04/16/2024In the past 12 months, has lack of transportation kept you from meetings, work, or from getting things needed for daily living?No04/16/2024 Housing Stability Vital SignAnswerDate RecordedIn the last 12 months, was there a time when you were not able to pay the mortgage or rent on time?No04/16/2024In the last 12 months, how many places have you lived?In the last 12 months, was there a time when you did not have a steady place to sleep or slept in ashelter (including now)?No04/16/2024Sex and Gender InformationValueDate RecordedSex Assigned at LlqewJdda89/10/2023 6:58 PM ESTLegal BlyRhlg6401/25/2023 7:26 PM EDTGender FgdxtupmHmjr38/10/2023 6:58 PM ESTSexual OrientationStraight 10/22/2023 6:58 PM EST Last Filed Vital Signs Vital SignReadingTime TakenCommentsBlood Blfxntvy097/70004/22/2025 9:19 AM EDT Exqtd975004/22/2025 9:19 AM LLFTrpockletsw23.4 ??C (97.5 ??F)04/22/2025 9:19 AM EDTRespiratory Dyvf385904/22/2025 9:19 AM EDTOxygen Ieglcsowqc45%04/22/2025 9:19 AM EDTInhaled Oxygen Concentration--Yhqenu905 kg (234 lb)05/12/2025 2:25 PM EDT Pdqyoc295.3 cm (5' 9 )05/12/2025 2:25 PM EDTBody Mass Index34.56005/12/2025 2:25 PM EDT Plan of Treatment Health MaintenanceDue DateLast DoneCommentsCT Aiopnajmmxen1969Colonoscopy 1969FIT1969FOBT1969 6347Fclzferdckuoj1969COVID-19 Vaccine ( season), 02/19/2021, 01/29/2021Influenza Vaccine (#1)5Colorectal Cancer Hkqzxrxrd99/26/2027FIT-DNA, 07/28/2021neumococcal Vaccine: Pediatrics (0 to 5 Years) and At-Risk Patients (6 to 64 Years)Aged OutNo longer eligible based on patient's age to complete this topic Procedures Procedure NamePriorityDate/TimeAssociated DiagnosisCommentsLAB COLOGUARD?? COLON CANCER FKNXMRToqpuzx17/26/2024 6:30 AM EST Colon cancer screening from Last 3 Months or Most Recently Relevant to Health Maintenance Results * Cologuard?? colon cancer screening (11/07/2024 6:30 AM EST)ComponentValueRef RangeTest MethodAnalysis TimePerformed AtPathologist SignatureNONINV COLON CA DNA+OCC BLD SCRN STL-IUXWmojmoutQqpxanxx02/03/2025 1:27 PM [employer] (CLIA #:[id number])Comment: NEGATIVE TEST RESULT. A negative Cologuard result indicates a low likelihood that a colorectal cancer (CRC) or advanced adenoma (adenomatous polyps with more advanced pre-malignant features) ??is present. The chance that a person with a negative Cologuard test has a colorectal cancer is less than 1in 1500 (negative predictive value >99.9%) or has an advanced adenoma is less than 5.3% (negative predictive value 94.7%). These data are based on a prospective cross-sectional study of 10,000individuals at average risk for colorectal cancer who were screened with both Cologuard and colonoscopy. (Trevor Garcia al, N Engl J Med 2014;370(14):1987-3860) The normal value (reference range) for this assay is negative. COLOGUARD RE-SCREENING RECOMMENDATION: Periodic colorectal cancer screening is an important part ofpreventive healthcare for asymptomatic individuals at average risk for colorectal cancer. ??Following a negative Cologuard result, the [place] [employer] Society and U.S. Multi-Society Task Force screening guidelines recommend a Cologuard re-screening interval of 3 years. References: [place] [employer] Guideline for Colorectal Cancer Screening: https://www.cancer.or g/cancer/nuiun-afuucd-xtebbz/ygjjogtlt-vjtoubicf-omldsmw/acs-recommendations.htm shaka.; Leandro MCCARTHY, Jyotsna VILA, Quique FarrK, Colorectal Cancer Screening: Recommendations for Physicians and Patients from the U.S. Multi-Society Task Force on Colorectal Cancer Screening , Am J Gastroenterology 2017; 112:6545-2859. TEST DESCRIPTION: Composite algorithmic analysis of stool DNA-biomarkers with hemoglobin immunoassay. ?? Quantitative values of individual biomarkers are not reportable and are not associated with individual biomarker result reference ranges. Cologuard is intended for colorectal cancer screening ofadults of either sex, 45 years or older, [...] (Trevor Garcia al, N Engl J Med 2014;370(14):8289-1007.) Cologuard may produce a false negative or false positive result (no colorectal cancer or precancerous polyp present at colonoscopy follow up). A negative Cologuard test result does not guarantee the absence of CRC or advanced adenoma (pre-cancer). The current Cologuard screening interval is every 3 years. ([place] [employer] Society and U.S. Multi-Society Task Force). Cologuard performance data in a 10,000 patient pivotal study using colonoscopy as the reference method can be accessed at the following location: www.[employer].Anonymous You/results. Additional description of the Cologuard test process, warnings and precautions can be found at www.cologuard.com. Specimen (Source)Anatomical Location / LateralityCollection Method / Volume Collection TimeReceived TimeStool specimen (specimen)11/07/2024 6:30 AM EST 11/11/2024 11:00 AM EST Narrative Authorizing ProviderResult TypeResult StatusMarc Neptali [facility]DE[facility] ORDERABLESFinal ResultPerforming OrganizationAddressCity/State/ZIP CodePhone Number .XAThe [employer] (CLIA #:[id number]) [address] [id number], [employer] (CLIA #:[id number]) [address] [id number] from Last 3 Months or Most Recently Relevant to [place] [address] [place] [address] Care Teams Team MemberRelationshipSpecialtyStart DateEnd Date Willy Gunderson MD PCP - GeneralFamily Medicine04/17/24
--- OUTSIDE RECORDS SUMMARY | 2025-11-01 09:01 | XMS_ITS | Clinical Summary ---
Author Organization [facility] Address [id number] [place] [address] Care Team Providers Care [employer]icon[employer]ors Wafer Breaker Name Role Phone Aniceto Carl MD Primary Care Provider [phone] Allergies No known active allergies Medications MedicationSigDispense QuantityRefillsLast FilledStart DateEnd DateStatus canagliflozin (INVOKANA) 100 mg tablet Take 100 mg by mouth daily.Active sitaGLIPtin (JANUVIA) 100 mg tablet Take 100 mg by mouth daily.Active Active Problems No known active problems Family History Medical HistoryRelationNameCommentsCancerMotherRelationNameStatusCommentsMother Social History Tobacco UseTypesPacks/DayYears UsedDateSmoking Tobacco: FormerChildcareAnswer Date LteblhtnOxaijqpfxDyiiwai28/12/2019EmploymentAnswerDate RecordedEmployment Pthvyqs9004/24/2019Purpose - LifeAnswerDate RecordedPurpose and direction in life Xacxazo92/11/2021Sex and Gender InformationValueDate RecordedSex Assigned at BirthNot on fileLegal RxjSgum7006/18/2015 12:05 PM EDTGender IdentityNot on file Sexual OrientationNot on file Last Filed Vital Signs Vital SignReadingTime TakenCommentsBlood Fqfmopgt699/9605 4:43 PM EDT Ocavk270103/15/2017 4:43 PM EDTTemperature--Respiratory Iflh1425 4:43 PM EDTOxygen Saturation--Inhaled Oxygen Concentration--Jdtoyz80.2 kg (212 lb) 03/15/2017 4:43 PM DIVWrnyxc911.8 cm (5' 10 )03/15/2017 4:43 PM EDTBody Mass Index30.42003/15/2017 4:43 PM EDT Plan of Treatment Health MaintenanceDue DateLast DoneCommentsDepression Nccyfateq00/21/1981Tobacco Zasgkavsh71/21/1981Adult BMI Awghzextk49/21/1987DTaP,Tdap and Td Vaccines (1 - Tdap)1988Zoster (Shingles) Vaccine (1 of 2)2019Influenza Vaccine 07/14/2025 Goals GoalPatient Goal TypeAssociated ProblemsRecent ProgressPatient-Stated?Author Reduce carb intake to 60-75 grams per meal Adrianne Alejo RN Note: Evaluation of progress towards goal: new goal Increase physical activity Adrianne Beavers RN Note: Evaluation of progress towards goal: goal is to exercise 30 min 3 to 5 times weekly Medical Devices Not on file Insurance Care Teams Team MemberRelationshipSpecialtyStart DateEnd Date Aniceto Carl MD [address] [place] [address] PCP - [facility]Faad[facility]03/15/17
== END 2025-11-01 08:57 | disposition home or self-care (01) ==
PROVIDERS: PCP Family Medicine; Visit Provider Family Medicine
DX: E11.65 Type 2 diabetes mellitus with hyperglycemia (principal)
CPT/HCPCS: 36415; 83036